=== PATIENT | male | born 1945 | race Caucasian/White ===

== ENCOUNTER 2016-07-29 07:49 | Inpatient (IN) | payer OTHER, MEDICARE ==
[~2016-07-29] VITALS: Ht 170.2 cm; Wt 117.0 kg
--- NOTE | 2016-07-29 07:55 | ED AMS/SEIZURE/WEAK/DIZZY ---
History of Present Illness General Chief Complaint: General Adult Stated Complaint: weakness Source: patient, old records Exam Limitations: no limitations Allergies Coded Allergies: nickel (UNKNOWN 07/10/15) Reconcile Medications Acetaminophen (Acephen) 650 MG SUPP.RECT 1 SUPP IN Q4H PRN PAIN/TEMP>/100 ( Reported) Acetaminophen 325 MG TABLET 2 TAB PO Q4H PRN PAIN/TEMP>/100 (Reported) Allopurinol 100 MG TABLET 2 TAB PO DAILY GOUT (Reported) Amlodipine Besylate 5 MG TABLET 7.5 MG PO DAILY HEART/BP (Reported) Aspirin (Ecotrin*) 81 MG TABLET.DR 1 TAB PO DAILY HEART/BLOOD (Reported) Atorvastatin Calcium 20 MG TABLET 1 TAB PO DAILY CHOLESTEROL (Reported) Docusate Sodium 100 MG CAPSULE 1 CAP PO BID STOOL SOFTENER (Reported) Ezetimibe (Zetia) 10 MG TABLET 1 TAB PO DAILY CHOLESTEROL (Reported) Fluoxetine HCl (Prozac) 40 MG CAPSULE 1 CAP PO DAILY MENTAL HEALTH (Reported) Furosemide (Lasix) 40 MG TABLET 1 TAB PO DAILY DIURETIC (Reported) Gabapentin 300 MG CAPSULE 1 CAP PO BID UNKNOWN (Reported) Gabapentin 600 MG TABLET 1 TAB PO 1600 UNKNOWN (Reported) Guaifenesin 400 MG TABLET 1 TAB PO BID MUCUS (Reported) Insulin Glargine,Hum.rec.anlog (Lantus Solostar) 100 UNIT/ML (3 ML) INSULN.PEN 15 UNITS SC QHS DM (Reported) Ipratropium/Albuterol Sulfate (Iprat-Albut 0.5-3(2.5) MG/3 Ml) 0.5 MG-3 MG (2.5 MG BASE)/3 ML AMPUL.NEB 1 UNIT INH Q4H PRN SOB/WHEEZING/RESP.DISTRESS ( Reported) Lisinopril 30 MG TABLET 60 MG PO DAILY BP (Reported) Mag Hydrox/Al Hydrox/Simeth (Almacone Liquid) (Unknown Strength) ORAL.SUSP 30 ML PO DAILY GI (Reported) Mag Hydrox/Al Hydrox/Simeth (Maalox Advanced Suspension) 200 MG-200 MG-20 MG/5 ML ORAL.SUSP 30 ML PO Q4H PRN GASTRITIS (Reported) Magnesium Hydroxide (Milk Of Magnesia) 400 MG/5 ML ORAL.SUSP 30 ML PO DAILY PRN CONSTIPATION (Reported) Metolazone 2.5 MG TABLET 1 TAB PO Friday UNKNOWN (Reported) Metoprolol Tartrate (Lopressor) 50 MG TABLET 1 TAB PO BID HEART/BP (Reported) Multivitamin (Multi-Day Vitamins) 1 EACH TABLET 1 TAB PO DAILY SUPPLEMENT ( Reported) Na Phos,M-B/Na Phos,Di-Ba (Fleet Enema) 19 GRAM-7 GRAM/118 ML ENEMA 1 E RC DAILY PRN CONSTIPATION (Reported) Oxycodone HCl/Acetaminophen (Percocet 5-325 MG Tablet) 5 MG-325 MG TABLET 1 TAB PO Q8H PRN PAIN (Reported) Pantoprazole Sodium 40 MG TABLET.DR 1 TAB PO DAILY GI (Reported) Phenytoin (Dilantin) 100 MG CAPSULE 2 CAP PO BID SEIZURES (Reported) Polyethylene Glycol 3350 (Miralax) 17 GRAM POWD.PACK 1 PAC PO BID GI ( Reported) dissolve in water Potassium Chloride 20 MEQ TAB.ER.PRT 2 TAB PO 0800 SUPPLEMENT (Reported) Potassium Chloride 20 MEQ TAB.ER.PRT 1 TAB PO 1800 SUPPLEMENT (Reported) Sennosides (Senna) 8.6 MG TABLET 2 TAB PO DAILY GI (Reported) Sodium Chloride (Deep Sea) 0.65 % SPRAY 2 SPRAY NASB TID NASAL CONGESTION ( Reported) Spironolactone (Aldactone) 25 MG TABLET 1 TAB PO DAILY DIURETIC/BP (Reported) Trazodone HCl 50 MG TABLET 25 MG PO PRN INSOMNIA (Reported) Warfarin Sodium (Coumadin) 2.5 MG TABLET 1 TAB PO DAILY BLOOD THINNER ( Reported) Triage Nurses Notes Reviewed? yes Onset: Gradual Duration: week(s):, constant Timing: recent history Injury Environment: home Severity: moderate Severity Numbers: 7 No Modifying Factors: none Associated Symptoms: cough HPI: 70 Year old male biba with history of CVA with aphasia, bed-bound in the senior care, right-sided paralysis, CAD, PAF on coumadin, hypertension, diabetes and obesity presents brought in by ambulance from [facility] due to increased lethargy and weakness for the past few weeks according to the patient's . The patient had an outpatient x-ray performed yesterday that showed no pneumonia however she states that he has been sleeping and lethargic more so than normal. She reports that he had a low-grade fever of 99 yesterday no sick contacts no recent trauma or fall. On arrival the patient is complaining of chronic lower back pain which his states is unchanged from previous as he is normally wheelchair-bound. He denies any leg or arm pain no chest pain abdominal pain nausea vomiting or diarrhea. There are no other modifying factors or associated symptoms otherwise (CHAR CORRAL) Vital Signs & Intake/Output Vital Signs & Intake/Output Vital Signs Date Time Temp Pulse Resp B/P Pulse O2 O2 Flow FiO2 Ox Delivery Rate 07/29 1243 69 18 109/55 99 Room Air Room Air 07/29 1226 76 24 105/54 99 BIPAP 30% 07/29 1210 64 97 / 1207 69 24 102/51 99 BIPAP 30% 07/29 1142 69 24 102/56 96 BIPAP 30% 07/29 1058 98.0 69 2 100/53 BIPAP 07/29 1033 97.1 68 24 108/55 98 BIPAP 30% 07/29 1026 98 04/ 0937 64 20 106/55 99 Nasal 3.0L Cannula 07/29 0925 97.9 74 20 110/56 07/29 0805 96 Nasal 2.0L Cannula 07/29 0759 98.0 70 24 146/65 94 Room Air Past History Medical History Any Pertinent Medical History? see below for history Neurological: CVA (with aphashia) Cardiovascular: AFIB, CAD (W/ STENTS), hypertension, PACEMAKER Pneumonia Vaccine: 11/02/06 Influenza Vaccine: 05/21/11 Surgical History Surgical History: CABG Psychosocial History Who do you live with Other (see notes) Services at Home None What is your primary language Hong Konger Family History Hx Contributory? No (CHAR CORRAL) Review of Systems Review of Systems Constitutional: Reports: see HPI. All Other Systems: Reviewed and Negative Comments Review of systems: See HPI, all other systems negative. Constitutional: No chills (+) fever or weight loss HEENT: No visual changes no sore throat no congestion Cardiovascular: No chest pain ,palpitation , orthopnea or ankle swelling Skin: No jaundice no rashes Respiratory: No dyspnea cough sputum or hemoptysis GI: No nausea no vomiting : No dysuria no hematuria Musclulo skeletal: chronic back pain no neck pain, Neurologic: No numbness no confusion Psych: No stress anxiety or depression,. Heme/endocrine: No bruising no bleeding no polyuria or polydipsia Immunology: No splenectomy (CHAR CORRAL) Physical Exam Physical Exam General Appearance: well developed/nourished, no apparent distress, alert, awake Comments: elderly male in no acute distress HEENT: Normal EENT exam; PERRL, EOMI, HEAD is atraumatic. moist mucous membranes. Neck: Supple, normal range of motion Back: Nontender, no CVA tenderness. Full range of motion Cardiovascular: Regular rate and rhythms no murmurs rubs or gallops, normal JVP Respiratory: Chest nontender.There were no bony deformities, no asymmetry. No respiratory distress. Patient speaking in full complete sentences. Breath sounds clear to auscultation bilaterally: NO W/R/R Abdomen: Soft, nontender nondistended, no appreciable organomegaly. Normal bowel sounds. No rebound/guarding, No ascites. Extremity: No edema, full range of motion of extremities, normal and equal pulses bilaterally, 5 out of 5 strength noted to left upper and lower extremities, right sided extremity weakness chronic secondary to cva Neuro: Alert oriented x3, motor sensory normal, cranial nerves II through XII grossly intact. There were no obvious focal neurologic abnormalities. Skin: No appreciable rash on exposed skin, skin is warm and dry. Psych: Mood and affect is normal, memory and judgment is normal. Core Measures ACS in differential dx? Yes CVA/TIA Diagnosis: No Severe Sepsis Present: No Septic Shock Present: No (NISA TAPIA,CHAR) Progress Differential Diagnosis: arrythmia, anemia, benign positional vertigo, CVA/stroke , dehydration, electrolyte imbalance, GI bleed, hypoglycemia, hypoxia, pneumonia , UTI/pyelo, vertebrobasilar insuff Diagnostic Imaging: Viewed by Me: Radiology Read, CT Scan. Discussed w/RAD: Radiology Read, CT Scan. Radiology Impression: PATIENT: NORAH VOGT PRESENT AGE: 70 PATIENT ACCOUNT NO: [id number] : 45 LOCATION: [facility] ORDERING PHYSICIAN: CHAR TAPIA SERVICE DATE: 07/29/16 EXAM TYPE: RAD - XRY-PORTABLE CHEST XRAY EXAMINATION: XR PORTABLE CHEST CLINICAL INFORMATION: Lethargy and weakness. COMPARISON: 11/21/2012 TECHNIQUE: Portable AP view of the chest was obtained. FINDINGS: Lungs are hypoinflated resulting in crowding of bronchovascular structures in the bases. No evidence of acute interstitial edema, focal consolidation or pleural effusion. Cardiac silhouette is chronically enlarged. The sternotomy wires are intact. There is an AICD/ pacemaker with biventricular leads remaining in their expected positions. No acute skeletal findings. IMPRESSION: Mild cardiomegaly and surgical changes from remote coronary artery bypass grafting. No acute cardiopulmonary findings compared to 11/20/2012. DICTATED BY: RHETT MCDANIEL MD DATE/TIME DICTATED:07/29 SEX CRIMES DETECTIVE:EVERT DATE/TIME TRANSCRIBED:07/29/16910 CONFIDENTIAL, DO NOT COPY WITHOUT APPROPRIATE AUTHORIZATION. <Electronically signed in Other Vendor System> SIGNED BY: RHETT MCDANIEL MD 07/29/16917, PATIENT: NORAH VOGT PRESENT AGE: 70 PATIENT ACCOUNT NO: [id number] : 45 LOCATION: [facility] ORDERING PHYSICIAN: CHAR TAPIA SERVICE DATE: 07/29/16 EXAM TYPE: CAT - CT CHEST WO IV CONTRAST EXAMINATION: CT CHEST WITHOUT CONTRAST CLINICAL INFORMATION: Lethargy. Weakness and cough. COMPARISON: Radiograph from today. CT from 09/04/2008. TECHNIQUE: Multidetector volumetric CT imaging of the chest was done. Axial MIP volume rendering provided. Sagittal and coronal reformatted images were obtained. DLP: 668 mGy-cm FINDINGS: LUNGS: Secretions are seen within the trachea. Scattered bronchial filling defects are noted in the lower lobes. Motion limits evaluation of the lower lobes. Calcified granulomata are noted. Geographic groundglass opacities are seen, most prominently affecting the upper lobes. No pneumothorax. MEDIASTINUM: Left chest wall pacer noted with leads terminating in the right ventricle and coronary sinus. The heart is enlarged. Coronary artery calcifications are present. Small amount of gas seen within the main pulmonary artery, right atrium, and right ventricle. No pericardial effusion. No mediastinal lymphadenopathy. Prominence of the superior mediastinal fat. PLEURA: There is no pleural effusion. No pleural mass or thickening. Pleural calcifications seen at the left base. AXILLA: Multiple small lymph nodes. Edema is seen along the right lateral chest wall. UPPER ABDOMEN: Ascites. Anasarca is seen within the abdominal wall. OSSEOUS STRUCTURES: DISH. No acute or suspicious osseous abnormalities. Median sternotomy wires noted. IMPRESSION: Groundglass opacities bilaterally are nonspecific. These may be infectious or inflammatory in etiology. Hypersensitivity reaction is possible. No septal thickening seen to suggest edema. Scattered filling defects within the bronchi could be associated with aspiration. DICTATED BY: JANEE MASON MD DATE/TIME DICTATED:07/29/161014 SEX CRIMES DETECTIVE:EVERT DATE/TIME TRANSCRIBED:07/29/161014 CONFIDENTIAL, DO NOT COPY WITHOUT APPROPRIATE AUTHORIZATION. <Electronically signed in Other Vendor System> SIGNED BY: JANEE MASON MD 07/29/16 1024 Initial ED EKG: VENTRICULAR PACED AT 70, NONSPECIFIC ST SEG CHANGES,RIGHT AXIS DEVIATION Prior EKG: unchanged (06/2011) Rhythm Strip: paced rhythm (CHAR CORRAL) Plan of Care: Orders Procedure Date/time Status PROTHROMBIN TIME 07/30 0500 Active PHOSPHORUS 07/30 0500 Active MAGNESIUM 07/30 0500 Active HEPATIC FUNCTION PANEL 07/30 0500 Active CBC WITHOUT DIFFERENTIAL 07/30 0500 Active BASIC ELECTROLYTES PLUS BUN&CR 07/30 0500 Active Nothing by Mouth 07/29 L Active BASIC ELECTROLYTES PLUS BUN&CR 07/[address] HEAD WO IV CONTRAST 07/[address] ABD & PELVIS W/O IV CONTRAS 07/29 1248 Active Lab Add-on Test 07/29 1215 Active LACTIC ACID 07/29 1202 Complete ARTERIAL BLOOD GAS (GEN) 07/29 1144 Complete TRC EVALUATION (GEN) 07/29 1054 Active Lab Add-on Test 07/29 1050 Active Admit to inpatient 07/29 1049 Active Pathway - chart 07/29 1047 Active Pathway - chart 07/29 1046 Active House Staff 07/29 1046 Active Patient Data 07/29 1046 Active Code Status 07/29 1046 Active ARTERIAL BLOOD GAS (GEN) 07/29 0927 Complete Patient Data 07/29 0923 Active POTASSIUM-PLASMA 07/29 0923 Complete Add-on Test (ER Only) 07/29 0921 Active Add-on Test (ER Only) 07/29 0904 Active LACTIC ACID 07/29 0902 Complete Straight Cath 07/29 0854 Active Add-on Test (ER Only) 07/29 0851 Active Add-on Test (ER Only) 07/29 0825 Active URINE DRUGS OF ABUSE 07/29 0825 Complete Telemetry/Heat Treat Supervisor 07/29 0823 Active RAPID VIRAL INFLUENZA A 07/29 0810 Complete CULTURE,URINE 07/29 0810 Active BLOOD CULTURE 07/29 0810 Active URINALYSIS 07/29 0810 Complete TROPONIN LEVEL 07/29 0810 Complete PARTIAL THROMBOPLASTIN TIME 07/29 08 Complete PROTHROMBIN TIME 07/29 0810 Complete DILANTIN 07/29 0810 Complete COMPREHENSIVE METABOLIC PANEL 07/29 0810 Complete CBC WITHOUT DIFFERENTIAL 07/29 08 Complete B-TYPE NATRIURETIC PEP (BNP) 07/29 0810 Complete Intake & Output 07/29 0804 Active THYROID STIMULATING HORMONE 07/29 08 Complete MAGNESIUM 07/29 08 Complete CREATINE PHOSPHOKINASE 07/29 0800 Complete EKG 07/29 0756 Active SWALLOW EVALUATION 07/29 UNK Active BIPAP 07/29 UNK Complete VTE Mechanical Prophylaxis 07/29 UNK Active FingerStick- Glucose 07/29 UNK Active [place], Insertion/Removal/Asses 07/29 UNK Active PHYSICIAN CONSULT 07/29 UNK Active ECHOCARDIOGRAM 07/29 UNK Active Current Medications Sig/Phil Start time Last Medication Dose Stop Time Status Admin Insulin Human Regular 0 Q4 07/29 1400 AC (NovoLIN R) Naloxone HCl 0.4 MG ONCE ONE 07/29 1315 UNVr (Narcan) 07/29 1316 Acetaminophen 650 MG Q6P PRN 07/29 1100 AC (Tylenol) Oxycodone/ 1 TAB Q6P PRN 07/29 1100 AC Acetaminophen (Percocet) Oxycodone/ 2 TAB Q6P PRN 07/29 1100 AC Acetaminophen (Percocet) Laboratory Tests 07/29/16 1208: Lactic Acid 1.1 07/29/16 1155: pH 7.30 *L, pCO2 48 H, pO2 90, HCO3 23, ABG O2 Sat (Measured) 95.0 L, P-50 ( Temp Corrected) N, Carboxyhemoglobin 1.4 L, O2 Concentration % 30, Temperature 98.0, Respiration Rate 24, O2 Delivery Method BIPAP, Vent Mode ST, Expiratory Pressure 6, Inspiratory Pressure 18, Phlebotomy Draw Site LEFT RADIAL 07/29/16 0940: pH 7.28 *L, pCO2 50 H, pO2 137 H, HCO3 23, ABG O2 Sat (Measured) 97.0, P-50 ( Temp Corrected) N, Carboxyhemoglobin 1.3 L, O2 Concentration % 3L, Temperature 97.9, O2 Delivery Method N/C, Phlebotomy Draw Site LEFT RADIAL 07/29/16 0923: Plasma Potassium 5.9 H 07/29/16 0911: Lactic Acid 0.7 07/29/16 0828: Urinalysis LIGHT H, Urine Color YEL, Urine Clarity HAZY H, Urine pH 6.0, Ur Specific Mckinney 1.020, Urine Protein 30 H, Urine Ketones NEG, Urine Nitrite NEG, Urine Bilirubin NEG, Urine Urobilinogen 0.2, Ur Leukocyte Esterase MOD H, Ur Microscopic SEDIMENT EXAMINED, Urine RBC 1-3, Urine WBC 5-10 H, Ur Epithelial Cells FEW, Urine Bacteria FEW H, Hyaline Casts 1-3 H, Urine Hemoglobin TRACE-INTACT H, Urine Glucose NEG 07/29/16 0825: Urine Opiates Screen < 100.00, Methadone Screen < 40, Barbiturate Screen 108, Ur Phencyclidine Scrn < 6.00, Amphetamines Screen < 100, U Benzodiazepines Scrn < 85, Urine Cocaine Screen < 50, Urine Cannabis Screen < 5.00 07/29/16 0800: Anion Gap 10, Estimated GFR 46 L, BUN/Creatinine Ratio 34.0 H, Glucose 144 H, Calcium 8.5, Magnesium 3.2 H, Total Bilirubin 0.6, AST 22, ALT 32, Alkaline Phosphatase 135 H, Creatine Kinase < 20 L, Troponin I 0.02, Dbh-K-Sgcvptoepli Pept 6230 H, Total Protein 6.3, Albumin 3.3 L, Globulin 3.0, Albumin/Globulin Ratio 1.1, TSH 1.390, PT 28.0 H, INR 2.69 H, APTT 37, CBC w Diff MAN DIFF ORDERED, RBC 3.77 L, MCV 80.8, MCH 25.5 L, RDW 18.0 H, MPV 7.5, Gran % 83.0 H, Lymphocytes % 9.8 L, Monocytes % 5.7, Eosinophils % 0.6, Basophils % 0.9, Absolute Granulocytes 17.3 H, Absolute Lymphocytes 2.0, Absolute Monocytes 1.2 H, Absolute Eosinophils 0.1, Absolute Basophils 0.2, Platelet Estimate ADEQUATE, Polychromasia 1+, Hypochromic-Microcytic 1+, Anisocytosis 1+, PUBS MCHC 31.6 L, Phenytoin 10.0 Microbiology 07/29 908 NASOPHARYN: Influenza Virus A & B Rapid Smear - COMP 04/10 0830 BLOOD: Blood Culture - RECD 07/29 0828 URINE ROUT: Urine Culture - RECD 07/29 0800 BLOOD: Blood Culture - RECD Labs ordered old records reviewed patient is awake without any complaints at this times Case discussed with Dr. Pizarro will treat with Rocephin 1 g IV given leukocytosis patient remains afebrile and normotensive. I discussed with the patient as well as all this lab results need for admission calcium gluconate 1 g IV ordered, given patient's body habitus and paralysis secondary to previous CVA we'll hold on Kayexalate at this time waiting for plasma potassium 2 results Case discussed with Dr. GOLDMAN- Will admit to telemetry, agrees with plan advised to get CT of the chest to rule out pneumonia 07/29/2016 9:54:19 AM case discussed with Dr. Pizarro will put patient on BIPAP, PT WILL BE upgraded to icu (CHAR CORRAL) Departure Departure Time of Disposition: 923 Disposition: STILL A PATIENT Condition: Stable Clinical Impression Primary Impression: Hypercapnic respiratory failure Secondary Impressions: Hyperkalemia, Leukocytosis, UTI (urinary tract infection) Referrals: CORTEZ GOLDMAN MD (PCP/Family) Departure Forms: Customer Survey General Discharge Information Admission Note Spoke With: CORTEZ GOLDMAN MD Documentation of Exam: Documentation of any treatments & extenuating circumstances including Concerns Regarding Discharge (functional status, medication knowledge or non-compliance, living conditions, etc.) that warrant an admission rather than observation: trend labs, cultures, iv abx, cardiology consult, premature discharge would be medically harmful (CHAR CORRAL) PA/FIRE INVESTIGATION LIEUTENANT Co-Sign Statement Statement: ED Attending supervision documentation- [X] I saw and evaluated the patient. I have also reviewed all the pertinent lab results and diagnostic results. I agree with the findings and the plan of care as documented in the PA's/FIRE INVESTIGATION LIEUTENANT's documentation. [] I have reviewed the ED Record and agree with the PA's/FIRE INVESTIGATION LIEUTENANT's documentation. [] Additions or exceptions (if any) to the PAs/FIRE INVESTIGATION LIEUTENANT's note and plan are summarized below: [] (SEVEN PRESLEY,LYNNE Fernandez) Critical Care Note Critical Care Note Critical Care Time: 30-74 min (CHAR CORRAL)
[2016-07-29 08:36] LABS: ABSOLUTE BASOPHIL COUNT 0.2 /CUMM (0.0-0.2); ABSOLUTE EOSINOPHIL COUNT 0.1 /CUMM (0.0-0.7); ABSOLUTE GRANULOCYTE CT 17.3 /CUMM (1.4-6.5); ABSOLUTE MONOCYTE COUNT 1.2 /CUMM (0.10-0.60); BASOPHIL % 0.9 % (0.0-2.0); EOSINOPHIL % 0.6 % (0-5); HEMATOCRIT 30.4 % (42-52); MEAN CORPUSCULAR HGB 25.5 PG (27.0-31.0); MEAN CORPUSCULAR HGB CONC 31.6 G/DL (33.0-37.0); MEAN CORPUSCULAR VOLUME 80.8 FL (80.0-94.0); MEAN PLATELET VOLUME 7.5 FL (7.4-10.4); PLATELET COUNT 282 /CUMM (130-400); RED BLOOD CELL CT 3.77 /CUMM (4.70-6.10); WHITE BLOOD CELL COUNT 20.9 /CUMM (4.8-10.8)
[2016-07-29 08:46] LABS: PTT 37 SEC (25-37)
--- NOTE | 2016-07-29 09:18 | RADIOLOGY REPORT ---
EXAMINATION: XR PORTABLE CHEST CLINICAL INFORMATION: Lethargy and weakness. COMPARISON: 11/21/2012 TECHNIQUE: Portable AP view of the chest was obtained. FINDINGS: Lungs are hypoinflated resulting in crowding of bronchovascular structures in the bases. No evidence of acute interstitial edema, focal consolidation or pleural effusion. Cardiac silhouette is chronically enlarged. The sternotomy wires are intact. There is an AICD/pacemaker with biventricular leads remaining in their expected positions. No acute skeletal findings. IMPRESSION: Mild cardiomegaly and surgical changes from remote coronary artery bypass grafting. No acute cardiopulmonary findings compared to 11/20/2012.
--- NOTE | 2016-07-29 09:25 | History & Physical ---
JULIO LONG 07/29/16 0925: General Information and HPI MD Statement: I have seen and personally examined NORAH NG and documented this H&P. The patient is a 70 year old M who presented with a patient stated chief complaint of [progressive lethargy]. 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 At his baseline he is interactive on a daily basis is able to feed himself and utilize his left leg for mobility. His reports that over the past week he has been noted to be sleeping more during the day, a leak at night. A urinalysis was performed last week which did not come back remarkable. There was concern for possible aspiration pneumonia and a CXR was also unremarkable. Over the past 2 days his generalized lethargy has become more pronounced with associated decrease PO intake. His reports that one medication change included a decrease in oxycodone and ?? increasing his gabapentin dose due to chronic constipation secondary to narcotics. This morning he was noted to have a low-grade temperature and blood pressure 90/ 60 prior to arrival in the ED. Allergies/Medications Allergies: Coded Allergies: nickel (UNKNOWN 07/10/15) Home Med list Acetaminophen (Acephen) 650 MG SUPP.RECT 1 SUPP CO Q4H PRN PAIN/TEMP>/100 ( Reported) Acetaminophen 325 MG TABLET 2 TAB PO Q4H PRN PAIN/TEMP>/100 (Reported) Allopurinol 100 MG TABLET 2 TAB PO DAILY GOUT (Reported) Amlodipine Besylate 5 MG TABLET 7.5 MG PO DAILY HEART/BP (Reported) Aspirin (Ecotrin*) 81 MG TABLET.DR 1 TAB PO DAILY HEART/BLOOD (Reported) Atorvastatin Calcium 20 MG TABLET 1 TAB PO DAILY CHOLESTEROL (Reported) Docusate Sodium 100 MG CAPSULE 1 CAP PO BID STOOL SOFTENER (Reported) Ezetimibe (Zetia) 10 MG TABLET 1 TAB PO DAILY CHOLESTEROL (Reported) Fluoxetine HCl (Prozac) 40 MG CAPSULE 1 CAP PO DAILY MENTAL HEALTH (Reported) Furosemide (Lasix) 40 MG TABLET 1 TAB PO DAILY DIURETIC (Reported) Gabapentin 300 MG CAPSULE 1 CAP PO BID UNKNOWN (Reported) Gabapentin 600 MG TABLET 1 TAB PO 1600 UNKNOWN (Reported) Guaifenesin 400 MG TABLET 1 TAB PO BID MUCUS (Reported) Insulin Glargine,Hum.rec.anlog (Lantus Solostar) 100 UNIT/ML (3 ML) INSULN.PEN 15 UNITS SC QHS DM (Reported) Ipratropium/Albuterol Sulfate (Iprat-Albut 0.5-3(2.5) MG/3 Ml) 0.5 MG-3 MG (2.5 MG BASE)/3 ML AMPUL.NEB 1 UNIT INH Q4H PRN SOB/WHEEZING/RESP.DISTRESS ( Reported) Lisinopril 30 MG TABLET 60 MG PO DAILY BP (Reported) Mag Hydrox/Al Hydrox/Simeth (Almacone Liquid) (Unknown Strength) ORAL.SUSP 30 ML PO DAILY GI (Reported) Mag Hydrox/Al Hydrox/Simeth (Maalox Advanced Suspension) 200 MG-200 MG-20 MG/5 ML ORAL.SUSP 30 ML PO Q4H PRN GASTRITIS (Reported) Magnesium Hydroxide (Milk Of Magnesia) 400 MG/5 ML ORAL.SUSP 30 ML PO DAILY PRN CONSTIPATION (Reported) Metolazone 2.5 MG TABLET 1 TAB PO Friday UNKNOWN (Reported) Metoprolol Tartrate (Lopressor) 50 MG TABLET 1 TAB PO BID HEART/BP (Reported) Multivitamin (Multi-Day Vitamins) 1 EACH TABLET 1 TAB PO DAILY SUPPLEMENT ( Reported) Na Phos,M-B/Na Phos,Di-Ba (Fleet Enema) 19 GRAM-7 GRAM/118 ML ENEMA 1 E RC DAILY PRN CONSTIPATION (Reported) Oxycodone HCl/Acetaminophen (Percocet 5-325 MG Tablet) 5 MG-325 MG TABLET 1 TAB PO Q8H PRN PAIN (Reported) Pantoprazole Sodium 40 MG TABLET.DR 1 TAB PO DAILY GI (Reported) Phenytoin (Dilantin) 100 MG CAPSULE 2 CAP PO BID SEIZURES (Reported) Polyethylene Glycol 3350 (Miralax) 17 GRAM POWD.PACK 1 PAC PO BID GI ( Reported) dissolve in water Potassium Chloride 20 MEQ TAB.ER.PRT 2 TAB PO 0800 SUPPLEMENT (Reported) Potassium Chloride 20 MEQ TAB.ER.PRT 1 TAB PO 1800 SUPPLEMENT (Reported) Sennosides (Senna) 8.6 MG TABLET 2 TAB PO DAILY GI (Reported) Sodium Chloride (Deep Sea) 0.65 % SPRAY 2 SPRAY NASB TID NASAL CONGESTION ( Reported) Spironolactone (Aldactone) 25 MG TABLET 1 TAB PO DAILY DIURETIC/BP (Reported) Trazodone HCl 50 MG TABLET 25 MG PO PRN INSOMNIA (Reported) Warfarin Sodium (Coumadin) 2.5 MG TABLET 1 TAB PO DAILY BLOOD THINNER ( Reported) Past History Travel History Traveled to [place] past 21 day No Medical History Neurological: CVA (with aphashia) Cardiovascular: AFIB, CAD (W/ STENTS), hypertension, PACEMAKER Endocrine: diabetes Pneumonia Vaccine: 11/02/06 Influenza Vaccine: 05/21/11 Surgical History Surgical History: CABG Past Family/Social History Psychosocial History Services at Home: None Review of Systems Review of Systems Constitutional: Reports: see HPI. EENTM: Reports: see HPI. Cardiovascular: Reports: see HPI. Respiratory: Reports: see HPI. GI: Reports: see HPI. Genitourinary: Reports: see HPI. Musculoskeletal: Reports: see HPI. Exam & Diagnostic Data Last 24 Hrs of Vital Signs/I&O Vital Signs Date Time Temp Pulse Resp B/P Pulse O2 O2 Flow FiO2 Ox Delivery Rate 07/29 1058 98.0 69 2 100/53 BIPAP 07/29 1033 97.1 68 24 108/55 98 BIPAP 30% 07/29 1026 98 07/29 0937 64 20 106/55 99 Nasal 3.0L Cannula 07/29 0925 97.9 74 20 110/56 07/29 0805 96 Nasal 2.0L Cannula 07/29 0759 98.0 70 24 146/65 94 Room Air Intake & Output 07/29 1600 07/29 0800 07/29 0000 Intake Total Output Total 200 Balance -200 Output, Urine 200 Patient 255 lb Weight Physical Exam General Appearance patient is laying in bed unresponsive at this time, minimally arousable to sternal rub Skin No Breakdown HEENT Mucous Membr. moist/pink Cardiovascular Normal S1, Normal S2, irregularly irregular heart rhythm. Distant heart sounds Lungs currently on BiPAP, distant lung sounds, no evidence of wheezing at this time Abdomen Soft, No Tenderness, distended abdomen, tympanic to percussion Neurological unable to complete neuro assessment at this time due to clinical condition. Positive Babinski on left foot Extremities Normal Pulses, 2+ pitting edema on RLE, chronic Vascular Pulses Symmetrical Last 24 Hrs of Labs/Emil: Laboratory Tests 07/29/16 0940: pH 7.28 *L, pCO2 50 H, pO2 137 H, HCO3 23, ABG O2 Sat (Measured) 97.0, P-50 ( Temp Corrected) N, Carboxyhemoglobin 1.3 L, O2 Concentration % 3L, Temperature 97.9, O2 Delivery Method N/C, Phlebotomy Draw Site LEFT RADIAL 07/29/16 0923: Plasma Potassium 5.9 H 07/29/16 0911: Lactic Acid 0.7 07/29/16 0828: Urinalysis LIGHT H, Urine Color YEL, Urine Clarity HAZY H, Urine pH 6.0, Ur Specific Donna 1.020, Urine Protein 30 H, Urine Ketones NEG, Urine Nitrite NEG, Urine Bilirubin NEG, Urine Urobilinogen 0.2, Ur Leukocyte Esterase MOD H, Ur Microscopic SEDIMENT EXAMINED, Urine RBC 1-3, Urine WBC 5-10 H, Ur Epithelial Cells FEW, Urine Bacteria FEW H, Hyaline Casts 1-3 H, Urine Hemoglobin TRACE-INTACT H, Urine Glucose NEG 07/29/16 0800: Anion Gap 10, Estimated GFR 46 L, BUN/Creatinine Ratio 34.0 H, Glucose 144 H, Calcium 8.5, Magnesium 3.2 H, Total Bilirubin 0.6, AST 22, ALT 32, Alkaline Phosphatase 135 H, Creatine Kinase < 20 L, Troponin I 0.02, Fzd-S-Yexsqjhmaai Pept 6230 H, Total Protein 6.3, Albumin 3.3 L, Globulin 3.0, Albumin/Globulin Ratio 1.1, TSH 1.390, PT 28.0 H, INR 2.69 H, APTT 37, CBC w Diff MAN DIFF ORDERED, RBC 3.77 L, MCV 80.8, MCH 25.5 L, RDW 18.0 H, MPV 7.5, Gran % 83.0 H, Lymphocytes % 9.8 L, Monocytes % 5.7, Eosinophils % 0.6, Basophils % 0.9, Absolute Granulocytes 17.3 H, Absolute Lymphocytes 2.0, Absolute Monocytes 1.2 H, Absolute Eosinophils 0.1, Absolute Basophils 0.2, Platelet Estimate ADEQUATE, Polychromasia 1+, Hypochromic-Microcytic 1+, Anisocytosis 1+, PUBS MCHC 31.6 L, Phenytoin 10.0 Microbiology 07/29 908 NASOPHARYN: Influenza Virus A & B Rapid Smear - COMP 07/29 0830 BLOOD: Blood Culture - RECD 07/29 0828 URINE ROUT: Urine Culture - RECD 07/29 0800 BLOOD: Blood Culture - RECD Diagnostic Data EKG Results Ventricular paced rhythm. HR 70 bpm. Low voltage throughout. Nonspecific ST depression. QTC 441 CXR Results Mild cardiomegaly and surgical changes from remote coronary artery bypass grafting. No acute cardiopulmonary findings compared to 11/20/2012. Other Results CT chest: Groundglass opacities bilaterally are nonspecific. These may be infectious or inflammatory in etiology. Hypersensitivity reaction is possible. No septal thickening seen to suggest edema. Scattered filling defects within the bronchi could be associated with aspiration. 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 VS on admission: BP 146/65, HR 70, RR 24, SPO2 94% on 3L NC, T 98.0 Pertinent labs: WBC 20.9, H&H 9.6/30.4, platelets 282, potassium 6.0, chloride 104, bicarbonate 24, BUN/CR 51/1.5, glucose 144 INR: 2.69 AB.28/50/137/23/3L NC ProBNP: 6230 Troponin: 0.02 Urinalysis: Moderate LE, 5-10 WBCs, few bacteria, positive hemoglobin Problem list: 1. Hypercarbic restrictive failure 2. SIRS criteria: WBC 20.9, RR 24 3. Aspiration versus HCAP 4. Hyperkalemia 5. Chronic kidney disease 6. HFrEF (LVEF 35-40% 2011), pulm HTN (60mmHG), CAD s/p CABG (2001), AICD (2007) 7. Previous history of CVA with right-sided deficits 8. BROOKS not on CPAP 9. Obesity Plan: 1. Hypercarbic restrictive failure * Etiology may be secondary to recent changes in his gabapentin dose with underlying chronic kidney disease * Consider holding off on gabapentin, gentle hydration and monitor for clinical improvement * Patient is currently on BiPAP * Will follow up phos level and replete for > 2.0 2. SIRS criteria: WBC 20.9, RR 24 * Etiology could be secondary to aspiration pneumonia vs UTI (less likely in the setting of unremarkable UA) * We'll start patient on vancomycin and ceftaz * Follow-up urine and blood cultures and adjust antibiotics accordingly 3. Aspiration versus HCAP * Recommendations as above * Vancomycin 1.5 g daily, ceftaz 1 g BID 4. Hyperkalemia * Patient has been on spironolactone. In the setting of renal insufficiency this may be the likely etiology * Calcium gluconate 1, insulin 10 units, 1 amp of dextrose * Repeat electrolytes at 2 PM 5. Chronic kidney disease * Renal function appears to be patient's baseline: BUN/CR 51/1.5 * With nephrotoxic agents 6. HFrEF (LVEF 35-40% 2011), pulm HTN (60mmHG), CAD s/p CABG (2001), AICD (2007) * Repeat echocardiogram * Obtain cardio consult in the setting of borderline hypotension 7. Previous Hx of CVA * Swallow eval once more awake * Continue iwht antiplatelet therapy 8. BROOKS not on CPAP * Current settings 05/10 at 25 BPM * Adjust pressures based on patient's systolic blood pressure DVT prophylaxis - heparin Code status - DNR/DNI As Ranked By This Provider Problem List: 1. Hypercapnic respiratory failure 2. SIRS (systemic inflammatory response syndrome) 3. Aspiration pneumonia 4. Hyperkalemia 5. CKD (chronic kidney disease) 6. HFrEF (heart failure with reduced ejection fraction) 7. Obstructive sleep apnea syndrome Core Measures/Miscellaneous Acute Coronary Syndrome ACS Diagnosis: No Cerebrovascular Accident CVA/TIA Diagnosis: No Congestive Heart Failure CHF Diagnosis: No Venous Thromboembolism VTE Risk Factors: Age > 40 No Mech VTE prophylaxis d/t: No contraindications No VTE Pharm Prophylaxis d/t: No contraindications VTE Diagnosis: No VTE Type: NONE VTE Confirmed by (Test): NONE Severe Sepsis Severe Sepsis Present: No Septic Shock Septic Shock Present: No Miscellaneous Documentation Attending Case Discussed With: WISAM PAN MD Primary Care Physician: CORTEZ GOLDMAN MD Patient sees these Specialists Dr Ortiz - cardiology Level of Patient Care: Critical Care (CRI) Resident Review Statement Resident Statement: examined this patient, discussed with email marketing intern, agreed with email marketing intern, discussed with family, reviewed EMR data (avail), discussed with nursing , reviewed images WISAM PAN MD 07/29/16 1613: Attending MD Review Statement Attending Statement Attending MD Statement: examined this patient, discuss w/resident/PA/APPRENTICE PAINTER BRUSH, agreed w/resident/PA/APPRENTICE PAINTER BRUSH, discussed with family, reviewed EMR data (avail) Attending Assessment/Plan: Patient is mostly unresponsive on evaluation General Appearance: Alert, No Acute Distress Skin: Grossly normal HEENT: PEERLA Neck: Supple, No JVD Cardiovascular: Regular Rate, Normal S1, Normal S2, No Murmurs Lungs: Clear to Auscultation, Normal Air Movement Abdomen: Soft non tender abdomen, normal bowel sounds Neurological: Normal Speech, Strength at 5/5 X4 Ext, Cranial Nerves 3-12 NL, Reflexes 2+ Extremities: No Clubbing, No Cyanosis, No Edema Vascular: Normal Pulses Assessment 70-year-old with history of CHF, pulmonary hypertension, coronary artery disease , status post AICD, CVA with right-sided deficit currently wheelchair bound and a skilled nursing resident with history of diabetes, obstructive sleep apnea noncompliant on CPAP presenting with lethargy and unresponsiveness. He presents with high leukocytosis and CAT scan suggested possible aspiration pneumonia. He also had a low blood pressure not I will suggesting sepsis and ABG shows hypercarbic respiratory failure probably in the setting of aspiration and sepsis. Plan Continue IV antibiotics Follow-up cultures Place patient on BiPAP until mental function improved Speech evaluation Keep nothing by mouth Continue IV fluids and place a [place] insulin sliding scale and accuchecks Repeat potassium levels in 6 hours Repeat echocardiogram and check troponins 3 DVT prophylaxis Patient is DNI/DNR
--- NOTE | 2016-07-29 10:24 | CT SCAN REPORT ---
EXAMINATION: CT CHEST WITHOUT CONTRAST CLINICAL INFORMATION: Lethargy. Weakness and cough. COMPARISON: Radiograph from today. CT from 09/04/2008. TECHNIQUE: Multidetector volumetric CT imaging of the chest was done. Axial MIP volume rendering provided. Sagittal and coronal reformatted images were obtained. DLP: 668 mGy-cm FINDINGS: LUNGS: Secretions are seen within the trachea. Scattered bronchial filling defects are noted in the lower lobes. Motion limits evaluation of the lower lobes. Calcified granulomata are noted. Geographic groundglass opacities are seen, most prominently affecting the upper lobes. No pneumothorax. MEDIASTINUM: Left chest wall pacer noted with leads terminating in the right ventricle and coronary sinus. The heart is enlarged. Coronary artery calcifications are present. Small amount of gas seen within the main pulmonary artery, right atrium, and right ventricle. No pericardial effusion. No mediastinal lymphadenopathy. Prominence of the superior mediastinal fat. PLEURA: There is no pleural effusion. No pleural mass or thickening. Pleural calcifications seen at the left base. AXILLA: Multiple small lymph nodes. Edema is seen along the right lateral chest wall. UPPER ABDOMEN: Ascites. Anasarca is seen within the abdominal wall. OSSEOUS STRUCTURES: DISH. No acute or suspicious osseous abnormalities. Median sternotomy wires noted. IMPRESSION: Groundglass opacities bilaterally are nonspecific. These may be infectious or inflammatory in etiology. Hypersensitivity reaction is possible. No septal thickening seen to suggest edema. Scattered filling defects within the bronchi could be associated with aspiration.
--- NOTE | 2016-07-29 11:22 | Cons- CRCU ---
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 As per his over the past week he has been more sleepy and lethargic.At the rehab, a UA was performed last week which was negative.There was also concern for possible aspiration pneumonia and a chest x-ray as OP was done which was unremarkable however he continued to feel more tired, had poor by mouth intake, recently there was a decrease in his oxycodone and increase in his gabapentin dose due to chronic constipation secondary to narcotics. On presentation at the emergency department he had a low-grade temperature and a blood pressure of 90/16 prior to arrival to the ED Allergies/Medications Allergies: Coded Allergies: nickel (UNKNOWN 07/10/15) Home Med List: Acetaminophen (Acephen) 650 MG SUPP.RECT 1 SUPP GA Q4H PRN PAIN/TEMP>/100 ( Reported) Acetaminophen 325 MG TABLET 2 TAB PO Q4H PRN PAIN/TEMP>/100 (Reported) Allopurinol 100 MG TABLET 2 TAB PO DAILY GOUT (Reported) Amlodipine Besylate 5 MG TABLET 7.5 MG PO DAILY HEART/BP (Reported) Aspirin (Ecotrin*) 81 MG TABLET.DR 1 TAB PO DAILY HEART/BLOOD (Reported) Atorvastatin Calcium 20 MG TABLET 1 TAB PO DAILY CHOLESTEROL (Reported) Docusate Sodium 100 MG CAPSULE 1 CAP PO BID STOOL SOFTENER (Reported) Ezetimibe (Zetia) 10 MG TABLET 1 TAB PO DAILY CHOLESTEROL (Reported) Fluoxetine HCl (Prozac) 40 MG CAPSULE 1 CAP PO DAILY MENTAL HEALTH (Reported) Furosemide (Lasix) 40 MG TABLET 1 TAB PO DAILY DIURETIC (Reported) Gabapentin 300 MG CAPSULE 1 CAP PO BID UNKNOWN (Reported) Gabapentin 600 MG TABLET 1 TAB PO 1600 UNKNOWN (Reported) Guaifenesin 400 MG TABLET 1 TAB PO BID MUCUS (Reported) Insulin Glargine,Hum.rec.anlog (Lantus Solostar) 100 UNIT/ML (3 ML) INSULN.PEN 15 UNITS SC QHS DM (Reported) Ipratropium/Albuterol Sulfate (Iprat-Albut 0.5-3(2.5) MG/3 Ml) 0.5 MG-3 MG (2.5 MG BASE)/3 ML AMPUL.NEB 1 UNIT INH Q4H PRN SOB/WHEEZING/RESP.DISTRESS ( Reported) Lisinopril 30 MG TABLET 60 MG PO DAILY BP (Reported) Mag Hydrox/Al Hydrox/Simeth (Almacone Liquid) (Unknown Strength) ORAL.SUSP 30 ML PO DAILY GI (Reported) Mag Hydrox/Al Hydrox/Simeth (Maalox Advanced Suspension) 200 MG-200 MG-20 MG/5 ML ORAL.SUSP 30 ML PO Q4H PRN GASTRITIS (Reported) Magnesium Hydroxide (Milk Of Magnesia) 400 MG/5 ML ORAL.SUSP 30 ML PO DAILY PRN CONSTIPATION (Reported) Metolazone 2.5 MG TABLET 1 TAB PO Friday UNKNOWN (Reported) Metoprolol Tartrate (Lopressor) 50 MG TABLET 1 TAB PO BID HEART/BP (Reported) Multivitamin (Multi-Day Vitamins) 1 EACH TABLET 1 TAB PO DAILY SUPPLEMENT ( Reported) Na Phos,M-B/Na Phos,Di-Ba (Fleet Enema) 19 GRAM-7 GRAM/118 ML ENEMA 1 E RC DAILY PRN CONSTIPATION (Reported) Oxycodone HCl/Acetaminophen (Percocet 5-325 MG Tablet) 5 MG-325 MG TABLET 1 TAB PO Q8H PRN PAIN (Reported) Pantoprazole Sodium 40 MG TABLET.DR 1 TAB PO DAILY GI (Reported) Phenytoin (Dilantin) 100 MG CAPSULE 2 CAP PO BID SEIZURES (Reported) Polyethylene Glycol 3350 (Miralax) 17 GRAM POWD.PACK 1 PAC PO BID GI ( Reported) dissolve in water Potassium Chloride 20 MEQ TAB.ER.PRT 2 TAB PO 0800 SUPPLEMENT (Reported) Potassium Chloride 20 MEQ TAB.ER.PRT 1 TAB PO 1800 SUPPLEMENT (Reported) Sennosides (Senna) 8.6 MG TABLET 2 TAB PO DAILY GI (Reported) Sodium Chloride (Deep Sea) 0.65 % SPRAY 2 SPRAY NASB TID NASAL CONGESTION ( Reported) Spironolactone (Aldactone) 25 MG TABLET 1 TAB PO DAILY DIURETIC/BP (Reported) Trazodone HCl 50 MG TABLET 25 MG PO PRN INSOMNIA (Reported) Warfarin Sodium (Coumadin) 2.5 MG TABLET 1 TAB PO DAILY BLOOD THINNER ( Reported) Current Medications: Current Medications Sig/Phil Start time Last Medication Dose Route Stop Time Status Admin Acetaminophen 650 MG Q6P PRN 07/29 1100 AC PO Allopurinol 200 MG DAILY 07/30 1000 AC PO Aspirin Buffered 81 MG DAILY 07/30 1000 AC PO Atorvastatin Calcium 20 MG DAILY 07/30 1000 AC PO Calcium Gluconate 0 .STK-MED ONE 07/29 0922 DC IV Calcium Gluconate 1 GM ONCE ONE 07/29 0815 DC 07/29 Sodium Chloride 100 ML IV 07/29 1014 0934 Ceftazidime 0 .STK-MED ONE 07/29 1123 DC .ROUTE Ceftazidime 1,000 MG Q12H 07/29 1100 AC 07/29 IV 1147 Ceftriaxone Sodium 0 .STK-MED ONE 07/29 0922 DC .ROUTE Ceftriaxone Sodium 1,000 MG ONCE ONE 07/29 0915 DC 07/29 IV 07/29 0916 0934 Dextrose 0 .STK-MED ONE 07/29 1123 DC IV Dextrose 25 GM ONCE ONE 07/29 1100 DC 07/29 IV 07/29 1101 1147 Docusate Sodium 100 MG BID 07/29 2200 AC PO Ezetimibe 10 MG DAILY 07/30 1000 AC PO Fluoxetine HCl 40 MG DAILY 07/30 1000 AC PO Insulin Detemir 15 UNITS AT BEDTIME 07/29 2200 AC SC Insulin Human Regular 0 Q4 07/29 1400 AC SC Insulin Human Regular 10 UNITS ONCE ONE 07/29 1100 DC 07/29 IV 07/29 1101 1147 Magnesium Hydroxide 30 ML DAILY PRN 07/29 1315 AC PO Naloxone HCl 0.4 MG ONCE ONE 07/29 1315 DC 07/29 IV 07/29 1316 1324 Oxycodone/ 1 TAB Q6P PRN 07/29 1100 AC Acetaminophen PO Oxycodone/ 2 TAB Q6P PRN 07/29 1100 AC Acetaminophen PO Phenytoin 200 MG BID 07/29 2200 AC PO Polyethylene Glycol 17 GM BID 07/29 2200 AC PO Senna 187 MG DAILY 07/30 1000 AC PO Vancomycin HCl 1,500 MG DAILY 07/29 1100 AC 07/29 Sodium Chloride 250 ML IV 1147 Review of Systems Review of Systems Constitutional: Denies: see HPI. Past History Travel History Traveled to [place] past 21 day No Medical History Neurological: CVA (with aphashia) Cardiovascular: AFIB, CAD (W/ STENTS), hypertension, PACEMAKER Endocrine: diabetes Surgical History Surgical History: CABG Psychosocial History Where Do You Live? Retirement Facility Services at Home: None Functional Ability ADLs Needs Assist: dressing, eating, toileting, bathing. Ambulation: wheelchair Exam & Diagnostic Data Last 24 Hrs of Vital Signs/I&O Vital Signs Date Time Temp Pulse Resp B/P Pulse O2 O2 Flow FiO2 Ox Delivery Rate 07/29 1411 74 98 07/29 1347 69 24 112/54 99 BIPAP 30% 07/29 1243 69 18 109/55 99 Room Air Room Air 07/29 1226 76 24 105/54 99 BIPAP 30% 07/29 1210 64 97 07/29 1207 69 24 102/51 99 BIPAP 30% 07/29 1142 69 24 102/56 96 BIPAP 30% 07/29 1058 98.0 69 2 100/53 BIPAP 07/29 1033 97.1 68 24 108/55 98 BIPAP 30% 07/29 1026 98 07/29 0937 64 20 106/55 99 Nasal 3.0L Cannula 07/29 0925 97.9 74 20 110/56 07/29 0805 96 Nasal 2.0L Cannula 07/29 0759 98.0 70 24 146/65 94 Room Air Intake & Output 07/29 1600 07/29 0800 07/29 0000 Intake Total 250 Output Total 300 Balance -50 Intake, IV 250 Output, Urine 300 Patient 115.666 kg Weight Physical Exam General Appearance: patient unresponsive at thsi time, minimal arousable to sternal rub. Head: atraumatic, normal appearance Ears, Nose, Throat: normal pharynx Neck: normal inspection, supple Respiratory: normal breath sounds, chest non-tender, no respiratory distress Cardiovascular: regular rate/rhythm Peripheral Pulses: 2+ radial (R), 2+ radial (L) Gastrointestinal: normal bowel sounds, soft, non-tender Last 48 Hrs of Labs/Emil: Laboratory Tests 07/29/16 1208: Lactic Acid 1.1 07/29/16 1155: pH 7.30 *L, pCO2 48 H, pO2 90, HCO3 23, ABG O2 Sat (Measured) 95.0 L, P-50 ( Temp Corrected) N, Carboxyhemoglobin 1.4 L, O2 Concentration % 30, Temperature 98.0, Respiration Rate 24, O2 Delivery Method BIPAP, Vent Mode ST, Expiratory Pressure 6, Inspiratory Pressure 18, Phlebotomy Draw Site LEFT RADIAL 07/29/16 0940: pH 7.28 *L, pCO2 50 H, pO2 137 H, HCO3 23, ABG O2 Sat (Measured) 97.0, P-50 ( Temp Corrected) N, Carboxyhemoglobin 1.3 L, O2 Concentration % 3L, Temperature 97.9, O2 Delivery Method N/C, Phlebotomy Draw Site LEFT RADIAL 07/29/16 0923: Plasma Potassium 5.9 H 07/29/16 0911: Lactic Acid 0.7 07/29/16 0828: Urinalysis LIGHT H, Urine Color YEL, Urine Clarity HAZY H, Urine pH 6.0, Ur Specific [place] 1.020, Urine Protein 30 H, Urine Ketones NEG, Urine Nitrite NEG, Urine Bilirubin NEG, Urine Urobilinogen 0.2, Ur Leukocyte Esterase MOD H, Ur Microscopic SEDIMENT EXAMINED, Urine RBC 1-3, Urine WBC 5-10 H, Ur Epithelial Cells FEW, Urine Bacteria FEW H, Hyaline Casts 1-3 H, Urine Hemoglobin TRACE-INTACT H, Urine Glucose NEG 07/29/16 0825: Urine Opiates Screen < 100.00, Methadone Screen < 40, Barbiturate Screen 108, Ur Phencyclidine Scrn < 6.00, Amphetamines Screen < 100, U Benzodiazepines Scrn < 85, Urine Cocaine Screen < 50, Urine Cannabis Screen < 5.00 07/29/16 0800: Anion Gap 10, Estimated GFR 46 L, BUN/Creatinine Ratio 34.0 H, Glucose 144 H, Calcium 8.5, Magnesium 3.2 H, Total Bilirubin 0.6, AST 22, ALT 32, Alkaline Phosphatase 135 H, Creatine Kinase < 20 L, Troponin I 0.02, Uzm-O-Lysmjjjuulg Pept 6230 H, Total Protein 6.3, Albumin 3.3 L, Globulin 3.0, Albumin/Globulin Ratio 1.1, TSH 1.390, PT 28.0 H, INR 2.69 H, APTT 37, CBC w Diff MAN DIFF ORDERED, RBC 3.77 L, MCV 80.8, MCH 25.5 L, RDW 18.0 H, MPV 7.5, Gran % 83.0 H, Lymphocytes % 9.8 L, Monocytes % 5.7, Eosinophils % 0.6, Basophils % 0.9, Absolute Granulocytes 17.3 H, Absolute Lymphocytes 2.0, Absolute Monocytes 1.2 H, Absolute Eosinophils 0.1, Absolute Basophils 0.2, Platelet Estimate ADEQUATE, Polychromasia 1+, Hypochromic-Microcytic 1+, Anisocytosis 1+, PUBS MCHC 31.6 L, Phenytoin 10.0 Microbiology 07/29 0909 NASOPHARYN: Influenza Virus A & B Rapid Smear - COMP Diagnostic Data EKG Results Ventricular paced rhythm. HR 70 bpm. Low voltage throughout. Nonspecific ST depression. QTC 441 CXR Results Mild cardiomegaly and surgical changes from remote coronary artery bypass grafting. No acute cardiopulmonary findings compared to 11/20/2012. 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 Today on 07/29/2016 with chief complaint of progressive lethargy and weakness with recent UA and chest x-ray done at short-term rehabilitation found to be negative. His vitals on admission : blood pressure 146/65, heart rate of 70, respiration of 24, SPO2 of 94% on 3 L of nasal cannula, MAXIMUM TEMPERATURE is 98.0. On presentation he had a white count of 20.9, no bands, H/H of 9.6/30.4, platelet of 282, potassium of 6, chloride of 104, bicarbonate 24, and/creatinine of 51/1.5, glucose of 144,INR is 2.69, ABG and 0.28/50/137/23/3 L of nasal cannula, proBNP 6230, troponin of 0.02, urinalysis showed moderate leukocyte esterase, 5-10 RBCs, few bacteria, positive hemoglobin. Respiratory Acute hypercarbic respiratory failure. Suspected pneumonia. Obstructive sleep apnea * Patient was found to be hypercarbic. * Continue Bipap to maintain o2 sats >92% * We will hold Percocet as well as gabapentin as that could be the contribution cause. * Chest x-ray showed mild cardiomegaly and surgical changes from remote CABG, no acute cardiopulmonary findings were found. * CAT scan however bilateral groundglass opacity, was suspected infectious versus inflammatory or an hypersensitivity reaction. * Will continue IV vancomycin and ceftazidime for now. * Patient did receive one time of IV ceftriaxone while in the emergency department. * Ct trc/ nebs ID * white Count of 20.9, no bands. * Patient was not on any chronic steroids. * Patient is afebrile on presentation. * Ct chest shows bilateral groundglass opacities suspected of pneumonia versus inflmmation or hypersensitivity reaction, not completely convincing of pneumonia. * Patient did receive 1 g of IV ceftriaxone at the emergency department. * UA showed 8-10 WBCs, moderate leukocyte esterase him a however due to patient' s unresponsiveness it was very difficult to get any symptoms. * We'll also get a CT abdominal and pelvis along with CT head. * CT abdominal and pelvis to rule out any other source of infection. * ct vanco, leighton for suspected HCAP Cardiology * Patient has history of systolic heart failure in 2011, last echo showed left ventricular ejection fraction of 35-40%, pulmonary hypertension as well up to 60 mmHg. * Patient had CABG in 2001 and AICD placement in 2007. * Echocardiogram awaited. * Cardiology consulted. * Pt has been on spironolactone, also received 1 g of calcium gluconate, insulin and dextrose for hyperkalemia. * Ct coumadin with regular INR checks. Hematology * white Count of 20.9, most likely secondary to sepsis with positive sepsis criteria however the source of sepsis not very clear. * CT abdomen awaited, patient currently on an concept as for community-acquired pneumonia. * Continue to follow white count. * Continue to follow hemoglobin and hematocrit. * Continue monitor vitals every hour. * If he spikes fever please we sent pancultures Metabolic. * Elevated pottasium 5.9. * Patient received 1 g of IV calcium gluconate along with insulin and dextrose. * Repeat BEP at 2 PM. * urine toxicology negative. * Bun and creatinine slightly elevated 1.5/51,baseline(1.1/37) * Ammonia pending. * continue to keep mg > 2.0 and K > 4 * will check phosphorus * continue to monitor i/o and daily icu bundle. Alimetary * NPO * swallow evalve pending. Nuerology * AMS * utox negative. * ammonia pending * Ct scan awaited. DNR/ DNI NPO Problem List: 1. Atrial fibrillation 2. Benign hypertension 3. Hypercapnic respiratory failure 4. Leukocytosis 5. Hyperkalemia 6. Morbid obesity Consult Acknowledgment - Thank you for your consult request. MARISELA PRESLEY,Reji ELIF 07/29/16 1250: Assessment/Plan Other Findings/Comments: I have personally seen and examined the patient, and agree with the resident's assessment and plan as detailed above. Briefly, the patient is a 70-year-old male with a past medical history which includes congestive heart failure with a reduced ejection fraction, pulmonary hypertension, CAD status post CABG in 2001, AICD in 2007, left hemispheric stroke in 2003 with residual aphasia and right- sided paralysis, the city, [place] with intolerance to CPAP, and ambulatory dysfunction noting the patient is wheelchair-bound. The patient was transferred from [facility] after being found with a significant change in mental status. The patient is normally awake and alert and able to feed himself. The patient has been progressively more obtunded. He lives in an ECF noting that his medications have been changed recently. He has had a decrease in his oxycodone and an increase in his gabapentin dose. The patient was sent to the emergency department for further evaluation. His white blood cell count was found to be 20,000 with no bands. His creatinine was slightly elevated up to 1.5. Potassium was 6.0. His INR is therapeutic at 2.69. Urinalysis showed 5-10 WBCs with a moderate amount of esterase. Chest x-ray showed mild cardiomegaly but no acute findings. A CT scan of the chest was done which demonstrated groundglass opacities bilaterally which are nonspecific. There were scattered filling defects within the bronchi, thought to be related to aspiration. An ABG showed a pH of 7.28, PCO2 50, PO2 137, and a bicarbonate of 23. The patient was placed on BiPAP, pancultured and started on vancomycin and ceftazidime. The patient is currently on BiPAP and minimally responsive despite improvement in his blood gas. Plan: * Check a U tox. * Give one dose of narcan to see if this helps with the patient's mental status. * Hold Percocet for now. * Hold gabapentin for now. * Continue vanco and ceftaz. * Follow up cultures. * Nebs/TRC. * Continue BiPAP at current settings. * Check a CT scan of the head and abdomen. * Check an ammonia level. * Nothing by mouth/check aspiration precautions. * Hyperkalemia management as per primary team. * Continue Coumadin for therapeutic INR. * Continue all supportive care. We will monitor the patient in the critical care unit. Thank you for the consult, please call with any issues or questions. Consult Acknowledgment - Thank you for your consult request.
[2016-07-29] MEDS ORDERED: PANTOPRAZOLE SO40 M1 PO (12:33)
[2016-07-29] MEDS ORDERED: METOLAZONE2.5 M1 PO (12:33)
[2016-07-29] MEDS ORDERED: DEEP SEA44 ML NASB (12:35)
[2016-07-29] MEDS ORDERED: AMLODIPINE BESYL5 M1 PO (12:36)
[2016-07-29] MEDS ORDERED: ALDACTONE25 MG PO (12:37)
[2016-07-29] MEDS ORDERED: PROZAC40 M1 PO (12:37)
[2016-07-29] MEDS ORDERED: MIRALAX17 G1 PO (12:38)
[2016-07-29] MEDS ORDERED: ASPIRIN EC81 M1 PO (12:38)
[2016-07-29] MEDS ORDERED: DOCUSATE SODIU100 M3 PO (12:38)
[2016-07-29] MEDS ORDERED: MULTI-DAY VITA1 EACH PO (12:40)
[2016-07-29] MEDS ORDERED: ALMACONE LIQUI355 ML PO (12:41)
[2016-07-29] MEDS ORDERED: ALLOPURINOL100 M1 PO (12:41)
[2016-07-29] MEDS ORDERED: POTASSIUM CHLO20 ME2 PO ×2 (12:42→12:47)
[2016-07-29] MEDS ORDERED: DILANTIN100 M1 PO (12:43)
[2016-07-29] MEDS ORDERED: LOPRESSOR50 M1 PO (12:43)
[2016-07-29] MEDS ORDERED: SENNA8.6 M3 PO (12:45)
[2016-07-29] MEDS ORDERED: LISINOPRIL30 M1 PO (12:46)
[2016-07-29] MEDS ORDERED: ZETIA10 M1 PO (12:46)
[2016-07-29] MEDS ORDERED: LANTUS SOL100 UNIT/1 SC (12:47)
[2016-07-29] MEDS ORDERED: LASIX40 M1 PO (12:49)
[2016-07-29] MEDS ORDERED: ATORVASTATIN CA20 M1 PO (12:49)
[2016-07-29] MEDS ORDERED: GABAPENTIN300 M2 PO (12:50)
[2016-07-29] MEDS ORDERED: GABAPENTIN600 M1 PO (12:50)
[2016-07-29] MEDS ORDERED: GUAIFENESIN400 MG PO (12:52)
[2016-07-29] MEDS ORDERED: COUMADIN2.5 M1 PO (12:52)
[2016-07-29] MEDS ORDERED: MAALOX ADVANCE355 M2 PO (12:54)
[2016-07-29] MEDS ORDERED: ACEPHEN650 M1 PR (12:55)
[2016-07-29] MEDS ORDERED: ACETAMINOPHEN325 M2 PO (13:00)
[2016-07-29] MEDS ORDERED: FLEET ENEMA133 ML RC (13:01)
[2016-07-29] MEDS ORDERED: MILK OF MA400 MG/52 PO (13:02)
[2016-07-29] MEDS ORDERED: IPRAT-ALBUT 0.5-3 ML INH (13:03)
[2016-07-29] MEDS ORDERED: TRAZODONE HCL50 M1 PO (13:03)
[2016-07-29] MEDS ORDERED: PERCOCET 5-3251 EACH PO (13:03)
[2016-07-29 14:00] VITALS: BP 118/64
[2016-07-29 16:00] VITALS: BP 120/50
--- NOTE | 2016-07-29 16:07 | Admission Certification ---
Admission Certification Certification Statement - As attending physician, I certify that at the time of - admission, based on clinical presentation, severity of - symptoms, need for further diagnostic testing and - therapeutic interventions, and risk of adverse outcomes - without in-hospital treatment, in my clinical assessment, - this patient requires an acute hospital stay for a minimum - of two nights or longer. I have also considered psychsocial - factors such as support system, advanced age, financial - issues, cognitive issues, and failed out-patient treatments, - past re-admission history, safety of patient, and lack of - compliance as applicable. Specific rationale supporting this admission is: Altered mental status
--- NOTE | 2016-07-29 17:53 | CT SCAN REPORT ---
EXAMINATION: CT HEAD WITHOUT CONTRAST CLINICAL INFORMATION: Altered mental status. History of CVA. COMPARISON: 06/01/2011 TECHNIQUE: Contiguous axial imaging was performed from the skull base to vertex without intravenous contrast. DLP: 672 mGy-cm. FINDINGS: There is no evidence of acute intracranial hemorrhage or territorial infarction. No abnormal mass effect or midline shift is seen. Chronic encephalomalacia of the left frontal, temporal, and parietal lobes from prior infarct, unchanged. Yañez to white matter differentiation is otherwise well preserved. No extra-axial fluid collections are identified. No hydrocephalus. Proportional prominence of the ventricles and sulcal spaces is consistent with mild volume loss. Scoliosis is seen throughout the left cerebral hemisphere, similar to previous. The osseous structures and soft tissues are normal. There is moderate opacification of the maxillary sinuses. The mastoid air cells and visualized portions of the paranasal sinuses are otherwise well aerated. IMPRESSION: No acute intracranial pathology. Chronic left cerebral encephalomalacia.
--- NOTE | 2016-07-29 18:12 | CT SCAN REPORT ---
EXAMINATION: CT ABDOMEN AND PELVIS WITHOUT CONTRAST CLINICAL INFORMATION: Leukocytosis, hypotension. COMPARISON: 05/17/2011 TECHNIQUE: Multidetector volumetric imaging was performed from the superior aspect of the liver through the pubic symphysis. Sagittal and coronal reformatted images were obtained on the technologist's workstation. DLP: 1598 mGy-cm FINDINGS: LUNG BASES: Bibasilar subsegmental atelectasis. The coronary artery calcifications. Partially visualized cardiac pacer leads. LIVER, GALLBLADDER, AND BILIARY TREE: The liver is normal in size, shape, and attenuation. No focal hepatic lesion or biliary ductal dilatation is present. The gallbladder is unremarkable with no evidence of radiopaque gallstones, gallbladder wall thickening, or obvious pericholecystic inflammatory changes. Small to moderate volume ascites. PANCREAS: Unremarkable. SPLEEN: Unremarkable. ADRENAL GLANDS: Unremarkable. KIDNEYS AND URETERS: The kidneys are normal in size, shape, and attenuation. No hydronephrosis, hydroureter, or calculi seen. No perinephric stranding. Exophytic hypoattenuating left lower pole 4.1 cm renal lesion measures slightly higher than simple fluid. This is unchanged and previously represented a cyst. Right upper pole exophytic renal cyst. BLADDER: Decompressed with a Esc[place] catheter in place. GASTROINTESTINAL TRACT: The stomach and small bowel are unremarkable. No dilated loops of bowel or evidence of obstruction. There is colonic diverticulosis without diverticulitis. No free air. ABDOMINAL WALL: Mild anasarca. Fluid within a small umbilical hernia. Dystrophic calcification seen in the left inguinal region. LYMPH NODES: Normal. VASCULAR: Diffuse atherosclerotic calcifications. PELVIC VISCERA: The prostate and seminal vesicles are unremarkable. OSSEOUS STRUCTURES: No acute or suspicious osseous abnormality. Degenerative changes of the spine. IMPRESSION: No acute findings. Small to moderate volume of ascites. This is a new finding from the prior study from 2011. Additional chronic findings as above.
[2016-07-30] VITALS: BP 118/60
[2016-07-30 02:06] LABS: ABSOLUTE BASOPHIL COUNT 0.1 /CUMM (0.0-0.2); ABSOLUTE EOSINOPHIL COUNT 0.2 /CUMM (0.0-0.7); ABSOLUTE GRANULOCYTE CT 10.9 /CUMM (1.4-6.5); ABSOLUTE LYMPH COUNT 1.2 /CUMM (1.2-3.4); ABSOLUTE MONOCYTE COUNT 0.9 /CUMM (0.10-0.60); BASOPHIL % 0.5 % (0.0-2.0); EOSINOPHIL % 1.6 % (0-5); GRANULOCYTE % 81.8 % (42.2-75.2); HEMATOCRIT 26.4 % (42-52); MEAN CORPUSCULAR HGB 25.4 PG (27.0-31.0); MEAN CORPUSCULAR HGB CONC 31.3 G/DL (33.0-37.0); MEAN CORPUSCULAR VOLUME 81.2 FL (80.0-94.0); MEAN PLATELET VOLUME 7.6 FL (7.4-10.4); PLATELET COUNT 242 /CUMM (130-400); RBC DISTRIBUTION WIDTH 17.8 % (11.5-14.5); RED BLOOD CELL CT 3.26 /CUMM (4.70-6.10); WHITE BLOOD CELL COUNT 13.3 /CUMM (4.8-10.8)
[2016-07-30 02:08] LABS: PT 32.6 SEC (9.4-12.5)
--- NOTE | 2016-07-30 07:06 | PN- Resident CRCU ---
Subjective HPI/CRCU Issues: Mr. Ng was seen and examined this morning. He is resting comfortably in bed. He reports no issues overnight. He did appear somewhat somnolent although was able to answer questions with additional effort. Patient states that his shortness of breath has improved, he is currently on BiPAP. He denies any fever, chills, nausea, vomiting. 24 Hour Events: NONE Objective Vital Signs & I&O Last 8 Hrs of Vitals and I&O: Temperature 97.0. Pulse 74. RR 28. BP: 118/60. Pulse ox 98% on 3.0L Exam General Appearance: well developed/nourished, no apparent distress, alert, lethargic Respiratory: no respiratory distress, rhonchi, wheezing, Increased Breath Sounds Cardiovascular: regular rate/rhythm Gastrointestinal: normal bowel sounds, soft, non-tender Extremities: normal inspection, normal capillary refill Cranial Nerves: normal hearing, normal speech Skin: intact, normal color Current Medications: Current Medications Sig/Phil Start time Last Medication Dose Route Stop Time Status Admin Acetaminophen 650 MG Q6P PRN 07/29 1100 AC 07/30 PO 0946 Albuterol Sulfate 3 ML Q4P PRN 07/29 2230 AC INH Allopurinol 200 MG DAILY 07/30 1000 AC 07/30 PO 0949 Ampicillin Sodium/ 1,500 MG Q6 07/30 1200 AC Sulbactam Sodium IV Sodium Chloride 100 ML Aspirin Buffered 81 MG DAILY 07/30 1000 AC 07/30 PO 0949 Atorvastatin Calcium 20 MG DAILY 07/30 1000 AC 07/30 PO 0949 Ceftazidime 0 .STK-MED ONE 07/29 1123 CAN .ROUTE Ceftazidime 1,000 MG Q12H 07/29 1100 DC 07/29 IV 2220 Docusate Sodium 100 MG BID 07/29 2200 AC 07/30 PO 0950 Ezetimibe 10 MG DAILY 07/30 1000 AC 07/30 PO 0949 Fluoxetine HCl 40 MG DAILY 07/30 1000 AC 07/30 PO 0949 Insulin Aspart 2 UNITS .STK-MED ONE 07/29 2222 DC SC 07/29 2223 Insulin Detemir 15 UNITS AT BEDTIME 07/29 2200 AC 07/29 SC 2226 Insulin Human Regular 6 UNITS .STK-MED ONE 07/30 0230 DC IV 07/30 0231 Insulin Human Regular 0 Q4 07/29 1400 AC 07/30 SC 0511 Magnesium Hydroxide 30 ML DAILY PRN 07/29 1315 AC PO Naloxone HCl 0.4 MG ONCE ONE 07/29 1630 DC 07/29 IV 07/29 1631 1626 Naloxone HCl 0.4 MG ONCE ONE 07/29 1315 DC 07/29 IV 07/29 1316 1324 Nystatin 1 ADITHYA BID PRN 07/29 1600 AC TOP Oxycodone/ 1 TAB Q6P PRN 07/29 1100 AC Acetaminophen PO Oxycodone/ 2 TAB Q6P PRN 07/29 1100 DC Acetaminophen PO Phenytoin 200 MG BID 07/29 2200 AC 07/30 PO 0950 Polyethylene Glycol 17 GM BID 07/29 2200 AC 07/29 PO 2220 Senna 187 MG DAILY 07/30 1000 AC 07/30 PO 0949 Sodium Chloride 500 ML BOLUS ONE 07/29 1615 DC 07/29 IV 07/29 1714 1623 Sodium Polystyrene 60 ML ONCE ONE 07/29 1600 DC 07/29 Sulfonate AK 07/29 1601 1819 Vancomycin HCl 1,500 MG DAILY 07/29 1100 DC 07/29 Sodium Chloride 250 ML IV 1147 Warfarin Sodium 2.5 MG COUMADIN 1700 ONE 07/29 1700 DC 07/29 PO 07/29 1701 1708 Impression/Plan Impression/Problem List Impression: Mr Ng is a 70-year-old gentleman with a PMH of HFrEF (LVEF 35-40% in 2011), pulmonary hypertension (60mmHG), CAD S/P CABG (2001), AICD (02/2008), 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 Respiratory Increased somnolence and lethargy likely related to community-acquired pneumonia and possible polypharmacy. Ceftazidime and vancomycin also been discontinued the patient is currently on IV Unasyn. Patient has been on a combination of BiPAP and Ventimask. Will attempt to reduce his on and off BiPAP and supplemental nasal cannula as needed. Curently Saturating well 98% on 3.0 L Will discontinue any medications with severe sedating properties. Percocet reduced to1 tab Q 6 Hours . Gabapentin has been discontinued. ID Sepsis criteria on admission WBC 20.9. Respiratory rate 24. 07/30/2016 WBC: 13.3 Cardiovascular AICD will be interrogated for any pathologic events. Repeat echocardiogram is pending to assess ventricular function. Hold all additional antihypertensives lisinopril, metolazone, Aldactone, amlodipine, Patient can be started on metoprolol if blood pressure tolerates. Once results from modified barium swallow return we can consider beginning addiotinal meds is condition tolerates. Hematology INR this am 3.14 We'll hold any additional anticoagulation until INR is below 3. Metabolic Cr: 1.4. Likely due to ASHA 2/2 due to dehydration. Patient was hyperkalemic on admission. Repeat potassium this morning is 5.0. Continue to monitor. Magnesium this a.m. 3.1. Alimentary Swallow evaluation obtained this morning recommended that the patient needed a modified barium Swallow for further recommendations on adequate nutritional supplementation. Once approved we can begin the patient on PO intake and medications. Neurology Mentating well. DVT ppx ALPS, holding coumadin, due to Supratherapetic INR Code DNR/DNI Problem List: 1. Morbid obesity 2. Obstructive sleep apnea syndrome 3. Paralytic stroke 4. Hyperkalemia 5. Leukocytosis 6. Hypercapnic respiratory failure Pain Ratin Pain Location: No Pain Tomorrow's Labs & Rationales: CBC: Monitor H/H ICU Bundle Plan DVT/Prophylaxis: mechanical
[2016-07-30 08:00] VITALS: BP 110/70
--- NOTE | 2016-07-30 08:47 | PN- CRCU ---
Subjective HPI/Critical Care Issues: The patient is much more awake and alert. He reports feeling improved and appears much more comfortable. He offers no specific complaints at present. He remains on BiPAP with 30% oxygen, with saturations in the high 90s. He has very good urine output. There were no overnight events reported. Objective Current Medications: Current Medications Sig/Phil Start time Last Medication Dose Route Stop Time Status Admin Acetaminophen 650 MG Q6P PRN 07/29 1100 AC PO Albuterol Sulfate 3 ML Q4P PRN 07/29 2230 AC INH Allopurinol 200 MG DAILY 07/30 1000 AC PO Aspirin Buffered 81 MG DAILY 07/30 1000 AC PO Atorvastatin Calcium 20 MG DAILY 07/30 1000 AC PO Calcium Gluconate 0 .STK-MED ONE 07/29 0922 DC IV Calcium Gluconate 1 GM ONCE ONE 07/29 0915 DC 07/29 Sodium Chloride 100 ML IV 07/29 1014 0934 Ceftazidime 0 .STK-MED ONE 07/29 1123 DC .ROUTE Ceftazidime 1,000 MG Q12H 07/29 1100 AC 07/29 IV 2220 Ceftriaxone Sodium 0 .STK-MED ONE 07/29 0922 DC .ROUTE Ceftriaxone Sodium 1,000 MG ONCE ONE 07/29 0915 DC 07/29 IV 07/29 0916 0934 Dextrose 0 .STK-MED ONE 07/29 1123 DC IV Dextrose 25 GM ONCE ONE 07/29 1100 DC 07/29 IV 07/29 1101 1147 Docusate Sodium 100 MG BID 07/29 2200 AC 07/29 PO 2221 Ezetimibe 10 MG DAILY 07/30 1000 AC PO Fluoxetine HCl 40 MG DAILY 07/30 1000 AC PO Insulin Aspart 2 UNITS .STK-MED ONE 07/29 2222 DC SC 07/29 2223 Insulin Detemir 15 UNITS AT BEDTIME 07/29 2200 AC 07/29 SC 2226 Insulin Human Regular 0 Q4 07/29 1400 AC 07/30 SC 0511 Insulin Human Regular 10 UNITS ONCE ONE 07/29 1100 DC 07/29 IV 07/29 1101 1147 Magnesium Hydroxide 30 ML DAILY PRN 07/29 1315 AC PO Naloxone HCl 0.4 MG ONCE ONE 07/29 1630 DC 07/29 IV 07/29 1631 1626 Naloxone HCl 0.4 MG ONCE ONE 07/29 1315 DC 07/29 IV 04/10 1316 1324 Nystatin 1 ADITHYA BID PRN 07/29 1600 AC TOP Oxycodone/ 1 TAB Q6P PRN 07/29 1100 AC Acetaminophen PO Oxycodone/ 2 TAB Q6P PRN 07/29 1100 AC Acetaminophen PO Phenytoin 200 MG BID 07/29 2200 AC 07/29 PO 2221 Polyethylene Glycol 17 GM BID 07/29 2200 AC 07/29 PO 2220 Senna 187 MG DAILY 07/30 1000 AC PO Sodium Chloride 500 ML BOLUS ONE 07/29 1615 DC 07/29 IV 07/29 1714 1623 Sodium Polystyrene 60 ML ONCE ONE 07/29 1600 DC 07/29 Sulfonate DE 07/29 1601 1819 Vancomycin HCl 1,500 MG DAILY 07/29 1100 AC 07/29 Sodium Chloride 250 ML IV 1147 Warfarin Sodium 2.5 MG COUMADIN 1700 ONE 07/29 1700 DC 07/29 PO 07/29 1701 1708 Vital Signs & I&O Last 24 Hrs of Vitals and I&O: Vital Signs Date Time Temp Pulse Resp B/P Pulse O2 O2 Flow FiO2 Ox Delivery Rate 07/30 812 98 Nasal 3.0L Cannula 07/30 0813 74 98 07/30 0540 69 98 07/30 0400 97 BIPAP 30% 07/30 0329 69 97 07/30 0051 69 97 07/30 0000 97.0 68 28 118/60 97 BIPAP 30% 07/30 0000 97 BIPAP 30% 07/29 2207 BIPAP 30% 07/29 2200 69 97 07/29 2000 98 Venti Mask 30% 07/29 1600 97 BIPAP 30% 07/29 1600 96.8 69 28 120/50 97 BIPAP 30% 07/29 1545 80 96 07/29 1411 74 98 07/29 1400 97.1 78 28 118/64 97 BIPAP 30% 07/29 1400 97 BIPAP 30% 07/29 1347 69 24 112/54 99 BIPAP 30% 07/29 1243 69 18 109/55 99 Room Air Room Air 07/29 1226 76 24 105/54 99 BIPAP 30% 07/29 1210 64 97 07/29 1207 69 24 102/51 99 BIPAP 30% 07/29 1142 69 24 102/56 96 BIPAP 30% 07/29 1058 98.0 69 2 100/53 BIPAP 04/10 1033 97.1 68 24 108/55 98 BIPAP 30% 07/29 1026 98 07/29 0937 64 20 106/55 99 Nasal 3.0L Cannula 07/29 0925 97.9 74 20 110/56 Intake & Output 07/30 1600 07/30 0800 07/30 0000 Intake Total 0 1000 Output Total 260 400 Balance -260 600 Intake, IV 520 Intake, Oral 0 480 Number 0 0 Bowel Movements Output, Urine 260 400 Physical Exam General Appearance: awake, comfortable, following commands Head: atraumatic, normal appearance Ears, Nose, Throat: normal pharynx Neck: normal inspection, supple Respiratory: normal breath sounds, chest non-tender, no respiratory distress Cardiovascular: regular rate/rhythm Gastrointestinal: normal bowel sounds, soft, non-tender Results Last 24 Hrs of Lab Results: Laboratory Tests 07/30/16 0130: Plasma Potassium 5.0 H, Troponin I < 0.01 07/30/16 0130: Anion Gap 10, Estimated GFR 50 L, BUN/Creatinine Ratio 37.1 H, Phosphorus 4.8 H, Magnesium 3.1 H, Total Bilirubin 0.5, Direct Bilirubin 0.5 H, AST 17, ALT 30, Alkaline Phosphatase 119, Total Protein 5.7 L, Albumin 2.9 L, PT 32.6 H, INR 3.14 H, CBC w Diff NO MAN DIFF REQ, RBC 3.26 L, MCV 81.2, MCH 25.4 L, RDW 17.8 H, MPV 7.6, Gran % 81.8 H, Lymphocytes % 9.1 L, Monocytes % 7.0, Eosinophils % 1.6, Basophils % 0.5, Absolute Granulocytes 10.9 H, Absolute Lymphocytes 1.2, Absolute Monocytes 0.9 H, Absolute Eosinophils 0.2, Absolute Basophils 0.1, PUBS MCHC 31.3 L 07/29/160: pH 7.32 L, pCO2 45, pO2 106 H, HCO3 23, ABG O2 Sat (Measured) 97.0, P-50 (Temp Corrected) N, Carboxyhemoglobin 0.8 L, O2 Concentration % 30%, Temperature 98.0 , O2 Delivery Method V/M, Phlebotomy Draw Site LEFT RADIAL 07/29/161954: Troponin I < 0.01 07/29/16 1650: pH 7.37, pCO2 33 L, pO2 88, HCO3 19 L, ABG O2 Sat (Measured) 95.0 L, P-50 ( Temp Corrected) N, Carboxyhemoglobin 2.0, O2 Concentration % 30%, Temperature 97.0, Respiration Rate 28, O2 Delivery Method FFM, Vent Mode ST, Expiratory Pressure 6, Inspiratory Pressure 18, Phlebotomy Draw Site LEFT [facility] 07/29/16 1432: Anion Gap 9, Estimated GFR 50 L, BUN/Creatinine Ratio 37.9 H, Phosphorus 4.9 H 07/29/16 1432: Ammonia 27 07/29/16 1208: Lactic Acid 1.1 07/29/16 1155: pH 7.30 *L, pCO2 48 H, pO2 90, HCO3 23, ABG O2 Sat (Measured) 95.0 L, P-50 ( Temp Corrected) N, Carboxyhemoglobin 1.4 L, O2 Concentration % 30, Temperature 98.0, Respiration Rate 24, O2 Delivery Method BIPAP, Vent Mode ST, Expiratory Pressure 6, Inspiratory Pressure 18, Phlebotomy Draw Site LEFT [facility] 07/29/16 0940: pH 7.28 *L, pCO2 50 H, pO2 137 H, HCO3 23, ABG O2 Sat (Measured) 97.0, P-50 ( Temp Corrected) N, Carboxyhemoglobin 1.3 L, O2 Concentration % 3L, Temperature 97.9, O2 Delivery Method N/C, Phlebotomy Draw Site LEFT [facility] 07/29/16 0923: Plasma Potassium 5.9 H 07/29/16 0911: Lactic Acid 0.[address] Scan Findings: CT head: No acute intracranial pathology. Chronic left cerebral encephalomalacia. CT abdomen: No acute findings. Small to moderate volume of ascites. This is a new finding from the prior study from 2011. Additional chronic findings as above. Impression/Plan Impression/Plan Impression/Plan: 1. Acute hypercarbic respiratory failure, improved on BiPAP. 2. Rule out aspiration pneumonia. 3. Change in mental status/unresponsiveness likely related to medications, now improved. 4. Anemia without evidence of bleeding, likely dilutional. 5. Hyperkalemia, improved. 6. History of systolic heart failure and pulmonary hypertension, now with increased ascites on CT of the abdomen. 7. History of left hemispheric stroke in 2004 with residual aphasia and right- sided paralysis, wheelchair-bound. 8. History of diabetes. 9. Obstructive sleep apnea with CPAP intolerance. 10. CAD status post CABG in 2001, AICD implantation in 2008. 11. Chronic kidney disease. Recommendations: * Give breaks off BiPAP as tolerated. * Follow up culture results. * Changed to Unasyn and discontinue Vigamox and and ceftazidime. * Monitor INR which is currently supratherapeutic. * Continue nebs/TRC. * Check a swallowing evaluation. * Advance diet as tolerated. * Cardiology consult and echocardiogram requested. * Continue bowel regimen for chronic constipation. * Continue Levemir and sliding scale insulin. * Continue all supportive care.
--- NOTE | 2016-07-30 09:06 | Cons- Cardiology ---
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 According to the chart the patient's stated that he was more lethargic which was initially felt to be secondary to oxycodone. That was decreased his symptoms persisted. A chest x-ray and urinalysis in the intermediate were reportedly unremarkable. The cardiac standpoint there is no reports of chest pain or shortness of breath noted. Due to increasing fatigue and weakness he was working emergency room for evaluation where he is found to be borderline hypotensive, hypoxic and lethargic. The patient was placed on BiPAP along with antibiotics for presumed pneumonia and admitted to the ICU. Allergies/Medications Allergies: Coded Allergies: nickel (UNKNOWN 07/10/15) Home Med List: Acetaminophen (Acephen) 650 MG SUPP.RECT 1 SUPP AK Q4H PRN PAIN/TEMP>/100 ( Reported) Acetaminophen 325 MG TABLET 2 TAB PO Q4H PRN PAIN/TEMP>/100 (Reported) Allopurinol 100 MG TABLET 2 TAB PO DAILY GOUT (Reported) Amlodipine Besylate 5 MG TABLET 7.5 MG PO DAILY HEART/BP (Reported) Aspirin (Ecotrin*) 81 MG TABLET.DR 1 TAB PO DAILY HEART/BLOOD (Reported) Atorvastatin Calcium 20 MG TABLET 1 TAB PO DAILY CHOLESTEROL (Reported) Docusate Sodium 100 MG CAPSULE 1 CAP PO BID STOOL SOFTENER (Reported) Ezetimibe (Zetia) 10 MG TABLET 1 TAB PO DAILY CHOLESTEROL (Reported) Fluoxetine HCl (Prozac) 40 MG CAPSULE 1 CAP PO DAILY MENTAL HEALTH (Reported) Furosemide (Lasix) 40 MG TABLET 1 TAB PO DAILY DIURETIC (Reported) Gabapentin 300 MG CAPSULE 1 CAP PO BID UNKNOWN (Reported) Gabapentin 600 MG TABLET 1 TAB PO 1600 UNKNOWN (Reported) Guaifenesin 400 MG TABLET 1 TAB PO BID MUCUS (Reported) Insulin Glargine,Hum.rec.anlog (Lantus Solostar) 100 UNIT/ML (3 ML) INSULN.PEN 15 UNITS SC QHS DM (Reported) Ipratropium/Albuterol Sulfate (Iprat-Albut 0.5-3(2.5) MG/3 Ml) 0.5 MG-3 MG (2.5 MG BASE)/3 ML AMPUL.NEB 1 UNIT INH Q4H PRN SOB/WHEEZING/RESP.DISTRESS ( Reported) Lisinopril 30 MG TABLET 60 MG PO DAILY BP (Reported) Mag Hydrox/Al Hydrox/Simeth (Almacone Liquid) (Unknown Strength) ORAL.SUSP 30 ML PO DAILY GI (Reported) Mag Hydrox/Al Hydrox/Simeth (Maalox Advanced Suspension) 200 MG-200 MG-20 MG/5 ML ORAL.SUSP 30 ML PO Q4H PRN GASTRITIS (Reported) Magnesium Hydroxide (Milk Of Magnesia) 400 MG/5 ML ORAL.SUSP 30 ML PO DAILY PRN CONSTIPATION (Reported) Metolazone 2.5 MG TABLET 1 TAB PO Friday UNKNOWN (Reported) Metoprolol Tartrate (Lopressor) 50 MG TABLET 1 TAB PO BID HEART/BP (Reported) Multivitamin (Multi-Day Vitamins) 1 EACH TABLET 1 TAB PO DAILY SUPPLEMENT ( Reported) Na Phos,M-B/Na Phos,Di-Ba (Fleet Enema) 19 GRAM-7 GRAM/118 ML ENEMA 1 E RC DAILY PRN CONSTIPATION (Reported) Oxycodone HCl/Acetaminophen (Percocet 5-325 MG Tablet) 5 MG-325 MG TABLET 1 TAB PO Q8H PRN PAIN (Reported) Pantoprazole Sodium 40 MG TABLET.DR 1 TAB PO DAILY GI (Reported) Phenytoin (Dilantin) 100 MG CAPSULE 2 CAP PO BID SEIZURES (Reported) Polyethylene Glycol 3350 (Miralax) 17 GRAM POWD.PACK 1 PAC PO BID GI ( Reported) dissolve in water Potassium Chloride 20 MEQ TAB.ER.PRT 2 TAB PO 0800 SUPPLEMENT (Reported) Potassium Chloride 20 MEQ TAB.ER.PRT 1 TAB PO 1800 SUPPLEMENT (Reported) Sennosides (Senna) 8.6 MG TABLET 2 TAB PO DAILY GI (Reported) Sodium Chloride (Deep Sea) 0.65 % SPRAY 2 SPRAY NASB TID NASAL CONGESTION ( Reported) Spironolactone (Aldactone) 25 MG TABLET 1 TAB PO DAILY DIURETIC/BP (Reported) Trazodone HCl 50 MG TABLET 25 MG PO PRN INSOMNIA (Reported) Warfarin Sodium (Coumadin) 2.5 MG TABLET 1 TAB PO DAILY BLOOD THINNER ( Reported) Current Medications: Current Medications Sig/Phil Start time Last Medication Dose Route Stop Time Status Admin Acetaminophen 650 MG Q6P PRN 07/29 1100 AC PO Albuterol Sulfate 3 ML Q4P PRN 07/29 2230 AC INH Allopurinol 200 MG DAILY 07/30 1000 AC PO Aspirin Buffered 81 MG DAILY 07/30 1000 AC PO Atorvastatin Calcium 20 MG DAILY 07/30 1000 AC PO Calcium Gluconate 0 .STK-MED ONE 07/29 0922 DC IV Calcium Gluconate 1 GM ONCE ONE 07/29 0915 DC 07/29 Sodium Chloride 100 ML IV 07/29 1014 0934 Ceftazidime 0 .STK-MED ONE 07/29 1123 DC .ROUTE Ceftazidime 1,000 MG Q12H 07/29 1100 AC 07/29 IV 2220 Ceftriaxone Sodium 0 .STK-MED ONE 07/29 0922 DC .ROUTE Ceftriaxone Sodium 1,000 MG ONCE ONE 07/29 0915 DC 07/29 IV 07/29 0916 0934 Dextrose 0 .STK-MED ONE 07/29 1123 DC IV Dextrose 25 GM ONCE ONE 07/29 1100 DC 07/29 IV 07/29 1101 1147 Docusate Sodium 100 MG BID 07/29 2200 AC 07/29 PO 2221 Ezetimibe 10 MG DAILY 07/30 1000 AC PO Fluoxetine HCl 40 MG DAILY 07/30 1000 AC PO Insulin Aspart 2 UNITS .STK-MED ONE 07/29 2222 DC AL 07/29 2223 Insulin Detemir 15 UNITS AT BEDTIME 07/29 2200 AC 07/29 SC 2226 Insulin Human Regular 0 Q4 07/29 1400 AC 07/30 SC 0511 Insulin Human Regular 10 UNITS ONCE ONE 07/29 1100 DC 07/29 IV 07/29 1101 1147 Magnesium Hydroxide 30 ML DAILY PRN 07/29 1315 AC PO Naloxone HCl 0.4 MG ONCE ONE 07/29 1630 DC 07/29 IV 07/29 1631 1626 Naloxone HCl 0.4 MG ONCE ONE 07/29 1315 DC 07/29 IV 07/29 1316 1324 Nystatin 1 ADITHYA BID PRN 07/29 1600 AC TOP Oxycodone/ 1 TAB Q6P PRN 07/29 1100 AC Acetaminophen PO Oxycodone/ 2 TAB Q6P PRN 07/29 1100 AC Acetaminophen PO Phenytoin 200 MG BID 07/29 2200 AC 07/29 PO 2221 Polyethylene Glycol 17 GM BID 07/29 2200 AC 07/29 PO 2220 Senna 187 MG DAILY 07/30 1000 AC PO Sodium Chloride 500 ML BOLUS ONE 07/29 1615 DC 07/29 IV 07/29 1714 1623 Sodium Polystyrene 60 ML ONCE ONE 07/29 1600 DC 07/29 Sulfonate AK 07/29 1601 1819 Vancomycin HCl 1,500 MG DAILY 07/29 1100 AC 07/29 Sodium Chloride 250 ML IV 1147 Warfarin Sodium 2.5 MG COUMADIN 1700 ONE 07/29 1700 DC 07/29 PO 07/29 1701 1708 Review of Systems Review of Systems: Unobtainable Past History Travel History Traveled to [place] past 21 day No Medical History Neurological: CVA (with aphashia), seizure EENT: NONE Cardiovascular: AFIB, CAD (W/ STENTS), hypertension, PACEMAKER Respiratory: obstructive sleep apnea, pulmonary hypertension Gastrointestinal: constipation, hiatal hernia Hepatic: NONE Renal: chronic kidney disease Musculoskeletal: NONE Psychiatric: chronic pain disorder Endocrine: diabetes Blood Disorders: NONE Cancer(s): NONE CASH APPLICATIONS SPECIALIST/Reproductive: NONE Surgical History Surgical History: CABG, HERNIA Psychosocial History Where Do You Live? Group Home Facility Services at Home: None Smoking Status: Never Smoked Functional Ability ADLs Needs Assist: dressing, eating, toileting, bathing. Ambulation: wheelchair Exam & Diagnostic Data Vital Signs and I&O Vital Signs Date Time Temp Pulse Resp B/P Pulse O2 O2 Flow FiO2 Ox Delivery Rate 07/30 812 98 Nasal 3.0L Cannula 07/30 0813 74 98 07/30 0540 69 98 07/30 0400 97 BIPAP 30% 07/30 0329 69 97 07/30 0051 69 97 07/30 0000 97.0 68 28 118/60 97 BIPAP 30% 07/30 0000 97 BIPAP 30% 07/29 2207 BIPAP 30% 07/29 2200 69 97 07/29 2000 98 Venti Mask 30% 07/29 1600 97 BIPAP 30% 07/29 1600 96.8 69 28 120/50 97 BIPAP 30% 07/29 1545 80 96 07/29 1411 74 98 07/29 1400 97.1 78 28 118/64 97 BIPAP 30% 07/29 1400 97 BIPAP 30% 07/29 1347 69 24 112/54 99 BIPAP 30% 07/29 1243 69 18 109/55 99 Room Air Room Air 07/29 1226 76 24 105/54 99 BIPAP 30% 07/29 1210 64 97 07/29 1207 69 24 102/51 99 BIPAP 30% 07/29 1142 69 24 102/56 96 BIPAP 30% 07/29 1058 98.0 69 2 100/53 BIPAP 07/29 1033 97.1 68 24 108/55 98 BIPAP 30% 07/29 1026 98 07/29 0937 64 20 106/55 99 Nasal 3.0L Cannula 07/29 0925 97.9 74 20 110/56 Intake & Output 07/30 1600 07/30 0800 07/30 0000 07/29 1600 07/29 0800 07/29 0000 Intake Total 0 1000 250 Output Total 260 400 300 Balance -260 600 -50 Intake, IV 520 250 Intake, Oral 0 480 0 Number 0 0 Bowel Movements Output, Urine 260 400 300 Patient 259 lb 255 lb Weight Physical Exam: Patient is a well-developed well-nourished male appearing in no acute distress HEENT is unremarkable Neck is supple there is no JVD Lungs diffuse wheezes and rhonchi bilaterally Heart regular rhythm S1 and S2 are normal no murmurs gallops or rubs Abdomen bowel sounds positive distended with ascites Extremities without edema Skin without erythema Neuro patient is a phasic Labs/Emil Results: Laboratory Tests 07/30 07/30 07/29 0130 0130 2120 Blood Gas pH (7.35 - 7.45 PH) 7.32 L pCO2 (35 - 45 TORR) 45 pO2 (80 - 100 TORR) 106 H HCO3 (21 - 28 MEQ/L) 23 ABG O2 Sat (Measured) (>96.0 %) 97.0 P-50 (Temp Corrected) N Carboxyhemoglobin (1.5 - 5.0 %) 0.8 L O2 Concentration % 30% Temperature (97.0 - 100.0 FARH) 98.0 O2 Delivery Method V/M Chemistry Sodium (137 - 145 mmol/L) 141 Potassium (3.5 - 5.1 mmol/L) 5.2 H Plasma Potassium (3.4 - 4.4 MMOL/L) 5.0 H Chloride (98 - 107 mmol/L) 108 H Carbon Dioxide (22 - 30 mmol/L) 23 Anion Gap (5 - 16) 10 BUN (9 - 20 mg/dL) 52 H Creatinine (0.7 - 1.2 mg/dL) 1.4 H Estimated GFR (>60 ml/min) 50 L BUN/Creatinine Ratio (7 - 25 %) 37.1 H Phosphorus (2.5 - 4.5 mg/dL) 4.8 H Magnesium (1.6 - 2.3 mg/dL) 3.1 H Total Bilirubin (0.2 - 1.3 mg/dL) 0.5 Direct Bilirubin (< 0.4 mg/dL) 0.5 H AST (17 - 59 U/L) 17 ALT (21 - 72 U/L) 30 Alkaline Phosphatase (< 127 U/L) 119 Troponin I (<0.11 ng/ml) < 0.01 Total Protein (6.3 - 8.2 g/dL) 5.7 L Albumin (3.5 - 5.0 g/dL) 2.9 L Coagulation PT (9.4 - 12.5 SEC) 32.6 H INR (0.90 - 1.17) 3.14 H Hematology CBC w Diff NO MAN DIFF REQ WBC (4.8 - 10.8 /CUMM) 13.3 H RBC (4.70 - 6.10 /CUMM) 3.26 L Hgb (14.0 - 18.0 G/DL) 8.3 L Hct (42 - 52 %) 26.4 L MCV (80.0 - 94.0 FL) 81.2 MCH (27.0 - 31.0 PG) 25.4 L RDW (11.5 - 14.5 %) 17.8 H Plt Count (130 - 400 /CUMM) 242 MPV (7.4 - 10.4 FL) 7.6 Gran % (42.2 - 75.2 %) 81.8 H Lymphocytes % (20.5 - 51.1 %) 9.1 L Monocytes % (1.7 - 9.3 %) 7.0 Eosinophils % (0 - 5 %) 1.6 Basophils % (0.0 - 2.0 %) 0.5 Absolute Granulocytes (1.4 - 6.5 /CUMM) 10.9 H Absolute Lymphocytes (1.2 - 3.4 /CUMM) 1.2 Absolute Monocytes (0.10 - 0.60 /CUMM) 0.9 H Absolute Eosinophils (0.0 - 0.7 /CUMM) 0.2 Absolute Basophils (0.0 - 0.2 /CUMM) 0.1 PUBS MCHC (33.0 - 37.0 G/DL) 31.3 L Miscellaneous Phlebotomy Draw Site LEFT RADIAL 07/29 07/29 07/29 07/29 07/29 195 1650 1432 1432 1208 Blood Gas pH (7.35 - 7.45 PH) 7.37 pCO2 (35 - 45 TORR) 33 L pO2 (80 - 100 TORR) 88 HCO3 (21 - 28 MEQ/L) 19 L ABG O2 Sat (Measured) (>96.0 %) 95.0 L P-50 (Temp Corrected) N Carboxyhemoglobin (1.5 - 5.0 %) 2.0 O2 Concentration % 30% Temperature (97.0 - 100.0 FARH) 97.0 Respiration Rate (BPM) 28 O2 Delivery Method FFM Vent Mode ST Expiratory Pressure (CM H2O P) 6 Inspiratory Pressure (CM H2O P) 18 Chemistry Sodium (137 - 145 mmol/L) 139 Potassium (3.5 - 5.1 mmol/L) 5.5 H Chloride (98 - 107 mmol/L) 105 Carbon Dioxide (22 - 30 mmol/L) 24 Anion Gap (5 - 16) 9 BUN (9 - 20 mg/dL) 53 H Creatinine (0.7 - 1.2 mg/dL) 1.4 H Estimated GFR (>60 ml/min) 50 L BUN/Creatinine Ratio (7 - 25 %) 37.9 H Lactic Acid (0.7 - 2.1 mmol/L) 1.1 Phosphorus (2.5 - 4.5 mg/dL) 4.9 H Ammonia (9 - 30 umol/L) 27 Troponin I (<0.11 ng/ml) < 0.01 Miscellaneous Phlebotomy Draw Site LEFT RADIAL 07/29 07/29 07/29 07/29 1155 0940 0928 0911 Blood Gas pH (7.35 - 7.45 PH) 7.30 *L 7.28 *L pCO2 (35 - 45 TORR) 48 H 50 H pO2 (80 - 100 TORR) 90 137 H HCO3 (21 - 28 MEQ/L) 23 23 ABG O2 Sat (Measured) (>96.0 %) 95.0 L 97.0 P-50 (Temp Corrected) N N Carboxyhemoglobin (1.5 - 5.0 %) 1.4 L 1.3 L O2 Concentration % 30 3L Temperature (97.0 - 100.0 FARH) 98.0 97.9 Respiration Rate (BPM) 24 O2 Delivery Method BIPAP N/C Vent Mode ST Expiratory Pressure (CM H2O P) 6 Inspiratory Pressure (CM H2O P) 18 Chemistry Plasma Potassium (3.4 - 4.4 MMOL/L) 5.9 H Lactic Acid (0.7 - 2.1 mmol/L) 0.7 Miscellaneous Phlebotomy Draw Site LEFT RADIAL LEFT RADIAL 07/29 07/29 0828 0825 Toxicology Urine Opiates Screen (>2000 NG/ML) < 100.00 Methadone Screen (>300 NG/ML) < 40 Barbiturate Screen (>200 NG/ML) 108 Ur Phencyclidine Scrn (>25 NG/ML) < 6.00 Amphetamines Screen (>1000 NG/ML) < 100 U Benzodiazepines Scrn (>200 NG/ML) < 85 Urine Cocaine Screen (>300 NG/ML) < 50 Urine Cannabis Screen (>50 NG/ML) < 5.00 Urines Urinalysis LIGHT H Urine Color (YEL,AMB,STR) YEL Urine Clarity (CLEAR) HAZY H Urine pH (5.0 - 8.0) 6.0 Ur Specific [place] (1.001 - 1.035) 1.020 Urine Protein (NEG,<30 MG/DL) 30 H Urine Ketones (NEG) NEG Urine Nitrite (NEG) NEG Urine Bilirubin (NEG) NEG Urine Urobilinogen (0.1 - 1.0 EU/dl) 0.2 Ur Leukocyte Esterase (NEG) MOD H Ur Microscopic SEDIMENT EXAMINED Urine RBC (0 - 5 /HPF) 1-3 Urine WBC (0 - 2 /HPF) 5-10 H Ur Epithelial Cells (NONE,FEW) FEW Urine Bacteria (NEG/NONE) FEW H Hyaline Casts (0/LPF) 1-3 H Urine Hemoglobin (NEG) TRACE-INTACT H Urine Glucose (N MG/DL) NEG 07/29 0800 Chemistry Sodium (137 - 145 mmol/L) 139 Potassium (3.5 - 5.1 mmol/L) 6.0 *H Chloride (98 - 107 mmol/L) 104 Carbon Dioxide (22 - 30 mmol/L) 24 Anion Gap (5 - 16) 10 BUN (9 - 20 mg/dL) 51 H Creatinine (0.7 - 1.2 mg/dL) 1.5 H Estimated GFR (>60 ml/min) 46 L BUN/Creatinine Ratio (7 - 25 %) 34.0 H Glucose (65 - 99 mg/dL) 144 H Calcium (8.4 - 10.2 mg/dL) 8.5 Magnesium (1.6 - 2.3 mg/dL) 3.2 H Total Bilirubin (0.2 - 1.3 mg/dL) 0.6 AST (17 - 59 U/L) 22 ALT (21 - 72 U/L) 32 Alkaline Phosphatase (< 127 U/L) 135 H Creatine Kinase (55 - 170 U/L) < 20 L Troponin I (<0.11 ng/ml) 0.02 [id number] Pept (<125 pg/mL) 6230 H Total Protein (6.3 - 8.2 g/dL) 6.3 Albumin (3.5 - 5.0 g/dL) 3.3 L Globulin (1.9 - 4.2 gm/dL) 3.0 Albumin/Globulin Ratio (1.1 - 2.2 %) 1.1 TSH (0.270 - 4.200 uIU/mL) 1.390 Coagulation PT (9.4 - 12.5 SEC) 28.0 H INR (0.90 - 1.17) 2.69 H APTT (25 - 37 SEC) 37 Hematology CBC w Diff MAN DIFF ORDERED WBC (4.8 - 10.8 /CUMM) 20.9 H RBC (4.70 - 6.10 /CUMM) 3.77 L Hgb (14.0 - 18.0 G/DL) 9.6 L Hct (42 - 52 %) 30.4 L MCV (80.0 - 94.0 FL) 80.8 MCH (27.0 - 31.0 PG) 25.5 L RDW (11.5 - 14.5 %) 18.0 H Plt Count (130 - 400 /CUMM) 282 MPV (7.4 - 10.4 FL) 7.5 Gran % (42.2 - 75.2 %) 83.0 H Lymphocytes % (20.5 - 51.1 %) 9.8 L Monocytes % (1.7 - 9.3 %) 5.7 Eosinophils % (0 - 5 %) 0.6 Basophils % (0.0 - 2.0 %) 0.9 Absolute Granulocytes (1.4 - 6.5 /CUMM) 17.3 H Absolute Lymphocytes (1.2 - 3.4 /CUMM) 2.0 Absolute Monocytes (0.10 - 0.60 /CUMM) 1.2 H Absolute Eosinophils (0.0 - 0.7 /CUMM) 0.1 Absolute Basophils (0.0 - 0.2 /CUMM) 0.2 Platelet Estimate (ADEQUATE) ADEQUATE Polychromasia 1+ Hypochromic-Microcytic 1+ Anisocytosis 1+ PUBS MCHC (33.0 - 37.0 G/DL) 31.6 L Toxicology Phenytoin (10.0 - 20.0 ug/mL) 10.0 Diagnostic Data EKG Results Ventricular paced rhythm CXR Results IMPRESSION: Mild cardiomegaly and surgical changes from remote coronary artery bypass grafting. No acute cardiopulmonary findings compared to 11/20/2012. Other Results CT of the chest IMPRESSION: Groundglass opacities bilaterally are nonspecific. These may be infectious or inflammatory in etiology. Hypersensitivity reaction is possible. No septal thickening seen to suggest edema. Scattered filling defects within the bronchi could be associated with aspiration. Assessment/Plan Assessment/Plan 1. Coronary artery disease status post coronary bypass surgery 2. Ischemic cardiomyopathy ejection fraction 30% status post AICD 3. Persistent atrial fibrillation on Coumadin 4. CVA by history with a aphasia and motor weakness wheelchair bound 5. Diabetes 6. Obstructive sleep apnea on CPAP 7. Hypertension now with borderline hypotension most likely secondary to pneumonia and sepsis 8. Lethargy most likely secondary to community-acquired pneumonia with fever and elevated white count versus medication related 9. Ascites noted on CT the abdomen most likely secondary to right-sided heart failure 10. Acute on chronic Renal insufficiency 11. Anemia possibly dilutional Recommendations 1. Continue antibiotics 2. Hold Coumadin secondary to supratherapeutic INR 3. Repeat echocardiogram is pending to reassess LV function 4. Due to borderline hypotension on admission and renal insufficiency would hold diuresis at present despite elevated BNP 5. Would resume outpatient metoprolol as blood pressure tolerates. Continue to hold amlodipine, lisinopril, metolazone, and Aldactone. 6. Continue to monitor renal function and potassium 7. Will have his AICD interrogated Thank you for allowing [facility] to participate in the care of your patient. Consult Acknowledgment - Thank you for your consult request.
--- NOTE | 2016-07-30 09:22 | PN- Att Addend ---
Attending Addendum Attending Brief Note Patient is awake and alert General Appearance: Alert, No Acute Distress Skin: Grossly normal HEENT: PEERLA Neck: Supple, No JVD Cardiovascular: Regular Rate, Normal S1, Normal S2, No Murmurs Lungs: Decreased air entry Abdomen: Soft non tender abdomen, normal bowel sounds Neurological: Normal Speech, Strength at 5/5 X4 Ext, Cranial Nerves 3-12 NL, Reflexes 2+ Extremities: No Clubbing, No Cyanosis, No Edema Vascular: Normal Pulses Assessment Hypercarbic respiratory failure improved on BiPAP. Patient appears about his baseline. We will transition antibiotics to IV Unasyn. Also get a swallow evaluation. He appears stable from cardiac viewpoint. Ascites likely secondary to low albumin levels. Will get anemia workup. Plan Change antibiotic to IV Unasyn BiPAP when necessary Swallow evaluation Guaiac stools Check iron studies Out of bed to chair Decrease Percocet to 1 tab every 6 hour when necessary pain Discontinue Neurontin DNI/DNR Current Medications Sig/Phil Start time Last Medication Dose Route Stop Time Status Admin Acetaminophen 650 MG Q6P PRN 07/29 1100 AC PO Albuterol Sulfate 3 ML Q4P PRN 07/29 223 AC INH Allopurinol 200 MG DAILY 07/30 1000 AC PO Aspirin Buffered 81 MG DAILY 07/30 1000 AC PO Atorvastatin Calcium 20 MG DAILY 07/30 1000 AC PO Calcium Gluconate 0 .STK-MED ONE 07/29 921 DC IV Calcium Gluconate 1 GM ONCE ONE 07/29 0915 DC 07/29 Sodium Chloride 100 ML IV 07/29 1014 0934 Ceftazidime 0 .STK-MED ONE 07/29 1123 DC .ROUTE Ceftazidime 1,000 MG Q12H 07/29 1100 AC 07/29 IV 2220 Ceftriaxone Sodium 0 .STK-MED ONE 07/29 0922 DC .ROUTE Dextrose 0 .STK-MED ONE 07/29 1123 DC IV Dextrose 25 GM ONCE ONE 07/29 1100 DC 07/29 IV 07/29 1101 1147 Docusate Sodium 100 MG BID 07/29 2199 AC 07/29 PO 2221 Ezetimibe 10 MG DAILY 07/30 1000 AC PO Fluoxetine HCl 40 MG DAILY 07/30 1000 AC PO Insulin Aspart 2 UNITS .STK-MED ONE 07/29 222 DC SC 07/29 222 Insulin Detemir 15 UNITS AT BEDTIME 07/29 2200 AC 07/29 SC 2226 Insulin Human Regular 0 Q4 07/29 1400 AC 07/30 SC 0511 Insulin Human Regular 10 UNITS ONCE ONE 07/29 1100 DC 07/29 IV 07/29 1101 1147 Magnesium Hydroxide 30 ML DAILY PRN 07/29 1315 AC PO Naloxone HCl 0.4 MG ONCE ONE 07/29 1630 DC 07/29 IV 07/29 1631 1626 Naloxone HCl 0.4 MG ONCE ONE 07/29 1315 DC 07/29 IV 07/29 1316 1324 Nystatin 1 ADITHYA BID PRN 07/29 1600 AC TOP Oxycodone/ 1 TAB Q6P PRN 07/29 1100 AC Acetaminophen PO Oxycodone/ 2 TAB Q6P PRN 07/29 1100 AC Acetaminophen PO Phenytoin 200 MG BID 07/29 2200 AC 07/29 PO 2221 Polyethylene Glycol 17 GM BID 07/29 2200 AC 07/29 PO 2220 Senna 187 MG DAILY 07/30 1000 AC PO Sodium Chloride 500 ML BOLUS ONE 07/29 1615 DC 07/29 IV 07/29 1714 1623 Sodium Polystyrene 60 ML ONCE ONE 07/29 1600 DC 07/29 Sulfonate TX 07/29 1601 1819 Vancomycin HCl 1,500 MG DAILY 07/29 1100 AC 07/29 Sodium Chloride 250 ML IV 1147 Warfarin Sodium 2.5 MG COUMADIN 1700 ONE 07/29 1700 DC 07/29 PO 07/29 1701 1708 Laboratory Tests 07/30 07/30 07/29 0130 0130 2120 Blood Gas pH (7.35 - 7.45 PH) 7.32 L pCO2 (35 - 45 TORR) 45 pO2 (80 - 100 TORR) 106 H HCO3 (21 - 28 MEQ/L) 23 ABG O2 Sat (Measured) (>96.0 %) 97.0 P-50 (Temp Corrected) N Carboxyhemoglobin (1.5 - 5.0 %) 0.8 L O2 Concentration % 30% Temperature (97.0 - 100.0 FARH) 98.0 O2 Delivery Method V/M Chemistry Sodium (137 - 145 mmol/L) 141 Potassium (3.5 - 5.1 mmol/L) 5.2 H Plasma Potassium (3.4 - 4.4 MMOL/L) 5.0 H Chloride (98 - 107 mmol/L) 108 H Carbon Dioxide (22 - 30 mmol/L) 23 Anion Gap (5 - 16) 10 BUN (9 - 20 mg/dL) 52 H Creatinine (0.7 - 1.2 mg/dL) 1.4 H Estimated GFR (>60 ml/min) 50 L BUN/Creatinine Ratio (7 - 25 %) 37.1 H Phosphorus (2.5 - 4.5 mg/dL) 4.8 H Magnesium (1.6 - 2.3 mg/dL) 3.1 H Total Bilirubin (0.2 - 1.3 mg/dL) 0.5 Direct Bilirubin (< 0.4 mg/dL) 0.5 H AST (17 - 59 U/L) 17 ALT (21 - 72 U/L) 30 Alkaline Phosphatase (< 127 U/L) 119 Troponin I (<0.11 ng/ml) < 0.01 Total Protein (6.3 - 8.2 g/dL) 5.7 L Albumin (3.5 - 5.0 g/dL) 2.9 L Coagulation PT (9.4 - 12.5 SEC) 32.6 H INR (0.90 - 1.17) 3.14 H Hematology CBC w Diff NO MAN DIFF REQ WBC (4.8 - 10.8 /CUMM) 13.3 H RBC (4.70 - 6.10 /CUMM) 3.26 L Hgb (14.0 - 18.0 G/DL) 8.3 L Hct (42 - 52 %) 26.4 L MCV (80.0 - 94.0 FL) 81.2 MCH (27.0 - 31.0 PG) 25.4 L RDW (11.5 - 14.5 %) 17.8 H Plt Count (130 - 400 /CUMM) 242 MPV (7.4 - 10.4 FL) 7.6 Gran % (42.2 - 75.2 %) 81.8 H Lymphocytes % (20.5 - 51.1 %) 9.1 L Monocytes % (1.7 - 9.3 %) 7.0 Eosinophils % (0 - 5 %) 1.6 Basophils % (0.0 - 2.0 %) 0.5 Absolute Granulocytes (1.4 - 6.5 /CUMM) 10.9 H Absolute Lymphocytes (1.2 - 3.4 /CUMM) 1.2 Absolute Monocytes (0.10 - 0.60 /CUMM) 0.9 H Absolute Eosinophils (0.0 - 0.7 /CUMM) 0.2 Absolute Basophils (0.0 - 0.2 /CUMM) 0.1 PUBS MCHC (33.0 - 37.0 G/DL) 31.3 L Miscellaneous Phlebotomy Draw Site LEFT RADIAL 07/29 1650 1432 1432 1208 Blood Gas pH (7.35 - 7.45 PH) 7.37 pCO2 (35 - 45 TORR) 33 L pO2 (80 - 100 TORR) 88 HCO3 (21 - 28 MEQ/L) 19 L ABG O2 Sat (Measured) (>96.0 %) 95.0 L P-50 (Temp Corrected) N Carboxyhemoglobin (1.5 - 5.0 %) 2.0 O2 Concentration % 30% Temperature (97.0 - 100.0 FARH) 97.0 Respiration Rate (BPM) 28 O2 Delivery Method FFM Vent Mode ST Expiratory Pressure (CM H2O P) 6 Inspiratory Pressure (CM H2O P) 18 Chemistry Sodium (137 - 145 mmol/L) 139 Potassium (3.5 - 5.1 mmol/L) 5.5 H Chloride (98 - 107 mmol/L) 105 Carbon Dioxide (22 - 30 mmol/L) 24 Anion Gap (5 - 16) 9 BUN (9 - 20 mg/dL) 53 H Creatinine (0.7 - 1.2 mg/dL) 1.4 H Estimated GFR (>60 ml/min) 50 L BUN/Creatinine Ratio (7 - 25 %) 37.9 H Lactic Acid (0.7 - 2.1 mmol/L) 1.1 Phosphorus (2.5 - 4.5 mg/dL) 4.9 H Ammonia (9 - 30 umol/L) 27 Troponin I (<0.11 ng/ml) < 0.01 Miscellaneous Phlebotomy Draw Site LEFT RADIAL 07/29 07/29 07/29 1155 0940 0923 Blood Gas pH (7.35 - 7.45 PH) 7.30 *L 7.28 *L pCO2 (35 - 45 TORR) 48 H 50 H pO2 (80 - 100 TORR) 90 137 H HCO3 (21 - 28 MEQ/L) 23 23 ABG O2 Sat (Measured) (>96.0 %) 95.0 L 97.0 P-50 (Temp Corrected) N N Carboxyhemoglobin (1.5 - 5.0 %) 1.4 L 1.3 L O2 Concentration % 30 3L Temperature (97.0 - 100.0 FARH) 98.0 97.9 Respiration Rate (BPM) 24 O2 Delivery Method BIPAP N/C Vent Mode ST Expiratory Pressure (CM H2O P) 6 Inspiratory Pressure (CM H2O P) 18 Chemistry Plasma Potassium (3.4 - 4.4 MMOL/L) 5.9 H Miscellaneous Phlebotomy Draw Site LEFT RADIAL LEFT RADIAL Vital Signs Date Time Temp Pulse Resp B/P Pulse O2 O2 Flow FiO2 Ox Delivery Rate 07/30 812 98 Nasal 3.0L Cannula 07/30 08 74 98 07/30 0540 69 98 07/30 0400 97 BIPAP 30% 07/30 0329 69 97 07/30 0051 69 97 07/30 0000 97.0 68 28 118/60 97 BIPAP 30% 07/30 0000 97 BIPAP 30% 07/29 2207 BIPAP 30% 07/29 2200 69 97 07/29 2000 98 Venti Mask 30% 07/29 1600 97 BIPAP 30% 07/29 1600 96.8 69 28 120/50 97 BIPAP 30% 07/29 1545 80 96 07/29 1411 74 98 0410 1400 97.1 78 28 118/64 97 BIPAP 30% 07/29 1400 97 BIPAP 30% 07/29 1347 69 24 112/54 99 BIPAP 30% 07/29 1243 69 18 109/55 99 Room Air Room Air 07/29 1226 76 24 105/54 99 BIPAP 30% 07/29 1210 64 97 10 1207 69 24 102/51 99 BIPAP 30% 07/29 1142 69 24 102/56 96 BIPAP 30% 10 1058 98.0 69 2 100/53 BIPAP 07/29 1033 97.1 68 24 108/55 98 BIPAP 30% 10 1026 98 10 0937 64 20 106/55 99 Nasal 3.0L Cannula 07/29 0925 97.9 74 20 110/56
[2016-07-30 12:00] VITALS: BP 122/60
--- NOTE | 2016-07-30 12:05 | RADIOLOGY REPORT ---
EXAMINATION: XR MODIFIED BARIUM SWALLOW CLINICAL INFORMATION: 70-year-old male with altered mental status. Unable to pass bedside swallow test. COMPARISON: None. TECHNIQUE: Fluoroscopic assistance was provided during a modified barium swallow performed in coordination with the speech pathology service. FLUOROSCOPY TIME: 1 minute, 42 seconds NUMBER OF SAVED IMAGES: 20 FINDINGS: The modified barium swallow examination was performed in cooperation with the speech pathologist using dynamic fluoroscopic imaging in a lateral projection. The patient's swallowing function was observed during administration of apple sauce puree, honey, nectar, thin barium contrast, and barium coated bread and cracker. Two episodes of tracheal penetration were observed during oral intake of a relatively large volume thin barium contrast. This did not recur when swallowing smaller volumes of barium contrast. Also, no episodes of tracheal aspiration or penetration occurred when swallowing the other substances. No significant retention of barium within the vallecula or piriform sinuses. Incidentally noted is moderate degenerative loss of disc height and traction osteophyte formation at C4-C5. IMPRESSION: Tracheal penetration was observed during swallowing of relatively large volumes of thin barium contrast. Please refer to the speech pathology report regarding their assessment and treatment recommendations.
[2016-07-30 16:00] VITALS: BP 128/64
--- NOTE | 2016-07-30 20:22 | ECHOCARDIOGRAM REPORT ---
NORAH VOGT Age: 70 : 1945 Gender: M Exam Date: 07/30/2016 12:17 Exam Location: [facility] Ht (in): 67 Wt (lb): 255 BSA: 2.39 BP: 118 / 60 Ordering Physician: JULIO LONG MD Referring Physician: JULIO LONG MD Technologist: Bernabe Rangel Room Number: 107 Indications: HYPOTENSIVE, DKA Rhythm: Other Technical Quality: Poor FINDINGS Left Ventricle Left ventricle not well visualized. Mildly abnormal left ventricular ejection fraction estimated at 35-40%. All segments are not well seen. Right Ventricle Right ventricle not well visualized. Catheter/pacemaker wire in the right ventricular cavity. Right Atrium Right atrium not well visualized, grossly normal. Left Atrium Moderate left atrial dilatation. Mitral Valve Moderate mitral annular calcification. Mild mitral regurgitation. Aortic Valve Diffuse thickening of the aortic valve cusps without reduced excursion. Tricuspid Valve Tricuspid valve not well visualized. . Pulmonic Valve Pulmonic valve not well visualized, grossly normal. Pericardium No pericardial effusion. Great Vessels Normal size aortic root. CONCLUSIONS Poor echo window. Fair overall LV systolic function . All segments are not seen. No gross valvular abnormalities noted. Anuel Gandhi M.D. (Electronically Signed) Final Date: 30 July 2016 20:22 MEASUREMENTS (Male / Female) Normal Values 2D ECHO LV Diastolic Diameter PLAX 4.3 cm 4.2 - 5.9 / 3.9 - 5.3 cm LV Systolic Diameter PLAX 3.3 cm 2.1 - 4.0 cm LV Fractional Shortening PLAX 23.3 % 25 - 46 % LV Ejection Fraction 2D Teich 46.9 % IVS Diastolic Thickness 0.8 cm LVPW Diastolic Thickness 1.0 cm LV Relative Wall Thickness 0.4 LVOT Diameter 1.6 cm Aortic Root Diameter 3.5 cm LA Systolic Diameter LX 5.0 cm 3.0 - 4.0 / 2.7 - 3.8 cm DOPPLER AV Peak Velocity 158.0 cm/s AV Peak Gradient 10.0 mmHg AV Mean Velocity 107.0 cm/s AV Mean Gradient 5.0 mmHg AV Velocity Time Integral 33.6 cm LVOT Peak Velocity 57.6 cm/s LVOT Peak Gradient 1.3 mmHg LVOT Mean Velocity 39.5 cm/s LVOT Mean Gradient 1.0 mmHg LVOT Velocity Time Integral 12.5 cm LVOT Stroke Volume 25.1 cm AV Area Cont Eq vti 0.7 cm AV Area Cont Eq pk 0.7 cm Mitral E Point Velocity 143.0 cm/s Mitral A Point Velocity 28.0 cm/s Mitral E to A Ratio 5.1 MV Deceleration Time 211.0 ms MR Peak Velocity 376.0 cm/s MR Peak Gradient 56.6 mmHg TR Peak Velocity 373.0 cm/s TR Peak Gradient 55.7 mmHg PV Peak Velocity 77.5 cm/s PV Peak Gradient 2.4 mmHg PV Mean Velocity 43.3 cm/s PV Mean Gradient 1.0 mmHg PV Velocity Time Integral 13.5 cm
[2016-07-30 22:00] VITALS: BP 147/64
[2016-07-31 05:57] LABS: PT 38.2 SEC (9.4-12.5)
[2016-07-31 05:59] LABS: ABSOLUTE BASOPHIL COUNT 0.1 /CUMM (0.0-0.2); ABSOLUTE EOSINOPHIL COUNT 0.3 /CUMM (0.0-0.7); ABSOLUTE GRANULOCYTE CT 8.9 /CUMM (1.4-6.5); ABSOLUTE LYMPH COUNT 1.3 /CUMM (1.2-3.4); ABSOLUTE MONOCYTE COUNT 0.8 /CUMM (0.10-0.60); BASOPHIL % 0.5 % (0.0-2.0); EOSINOPHIL % 2.2 % (0-5); GRANULOCYTE % 78.7 % (42.2-75.2); HEMATOCRIT 27.1 % (42-52); MEAN CORPUSCULAR HGB 25.5 PG (27.0-31.0); MEAN CORPUSCULAR HGB CONC 31.8 G/DL (33.0-37.0); MEAN CORPUSCULAR VOLUME 80.2 FL (80.0-94.0); MEAN PLATELET VOLUME 7.6 FL (7.4-10.4); PLATELET COUNT 260 /CUMM (130-400); RBC DISTRIBUTION WIDTH 17.9 % (11.5-14.5); RED BLOOD CELL CT 3.38 /CUMM (4.70-6.10); WHITE BLOOD CELL COUNT 11.4 /CUMM (4.8-10.8)
[2016-07-31 06:00] VITALS: BP 130/85
--- NOTE | 2016-07-31 07:15 | PN- Resident CRCU ---
Subjective HPI/CRCU Issues: Mr. Ng was seen and examined this morning. Reports no issues overnight and is able to state in agreement that he does feel better. He also has nonspecific complaints regarding questionable pain in the abdomen. Patient is aphasic. He is however able to follow verbal commands Has been tolerating by mouth intake well. Patient denies any fever, chills, nausea, vomiting. 24 Hour Events: T: 98.0 Objective Vital Signs & I&O Last 8 Hrs of Vitals and I&O: Intake & Output 07/31 0800 Intake Total 370 Output Total 400 Balance -30 Intake, IV 130 Intake, Oral 240 Number 1 Bowel Movements Output, Urine 400 Exam General Appearance: well developed/nourished, no apparent distress, alert, awake , comfortable Respiratory: Expiratory Rhonchi Cardiovascular: irregularly irregular Gastrointestinal: normal bowel sounds, soft, non-tender, distention Extremities: normal inspection, no edema, Decreased ROM Left LE Cranial Nerves: Dysarthric Speech Current Medications: Current Medications Sig/Phil Start time Last Medication Dose Route Stop Time Status Admin Acetaminophen 650 MG Q6P PRN 07/29 1100 AC 07/30 PO 0946 Albuterol Sulfate 3 ML Q4P PRN 07/29 2230 AC INH Allopurinol 200 MG DAILY 07/30 1000 AC 07/31 PO 0854 Ampicillin Sodium/ 1,500 MG Q6 07/30 1200 AC 07/31 Sulbactam Sodium IV 1217 Sodium Chloride 100 ML Aspirin Buffered 81 MG DAILY 07/30 1000 AC 07/31 PO 0854 Atorvastatin Calcium 20 MG DAILY 07/30 1000 AC 07/31 PO 0854 Docusate Sodium 100 MG BID 07/29 2200 AC 07/30 PO 0950 Ezetimibe 10 MG DAILY 07/30 1000 AC 07/31 PO 0854 Ferrous Sulfate 325 MG BID 07/31 1019 AC 07/31 PO 1216 Fluoxetine HCl 40 MG DAILY 07/30 1000 AC 07/31 PO 0854 Furosemide 40 MG DAILY 07/31 1340 AC PO Insulin Aspart 0 TIDAC 07/31 0800 AC 07/31 SC 1216 Insulin Detemir 15 UNITS AT BEDTIME 07/29 2200 AC 07/30 SC 2208 Insulin Human Regular 0 Q4 07/29 1400 DC 07/30 SC 0511 Magnesium Hydroxide 30 ML DAILY PRN 07/29 1315 AC PO Metoprolol Tartrate 50 MG BID 07/31 1000 AC 07/31 PO 0857 Nystatin 1 ADITHYA BID PRN 07/29 1600 AC TOP Oxycodone/ 1 TAB Q6P PRN 07/29 1100 AC 07/31 Acetaminophen PO 0431 Phenytoin 200 MG BID 07/29 2200 AC 07/31 PO 0853 Polyethylene Glycol 17 GM BID 07/29 2200 AC 07/29 PO 2220 Senna 187 MG DAILY 07/30 1000 AC 07/30 PO 0949 Impression/Plan Impression/Problem List Impression: Mr Ng is a 70-year-old gentleman with a PMH of HFrEF (LVEF 35-40% in 2011), pulmonary hypertension (60mmHG), CAD S/P CABG (2001), AICD (02/2008), 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 Respiratory Increased somnolence and lethargy likely related to community-acquired pneumonia and possible polypharmacy. Ceftazidime and vancomycin also been discontinued the patient is currently on IV Unasyn. Patient has been on a combination of BiPAP and Ventimask. Will attempt to reduce his on and off BiPAP and supplemental nasal cannula as needed. L. APAP ordered for this evenin-18 with 3L O2 Bleed in. Will discontinue any medications with severe sedating properties. Percocet reduced to1 tab Q 6 Hours . Gabapentin has been discontinued. ID Sepsis criteria on admission WBC 20.9. Respiratory rate 24. 07/30/2016 WBC: 11.4 Cardiovascular AICD interogation showed no pathologic Events. Repeat echocardiogram is pending to assess ventricular function. Hold all additional antihypertensives lisinopril, metolazone, Aldactone, amlodipine. Metoprolol started this am 07/31/2016. Following Cardiology Recomendations, have also started Lasix 40 mg. Daily. Once results from modified barium swallow return we can consider beginning addiotinal meds is condition tolerates. Hematology INR this am 3.69 We'll hold any additional anticoagulation until INR is below 3. Metabolic Cr: 1.4. Likely due to ASHA 2/2 due to dehydration. Patient was hyperkalemic on admission. Repeat potassium this morning is 4.5. Continue to monitor. Hold Aldactone Magnesium this a.m. 2.8. Alimentary Swallow evaluation obtained this morning recommended that the patient needed a modified barium Swallow for further recommendations on adequate nutritional supplementation. Once approved we can begin the patient on PO intake and medications. Diet was changed today to: Ground/Mechanical Soft and [place] Thick. Neurology Mentating well. DVT ppx ALPS, holding coumadin, due to Supratherapetic INR Code DNR/DNI Problem List: 1. HFrEF (heart failure with reduced ejection fraction) 2. CKD (chronic kidney disease) 3. Aspiration pneumonia 4. Leukocytosis 5. Hypercapnic respiratory failure Pain Ratin Tomorrow's Labs & Rationales: CBC: monitoring WBC ICU Bundle INR: Coumadin Dosing Plan DVT/Prophylaxis: mechanical
--- NOTE | 2016-07-31 08:50 | PN- Pulmonary ---
Subjective HPI/Critical Care Issues: The patient is awake and alert. He reports feeling improved overall. He remains on reduced doses of Percocet and he is no longer receiving Neurontin. He tolerated BiPAP overnight. He is not able to offer complaints. There were no overnight events reported. Objective Current Medications: Current Medications Sig/Phil Start time Last Medication Dose Route Stop Time Status Admin Acetaminophen 650 MG .STK-MED ONE 07/30 0941 DC PO 07/30 0942 Acetaminophen 650 MG Q6P PRN 07/29 1100 AC 07/30 PO 0946 Albuterol Sulfate 3 ML Q4P PRN 07/29 2230 AC INH Allopurinol 200 MG DAILY 07/30 1000 AC 07/30 PO 0949 Ampicillin Sodium/ 1,500 MG Q6 07/30 1200 AC 07/31 Sulbactam Sodium IV 0524 Sodium Chloride 100 ML Aspirin Buffered 81 MG DAILY 07/30 1000 AC 07/30 PO 0949 Atorvastatin Calcium 20 MG DAILY 07/30 1000 AC 07/30 PO 0949 Ceftazidime 0 .STK-MED ONE 07/29 1123 CAN .ROUTE Ceftazidime 1,000 MG Q12H 07/29 1100 DC 07/29 IV 2220 Docusate Sodium 100 MG BID 07/29 2200 AC 07/30 PO 0950 Ezetimibe 10 MG DAILY 07/30 1000 AC 07/30 PO 0949 Fluoxetine HCl 40 MG DAILY 07/30 1000 AC 07/30 PO 0949 Insulin Aspart 0 TIDAC 07/31 0800 AC SC Insulin Detemir 15 UNITS AT BEDTIME 07/29 2200 AC 07/30 SC 2208 Insulin Human Regular 0 Q4 07/29 1400 DC 07/30 SC 0511 Magnesium Hydroxide 30 ML DAILY PRN 07/29 1315 AC PO Metoprolol Tartrate 50 MG BID 07/31 1000 AC PO Nystatin 1 ADITHYA BID PRN 07/29 1600 AC TOP Oxycodone/ 1 TAB Q6P PRN 07/29 1100 AC 07/31 Acetaminophen PO 0431 Oxycodone/ 2 TAB Q6P PRN 07/29 1100 DC Acetaminophen PO Phenytoin 200 MG BID 07/29 2200 AC 07/30 PO 2207 Polyethylene Glycol 17 GM BID 07/29 2200 AC 07/29 PO 2220 Senna 187 MG DAILY 07/30 1000 AC 07/30 PO 0949 Vancomycin HCl 1,500 MG DAILY 07/29 1100 DC 07/29 Sodium Chloride 250 ML IV 1147 Vital Signs & I&O Last 24 Hrs of Vitals and I&O: Vital Signs Date Time Temp Pulse Resp B/P Pulse O2 O2 Flow FiO2 Ox Delivery Rate 07/31 0600 98.0 89 20 130/85 99 Nasal 3.0L Cannula 07/31 0211 71 96 07/31 0025 69 98 07/31 0000 98 BIPAP 07/30 2200 98.0 75 20 147/64 98 BIPAP 07/30 2132 73 98 07/30 1600 Nasal 3.0L Cannula 07/30 1600 96.8 69 20 128/64 96 Nasal 3.0L Cannula 07/30 1200 Nasal 3.0L Cannula 07/30 1200 97.4 69 18 122/60 96 Nasal 3.0L Cannula Intake & Output 07/31 1600 07/31 0800 07/31 0000 Intake Total 370 240 Output Total 400 350 Balance -30 -110 Intake, IV 130 Intake, Oral 240 240 Number 1 1 Bowel Movements Output, Urine 400 350 Physical Exam General Appearance: awake, comfortable, following commands Head: atraumatic, normal appearance Ears, Nose, Throat: normal pharynx Neck: normal inspection, supple Respiratory: normal breath sounds, chest non-tender, no respiratory distress Cardiovascular: regular rate/rhythm, trace edema Gastrointestinal: normal bowel sounds, soft, non-tender Results Last 24 Hrs of Lab Results: Laboratory Tests 07/31/16 0420: Anion Gap 10, Estimated GFR 55 L, Glucose 103 H, Calcium 8.4, Phosphorus 4.2, Magnesium 2.8 H, Total Bilirubin 0.5, AST 24, ALT 31, Albumin 3.1 L, PT 38.2 H, INR 3.69 H, CBC w Diff NO MAN DIFF REQ, RBC 3.38 L, MCV 80.2, MCH 25.5 L, RDW 17.9 H, MPV 7.6, Gran % 78.7 H, Lymphocytes % 11.5 L, Monocytes % 7.1, Eosinophils % 2.2, Basophils % 0.5, Absolute Granulocytes 8.9 H, Absolute Lymphocytes 1.3, Absolute Monocytes 0.8 H, Absolute Eosinophils 0.3, Absolute Basophils 0.1, PUBS MCHC 31.8 L Last 24 Hrs of Micro Results: Urine culture positive for 30,000 colonies of gram-negative rods. Diagnostic Data ECHO Findings: Poor echo window. Fair overall LV systolic function. All segments are not seen. No gross valvular abnormalities noted. Radiology Findings: Tracheal penetration was observed during swallowing of relatively large volumes of thin barium contrast. Impression/Plan Impression/Plan Impression/Plan: 1. Acute hypercarbic respiratory failure, improved on BiPAP. 2. Aspiration pneumonia, with evidence of significant aspiration on MBS. 3. Change in mental status/unresponsiveness likely related to medications, now improved. 4. Anemia without evidence of bleeding, likely dilutional. 5. Hyperkalemia, improved. 6. History of systolic heart failure and pulmonary hypertension, now with increased ascites on CT of the abdomen. Diuretics currently on hold as per cardiology. 7. 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 8. History of diabetes. 9. Obstructive sleep apnea with CPAP intolerance. 10. CAD status post CABG in 2001, AICD implantation in 2007. 11. Chronic kidney disease. Recommendations: * Continue nocturnal positive pressure, but change to APAP with a pressure of 4- 18 cm H2O. * Continue IV Unasyn. * Monitor INR which is currently supratherapeutic, Coumadin on hold. * Continue nebs/TRC. * Follow up speech therapy recommendations. * Advance diet as tolerated. * Cardiology recommendations reviewed, will follow. * Continue bowel regimen for chronic constipation. * Continue Levemir and sliding scale insulin. * Increase activity, out of bed to chair. * Discontinue [place] catheter. * Continue all supportive care.
--- NOTE | 2016-07-31 09:01 | PN- Att Addend ---
Attending Addendum Attending Brief Note Patient is awake and alert General Appearance: Alert, No Acute Distress Skin: Grossly normal HEENT: PEERLA Neck: Supple, No JVD Cardiovascular: Regular Rate, Normal S1, Normal S2, No Murmurs Lungs: Decreased air entry Abdomen: Soft non tender abdomen, normal bowel sounds Neurological: Normal Speech, Strength at 5/5 X4 Ext, Cranial Nerves 3-12 NL, Reflexes 2+ Extremities: No Clubbing, No Cyanosis, No Edema Vascular: Normal Pulses Assessment Hypercarbic respiratory failure improved on when necessary BiPAP. on IV Unasyn. Barium swallow positive for penetration. He is currently on mechanical chopped. Clinically improved. Stool guaiac negative and he has nutritional iron deficiency with anemia. Plan Continue Unasyn BiPAP when necessary Ferrous sulfate 325 mg twice a day Out of bed to chair Percocet to 1 tab every 6 hour when necessary pain Discontinue Neurontin DNI/DNR Current Medications Sig/Phil Start time Last Medication Dose Route Stop Time Status Admin Acetaminophen 650 MG .STK-MED ONE 07/30 0941 DC PO 07/30 0942 Acetaminophen 650 MG Q6P PRN 07/29 1100 AC 07/30 PO 0946 Albuterol Sulfate 3 ML Q4P PRN 07/29 2230 AC INH Allopurinol 200 MG DAILY 07/30 1000 AC 07/31 PO 0854 Ampicillin Sodium/ 1,500 MG Q6 07/30 1200 AC 07/31 Sulbactam Sodium IV 0524 Sodium Chloride 100 ML Aspirin Buffered 81 MG DAILY 07/30 1000 AC 07/31 PO 0854 Atorvastatin Calcium 20 MG DAILY 07/30 1000 AC 07/31 PO 0854 Ceftazidime 0 .STK-MED ONE 07/29 1123 CAN .ROUTE Ceftazidime 1,000 MG Q12H 07/29 1100 DC 07/29 IV 2220 Docusate Sodium 100 MG BID 07/29 2200 AC 07/30 PO 0950 Ezetimibe 10 MG DAILY 07/30 1000 AC 07/31 PO 0854 Fluoxetine HCl 40 MG DAILY 07/30 1000 AC 07/31 PO 0854 Insulin Aspart 0 TIDAC 07/31 0800 AC SC Insulin Detemir 15 UNITS AT BEDTIME 07/29 2200 AC 07/30 SC 2208 Insulin Human Regular 0 Q4 07/29 1400 DC 07/30 SC 0511 Magnesium Hydroxide 30 ML DAILY PRN 07/29 1315 AC PO Metoprolol Tartrate 50 MG BID 07/31 1000 AC 07/31 PO 0857 Nystatin 1 ADITHYA BID PRN 07/29 1600 AC TOP Oxycodone/ 1 TAB Q6P PRN 07/29 1100 AC 07/31 Acetaminophen PO 0431 Oxycodone/ 2 TAB Q6P PRN 07/29 1100 DC Acetaminophen PO Phenytoin 200 MG BID 07/29 2200 AC 07/31 PO 0853 Polyethylene Glycol 17 GM BID 07/29 2200 AC 07/29 PO 2220 Senna 187 MG DAILY 07/30 1000 AC 07/30 PO 0949 Vancomycin HCl 1,500 MG DAILY 07/29 1100 DC 07/29 Sodium Chloride 250 ML IV 1147 Laboratory Tests 07/31 0420 Chemistry Sodium (137 - 145 mmol/L) 141 Potassium (3.5 - 5.1 mmol/L) 4.5 Chloride (98 - 107 mmol/L) 106 Carbon Dioxide (22 - 30 mmol/L) 25 Anion Gap (5 - 16) 10 BUN (9 - 20 mg/dL) 45 H Creatinine (0.7 - 1.2 mg/dL) 1.3 H Estimated GFR (>60 ml/min) 55 L Glucose (65 - 99 mg/dL) 103 H Calcium (8.4 - 10.2 mg/dL) 8.4 Phosphorus (2.5 - 4.5 mg/dL) 4.2 Magnesium (1.6 - 2.3 mg/dL) 2.8 H Total Bilirubin (0.2 - 1.3 mg/dL) 0.5 AST (17 - 59 U/L) 24 ALT (21 - 72 U/L) 31 Albumin (3.5 - 5.0 g/dL) 3.1 L Coagulation PT (9.4 - 12.5 SEC) 38.2 H INR (0.90 - 1.17) 3.69 H Hematology CBC w Diff NO MAN DIFF REQ WBC (4.8 - 10.8 /CUMM) 11.4 H RBC (4.70 - 6.10 /CUMM) 3.38 L Hgb (14.0 - 18.0 G/DL) 8.6 L Hct (42 - 52 %) 27.1 L MCV (80.0 - 94.0 FL) 80.2 MCH (27.0 - 31.0 PG) 25.5 L RDW (11.5 - 14.5 %) 17.9 H Plt Count (130 - 400 /CUMM) 260 MPV (7.4 - 10.4 FL) 7.6 Gran % (42.2 - 75.2 %) 78.7 H Lymphocytes % (20.5 - 51.1 %) 11.5 L Monocytes % (1.7 - 9.3 %) 7.1 Eosinophils % (0 - 5 %) 2.2 Basophils % (0.0 - 2.0 %) 0.5 Absolute Granulocytes (1.4 - 6.5 /CUMM) 8.9 H Absolute Lymphocytes (1.2 - 3.4 /CUMM) 1.3 Absolute Monocytes (0.10 - 0.60 /CUMM) 0.8 H Absolute Eosinophils (0.0 - 0.7 /CUMM) 0.3 Absolute Basophils (0.0 - 0.2 /CUMM) 0.1 PUBS MCHC (33.0 - 37.0 G/DL) 31.8 L Vital Signs Date Time Temp Pulse Resp B/P Pulse O2 O2 Flow FiO2 Ox Delivery Rate 07/31 0857 98.6 69 20 139/70 07/31 0600 98.0 89 20 130/85 99 Nasal 3.0L Cannula 07/31 0211 71 96 07/31 0025 69 98 07/31 0000 98 BIPAP 07/30 2200 98.0 75 20 147/64 98 BIPAP 07/30 2132 73 98 07/30 1600 Nasal 3.0L Cannula 07/30 1600 96.8 69 20 128/64 96 Nasal 3.0L Cannula 07/30 1200 Nasal 3.0L Cannula 07/30 1200 97.4 69 18 122/60 96 Nasal 3.0L Cannula
--- NOTE | 2016-07-31 12:04 | PN- Cardiology ---
Subjective Subjective: Resting comfortably in his chair. Baseline speech deficit noted. Objective Vital Signs and I&Os Vital Signs Date Time Temp Pulse Resp B/P Pulse O2 O2 Flow FiO2 Ox Delivery Rate 07/31 1110 99 Nasal 3.0L Cannula 07/31 0857 98.6 69 20 139/70 07/31 0800 100 Nasal 3.0L Cannula 07/31 0600 98.0 89 20 130/85 99 Nasal 3.0L Cannula 07/31 0211 71 96 07/31 0025 69 98 07/31 0000 98 BIPAP 07/30 2200 98.0 75 20 147/64 98 BIPAP 07/30 2132 73 98 07/30 1600 Nasal 3.0L Cannula 07/30 1600 96.8 69 20 128/64 96 Nasal 3.0L Cannula 07/30 1200 Nasal 3.0L Cannula 07/30 1200 97.4 69 18 122/60 96 Nasal 3.0L Cannula Intake & Output 07/31 1600 07/31 0800 07/31 0000 07/30 1600 07/30 0800 07/30 0000 Intake Total 370 240 370 0 1000 Output Total 400 350 225 260 400 Balance -30 -110 145 -260 600 Intake, IV 130 130 520 Intake, Oral 240 240 240 0 480 Number 1 1 1 0 0 Bowel Movements Output, Urine 400 350 225 260 400 Physical Exam: General: no apparent distress. Slurred speech Eyes: No obvious scleral icterus. HEENT: No jugular venous distention or abnormal jugular venous pulsations. Cardiovascular: Normal intensity S1/S2. Regular. Respiratory: Mildly decreased air entry bilaterally Abdomen: no guarding or rebound tenderness. Musculoskeletal: No clubbing or cyanosis noted, no edema Skin: Warm Neurologic: Slurred speech, right-sided weakness (chronic) Current Medications: Current Medications Sig/Phil Start time Last Medication Dose Route Stop Time Status Admin Acetaminophen 650 MG Q6P PRN 07/29 1100 AC 07/30 PO 0946 Albuterol Sulfate 3 ML Q4P PRN 07/29 2230 AC INH Allopurinol 200 MG DAILY 07/30 1000 AC 07/31 PO 0854 Ampicillin Sodium/ 1,500 MG Q6 07/30 1200 AC 07/31 Sulbactam Sodium IV 0524 Sodium Chloride 100 ML Aspirin Buffered 81 MG DAILY 07/30 1000 AC 07/31 PO 0854 Atorvastatin Calcium 20 MG DAILY 07/30 1000 AC 07/31 PO 0854 Docusate Sodium 100 MG BID 07/29 2200 AC 07/30 PO 0950 Ezetimibe 10 MG DAILY 07/30 1000 AC 07/31 PO 0854 Ferrous Sulfate 325 MG BID 07/31 1019 AC PO Fluoxetine HCl 40 MG DAILY 07/30 1000 AC 07/31 PO 0854 Insulin Aspart 0 TIDAC 07/31 0800 AC SC Insulin Detemir 15 UNITS AT BEDTIME 07/29 2200 AC 07/30 SC 2208 Insulin Human Regular 0 Q4 07/29 1400 DC 07/30 SC 0511 Magnesium Hydroxide 30 ML DAILY PRN 07/29 1315 AC PO Metoprolol Tartrate 50 MG BID 07/31 1000 AC 07/31 PO 0857 Nystatin 1 ADITHYA BID PRN 07/29 1600 AC TOP Oxycodone/ 1 TAB Q6P PRN 07/29 1100 AC 07/31 Acetaminophen PO 0431 Phenytoin 200 MG BID 07/29 2200 AC 07/31 PO 0853 Polyethylene Glycol 17 GM BID 07/29 2200 AC 07/29 PO 2220 Senna 187 MG DAILY 07/30 1000 AC 07/30 PO 0949 Results Last 48 Hrs of Labs/Mics: Laboratory Tests 07/31/16 0420: Anion Gap 10, Estimated GFR 55 L, Glucose 103 H, Calcium 8.4, Phosphorus 4.2, Magnesium 2.8 H, Total Bilirubin 0.5, AST 24, ALT 31, Albumin 3.1 L, PT 38.2 H, INR 3.69 H, CBC w Diff NO MAN DIFF REQ, RBC 3.38 L, MCV 80.2, MCH 25.5 L, RDW 17.9 H, MPV 7.6, Gran % 78.7 H, Lymphocytes % 11.5 L, Monocytes % 7.1, Eosinophils % 2.2, Basophils % 0.5, Absolute Granulocytes 8.9 H, Absolute Lymphocytes 1.3, Absolute Monocytes 0.8 H, Absolute Eosinophils 0.3, Absolute Basophils 0.1, PUBS MCHC 31.8 L 07/30/16 0130: Plasma Potassium 5.0 H, Troponin I < 0.01 07/30/16 0130: Anion Gap 10, Estimated GFR 50 L, BUN/Creatinine Ratio 37.1 H, Phosphorus 4.8 H, Magnesium 3.1 H, Iron 16 L, TIBC 250 L, % Saturation 6 L, Ferritin 49.6, Total Bilirubin 0.5, Direct Bilirubin 0.5 H, AST 17, ALT 30, Alkaline Phosphatase 119, Total Protein 5.7 L, Albumin 2.9 L, PT 32.6 H, INR 3.14 H, CBC w Diff NO MAN DIFF REQ, RBC 3.26 L, MCV 81.2, MCH 25.4 L, RDW 17.8 H, MPV 7.6, Gran % 81.8 H, Lymphocytes % 9.1 L, Monocytes % 7.0, Eosinophils % 1.6, Basophils % 0.5, Absolute Granulocytes 10.9 H, Absolute Lymphocytes 1.2, Absolute Monocytes 0.9 H, Absolute Eosinophils 0.2, Absolute Basophils 0.1, PUBS MCHC 31.3 L 07/29/160: pH 7.32 L, pCO2 45, pO2 106 H, HCO3 23, ABG O2 Sat (Measured) 97.0, P-50 (Temp Corrected) N, Carboxyhemoglobin 0.8 L, O2 Concentration % 30%, Temperature 98.0 , O2 Delivery Method V/M, Phlebotomy Draw Site LEFT RADIAL 07/29/16 1955: Troponin I < 0.01 07/29/16 1650: pH 7.37, pCO2 33 L, pO2 88, HCO3 19 L, ABG O2 Sat (Measured) 95.0 L, P-50 ( Temp Corrected) N, Carboxyhemoglobin 2.0, O2 Concentration % 30%, Temperature 97.0, Respiration Rate 28, O2 Delivery Method FFM, Vent Mode ST, Expiratory Pressure 6, Inspiratory Pressure 18, Phlebotomy Draw Site LEFT RADIAL 07/29/16 1432: Anion Gap 9, Estimated GFR 50 L, BUN/Creatinine Ratio 37.9 H, Phosphorus 4.9 H 07/29/16 1432: Ammonia 27 07/29/16 1208: Lactic Acid 1.1 07/29/16 1155: pH 7.30 *L, pCO2 48 H, pO2 90, HCO3 23, ABG O2 Sat (Measured) 95.0 L, P-50 ( Temp Corrected) N, Carboxyhemoglobin 1.4 L, O2 Concentration % 30, Temperature 98.0, Respiration Rate 24, O2 Delivery Method BIPAP, Vent Mode ST, Expiratory Pressure 6, Inspiratory Pressure 18, Phlebotomy Draw Site LEFT RADIAL Microbiology 07/29 1408 UPPER RESP: Surveillance Culture - COMP 07/29 1408 GI: Surveillance Culture - COMP Recent Imaging Studies: Telemetry tracings were personally reviewed and show a paced rhythm Echo: CONCLUSIONS Poor echo window. Fair overall LV systolic function . All segments are not seen. No gross valvular abnormalities noted. Assessment/Plan Assessment/Plan 1. Coronary artery disease status post coronary bypass surgery 2. Hx Ischemic cardiomyopathy ejection fraction 30% status post AICD 3. Persistent atrial fibrillation on Coumadin 4. CVA by history with a aphasia and motor weakness wheelchair bound 5. Diabetes 6. Obstructive sleep apnea on CPAP 7. Hypertension now with borderline hypotension most likely secondary to pneumonia and sepsis, improving 8. Lethargy most likely secondary to community-acquired pneumonia with fever and elevated white count versus medication related 9. Ascites noted on CT the abdomen 10. Acute on chronic Renal insufficiency with hyperkalemia 11. Anemia Blood pressure appears improved and the beta garry has been resumed. Telemetry and ICD interrogation showed no major arrhythmic events. Echocardiogram shows ejection fraction of 35-40%, limited study. Can likely resume outpatient Lasix. I'm not entirely convinced the ascites is cardiac in etiology but this is in the differential. TASHA inhibitor currently on hold due to presenting hyperkalemia as is the Aldactone. Coumadin is on hold for supratherapeutic INR. Maurice Brooks MD [facility] Continue telemetry? Yes
[2016-07-31 23:00] VITALS: BP 138/62
--- NOTE | 2016-08-01 07:15 | Transfer of Care Summary ---
Hospital Course Course Hospital Course: Please Refer to below. Pertinent Lab Results: SERVICE DATE: 07/30/16- EXAM TYPE: RAD - XRY-MODIFIED BARIUM SWALLOW EXAMINATION: XR MODIFIED BARIUM SWALLOW CLINICAL INFORMATION: 70-year-old male with altered mental status. Unable to pass bedside swallow test. COMPARISON: None. TECHNIQUE: Fluoroscopic assistance was provided during a modified barium swallow performed in coordination with the speech pathology service. FLUOROSCOPY TIME: 1 minute, 42 seconds NUMBER OF SAVED IMAGES: 20 FINDINGS: The modified barium swallow examination was performed in cooperation with the speech pathologist using dynamic fluoroscopic imaging in a lateral projection. The patient's swallowing function was observed during administration of apple sauce puree, honey, nectar, thin barium contrast, and barium coated bread and cracker. Two episodes of tracheal penetration were observed during oral intake of a relatively large volume thin barium contrast. This did not recur when swallowing smaller volumes of barium contrast. Also, no episodes of tracheal aspiration or penetration occurred when swallowing the other substances. No significant retention of barium within the vallecula or piriform sinuses. Incidentally noted is moderate degenerative loss of disc height and traction osteophyte formation at C4-C5. IMPRESSION: Tracheal penetration was observed during swallowing of relatively large volumes of thin barium contrast. Please refer to the speech pathology report regarding their assessment and treatment recommendations. DICTATED BY: RHETT MCDANIEL MD SERVICE DATE: 07/29/16 EXAM TYPE: CAT - CT HEAD WO IV CONTRAST EXAMINATION: CT HEAD WITHOUT CONTRAST CLINICAL INFORMATION: Altered mental status. History of CVA. COMPARISON: 06/01/2011 TECHNIQUE: Contiguous axial imaging was performed from the skull base to vertex without intravenous contrast. DLP: 672 mGy-cm. FINDINGS: There is no evidence of acute intracranial hemorrhage or territorial infarction. No abnormal mass effect or midline shift is seen. Chronic encephalomalacia of the left frontal, temporal, and parietal lobes from prior infarct, unchanged. Yañez to white matter differentiation is otherwise well preserved. No extra-axial fluid collections are identified. No hydrocephalus. Proportional prominence of the ventricles and sulcal spaces is consistent with mild volume loss. Scoliosis is seen throughout the left cerebral hemisphere, similar to previous. The osseous structures and soft tissues are normal. There is moderate opacification of the maxillary sinuses. The mastoid air cells and visualized portions of the paranasal sinuses are otherwise well aerated. IMPRESSION: No acute intracranial pathology. Chronic left cerebral encephalomalacia. DICTATED BY: JANEE MASON MD SERVICE DATE: 07/29/16 EXAM TYPE: CAT - CT CHEST WO IV CONTRAST EXAMINATION: CT CHEST WITHOUT CONTRAST CLINICAL INFORMATION: Lethargy. Weakness and cough. COMPARISON: Radiograph from today. CT from 09/04/2008. TECHNIQUE: Multidetector volumetric CT imaging of the chest was done. Axial MIP volume rendering provided. Sagittal and coronal reformatted images were obtained. DLP: 668 mGy-cm FINDINGS: LUNGS: Secretions are seen within the trachea. Scattered bronchial filling defects are noted in the lower lobes. Motion limits evaluation of the lower lobes. Calcified granulomata are noted. Geographic groundglass opacities are seen, most prominently affecting the upper lobes. No pneumothorax. MEDIASTINUM: Left chest wall pacer noted with leads terminating in the right ventricle and coronary sinus. The heart is enlarged. Coronary artery calcifications are present. Small amount of gas seen within the main pulmonary artery, right atrium, and right ventricle. No pericardial effusion. No mediastinal lymphadenopathy. Prominence of the superior mediastinal fat. PLEURA: There is no pleural effusion. No pleural mass or thickening. Pleural calcifications seen at the left base. AXILLA: Multiple small lymph nodes. Edema is seen along the right lateral chest wall. UPPER ABDOMEN: Ascites. Anasarca is seen within the abdominal wall. OSSEOUS STRUCTURES: DISH. No acute or suspicious osseous abnormalities. Median sternotomy wires noted. IMPRESSION: Groundglass opacities bilaterally are nonspecific. These may be infectious or inflammatory in etiology. Hypersensitivity reaction is possible. No septal thickening seen to suggest edema. Scattered filling defects within the bronchi could be associated with aspiration. 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 Respiratory Increased somnolence and lethargy likely related to community-acquired pneumonia. The patient was started on Ceftazidime and vancomycin and then switched over to IV Unasyn, continue IV Unasyn and consider switching the patient to by mouth antibiotics once clinical condition allows and sensitivities are available. Patient has been on a combination of BiPAP and Ventimask. Prior to transfer from the ICU BiPAP was converted to APAP. Continue to hold sedating medications.Gabapentin has been discontinued. Percocet reduced to1 tab Q 6 Hours . ID Sepsis criteria on admission WBC 20.9. Respiratory rate 24. 07/31/2016 WBC: 11.4. Cardiovascular AICD interogation showed no pathologic Events. Repeat echocardiogram is pending to assess ventricular function. The patient's antihypertensive medications are currently been on hold. Continue to monitor pressure and once electrolytes and patient's pressure can tolerate consider resuming these medications. Home dose of metoprolol was started on 07/31/2016. Lasix 40 mg was also started while the patient was in the ICU. Hematology Throughout admission patient has had an INR that has been supratherapeutic. We have subsequently held his Coumadin. Please continue to monitor Metabolic Cr: 1.4. Likely due to ASHA 2/2 due to dehydration/decreased PO intake. Patient was hyperkalemic on admission. Repeat potassium on the morning of 2016. 4.5. Continue to monitor. Aldactone was held owing to hyperkalemia. Cardiology was on board to offer recommendations when this medication can be started. Alimentary Modified barium swallow did show some evidence of penetration. A formal swallow evaluation was obtained and the patient was changed. Diet was changed today to: Ground/Mechanical Soft and [place] Thick. DVT ppx His Coumadin was held while he was at the ICU due to supratherapeutic Coumadin. Cardiology was on board. Continue trending INR till target is reached and then continue maintenance dose. Code DNR/DNI Attending MD Review Statement Documenting Attending: WISAM PAN MD
--- NOTE | 2016-08-01 07:33 | PN- Housestaff ---
"Subjective Follow-up For: Acute hypercarbic respiratory failure Aspiration pneumonia HFrEF 2/2 ischemic cardiomyopathy s/p AICD Atrial fibrillation IDDM CKD Tele-Events Since Last Visit: Single pacing HR 69 No overnight events Subjective: No acute events overnight. Patient was seen and examined this morning. He reported worsening shortness of breath and was noted to be in respiratory distress with abdominal paradox and wheezing. ABG was performed which showed no evidence of hypercarbia. Patient was given a nebulizer treatment and started on CPAP as he was taking a nap. CXR showed no interval changes. Review of Systems Constitutional: Reports: see HPI. Objective Last 24 Hrs of Vital Signs/I&O Vital Signs Date Time Temp Pulse Resp B/P Pulse O2 O2 Flow FiO2 Ox Delivery Rate 08/01 1119 99 Nasal 3.0L Cannula 08/01 0817 98 Nasal 2.0L Cannula 08/01 0806 97.8 69 20 154/78 99 Nasal 3.0L Cannula 08/01 0014 71 99 08/01 0000 Nasal 3.0L Cannula 07/31 2300 98.6 69 18 138/62 99 Nasal 3.0L Cannula 07/31 2216 70 18 160/60 07/31 2116 95 Nasal 3.0L Cannula 07/31 1600 99 Nasal 3.0L Cannula Intake & Output 08/01 1600 08/01 0800 08/01 0000 Intake Total 240 340 Output Total 1200 Balance 240 -860 Intake, IV 100 Intake, Oral 240 240 Number 1 Bowel Movements Output, Urine 1200 Physical Exam General Appearance: Alert, Oriented X3, No Acute Distress HEENT: Atraumatic, Mucous Membr. moist/pink Cardiovascular: Regular Rate, Normal S1, Normal S2 Lungs: Wheezes Scattered Throughout Bilateral Lung Seth, Mild Respiratory Distress Abdomen: Soft, No Tenderness, Positive Bowel Sounds Extremities: No Clubbing, No Cyanosis, No Edema Current Medications: Current Medications Sig/Phil Start time Last Medication Dose Route Stop Time Status Admin Acetaminophen 650 MG Q6P PRN 07/29 1100 AC 08/01 PO 1348 Albuterol Sulfate 3 ML Q4P PRN 07/29 2230 AC 08/01 INH 1105 Allopurinol 200 MG DAILY 07/30 1000 AC 08/01 PO 1354 Amoxicillin/ 875 MG Q12 08/02 1000 AC Clavulanate Potassium PO Ampicillin Sodium/ 1,500 MG Q6 07/30 1200 AC 08/01 Sulbactam Sodium IV 08/02 0600 1750 Sodium Chloride 100 ML Aspirin Buffered 81 MG DAILY 07/30 1000 AC 07/31 PO 0854 Atorvastatin Calcium 20 MG DAILY 07/30 1000 AC 07/31 PO 0854 Docusate Sodium 100 MG BID 07/29 2200 AC 07/30 PO 0950 Ezetimibe 10 MG DAILY 07/30 1000 AC 07/31 PO 0854 Ferrous Sulfate 325 MG BID 07/31 1019 AC 07/31 PO 2216 Fluoxetine HCl 40 MG DAILY 07/30 1000 AC 07/31 PO 0854 Furosemide 40 MG DAILY 07/31 1340 AC 08/01 PO 1350 Insulin Aspart 0 TIDAC 07/31 0800 AC 07/31 SC 1806 Insulin Detemir 15 UNITS AT BEDTIME 07/29 2200 AC 07/31 SC 2226 Lisinopril 40 MG DAILY 08/01 1100 AC 08/01 PO 1350 Magnesium Hydroxide 30 ML DAILY PRN 07/29 1315 AC PO Metolazone 2.5 MG 08/02 1000 AC PO Metoprolol Tartrate 50 MG BID 07/31 1000 AC 08/01 PO 1350 Nystatin 1 ADITHYA BID 08/01 1111 AC 08/01 TOP 1356 Nystatin 1 ADITHYA BID PRN 07/29 1600 AC TOP Oxycodone/ 1 TAB Q6P PRN 07/29 1100 AC 08/01 Acetaminophen PO 0122 Phenytoin 200 MG BID 07/29 2200 AC 08/01 PO 1350 Polyethylene Glycol 17 GM BID 07/29 2200 AC 07/29 PO 2220 Senna 187 MG DAILY 07/30 1000 AC 07/30 PO 0949 Spironolactone 25 MG DAILY 08/02 1000 AC PO Warfarin Sodium 2.5 MG COUMADIN 1700 ONE 08/01 1700 DC 08/01 PO 08/01 1701 1746 Last 24 Hrs of Lab/Emil Results Last 24 Hrs of Labs/Mics: Laboratory Tests 08/01/16 1111: pH 7.38, pCO2 39, pO2 90, HCO3 22, ABG O2 Sat (Measured) 97.0, P-50 (Temp Corrected) NO, Carboxyhemoglobin 0.3 L, O2 Concentration % 3L, Temperature 97.8 , O2 Delivery Method NC, Phlebotomy Draw Site LEFT RADIAL 08/01/16 0615: Anion Gap 9, Estimated GFR > 60, BUN/Creatinine Ratio 35.5 H, PT 25.4 H, INR 2.44 H, CBC w Diff NO MAN DIFF REQ, RBC 3.41 L, MCV 80.1, MCH 25.6 L, RDW 17.6 H, MPV 7.7, Gran % 76.8 H, Lymphocytes % 13.8 L, Monocytes % 6.9, Eosinophils % 2.3, Basophils % 0.2, Absolute Granulocytes 8.3 H, Absolute Lymphocytes 1.5, Absolute Monocytes 0.7 H, Absolute Eosinophils 0.3, Absolute Basophils 0, PUBS MCHC 31.9 L Orders Radiology Findings: Persistent stable moderate enlargement of the cardiomediastinal silhouette, without any superimposed acute cardiopulmonary process or any significant change since 07/29/2016. Assessment/Plan Assessment: 70 y/o M with PMHx of HFrEF 2/2 ischemic cardiomyopathy s/p AICD, atrial fibrillation, BROOKS noncompliant on CPAP and left hemispheric CVA with residual aphasia and right-sided paralysis who is admitted for acute hypercarbic respiratory failure secondary to aspiration pneumonia. #Aspiration pneumonia: Worsening SOB noted this morning. ABG WNL with no evidence of hypercarbia (7.38|39|90|22). Repeat CXR with no interval changes. SOB has improved and patient is back on 3 L NC. Refused trials of mechanical soft/ground diet today. * Pulmonology following. Appreciate their recs. * Continue BiPAP PRN. * Provide supplemental oxygen as needed to keep SpO2 > 92%. * Speech therapy following. Appreciate their recs. * Strict aspiration precautions. * Diet downgraded to puree and nectar thick liquids today. * Continue Unasyn 1.5 g IV Q6H for one more day. * Switch to Augmentin 875 mg PO BID in the AM. * TRC and nebs. #HFrEF: 2/2 ischemic cardiomyopathy. ECHO with LVEF 35-40%. S/p AICD placement. * Cardiology following. Appreciate their recs. * Resume lisinopril 40 mg PO daily given resolution of hyperkalemia and hypotension. * Continue Lasix 40 mg PO daily. * Resume spirinolactone 40 mg PO daily in the AM. * Resume metolazone 2.5 mg PO MWF. * Continue to monitor I/Os. #ASHA on CKD: Creatinine improved to 1.1. * Continue to monitor kidney function. #IDDM: * Continue Levemir 15 units SQ QHS. * Accu-checks and low-dose sliding scale Novolog TIDAC. #Atrial fibrillation: Takes warfarin 2.5 mg PO daily. INR 2.44 today. * Administer warfarin 2.5 mg PO today. * Continue to monitor INR and dose warfarin accordingly to keep INR between 2 and 3. #Constipation: * Continue aggressive bowel regiment with scheduled Colace, Miralax and Senna and PRN milk of magnesia. #Anemia: * Continue ferrous sulfate 325 mg PO BID. Diet: Consistent Carbohydrate 2 - Puree and [place] Thick Liquids DVT PPx: Warfarin and ALPs CODE: DNR/DNI Problem List: 1. HFrEF (heart failure with reduced ejection fraction) 2. Aspiration pneumonia 3. Acute hypercapnic respiratory failure 4. CKD (chronic kidney disease) 5. HTN (hypertension) 6. History of CVA with residual deficit 7. IDDM (insulin dependent diabetes mellitus) 8. Chronic anemia Pain Ratin Pain Location: N/A Pain Goal: Remain pain free Pain Plan: Percocet 1 tab PO Q6H PRN for moderate pain (scale 4-6) Tylenol 650 mg PO Q6H PRN for mild pain (scale 1-3) Tomorrow's Labs & Rationales: CBC to monitor WBC in the setting of aspiration pneumonia BMP to monitor lytes and kidney function in the setting of ASHA on CKD INR to monitor warfarin therapy"
[2016-08-01 08:00] LABS: ABSOLUTE BASOPHIL COUNT 0 /CUMM (0.0-0.2); ABSOLUTE EOSINOPHIL COUNT 0.3 /CUMM (0.0-0.7); ABSOLUTE GRANULOCYTE CT 8.3 /CUMM (1.4-6.5); ABSOLUTE LYMPH COUNT 1.5 /CUMM (1.2-3.4); ABSOLUTE MONOCYTE COUNT 0.7 /CUMM (0.10-0.60); BASOPHIL % 0.2 % (0.0-2.0); EOSINOPHIL % 2.3 % (0-5); GRANULOCYTE % 76.8 % (42.2-75.2); HEMATOCRIT 27.3 % (42-52); MEAN CORPUSCULAR HGB 25.6 PG (27.0-31.0); MEAN CORPUSCULAR HGB CONC 31.9 G/DL (33.0-37.0); MEAN CORPUSCULAR VOLUME 80.1 FL (80.0-94.0); MEAN PLATELET VOLUME 7.7 FL (7.4-10.4); PLATELET COUNT 258 /CUMM (130-400); RBC DISTRIBUTION WIDTH 17.6 % (11.5-14.5); RED BLOOD CELL CT 3.41 /CUMM (4.70-6.10); WHITE BLOOD CELL COUNT 10.9 /CUMM (4.8-10.8)
[2016-08-01 08:06] VITALS: BP 154/78
[2016-08-01 08:36] LABS: PT 25.4 SEC (9.4-12.5)
--- NOTE | 2016-08-01 09:42 | PN- Att Addend ---
Attending Addendum Attending Brief Note Patient is awake and alert General Appearance: Alert, No Acute Distress Skin: Grossly normal HEENT: PEERLA Neck: Supple, No JVD Cardiovascular: Regular Rate, Normal S1, Normal S2, No Murmurs Lungs: Decreased air entry Abdomen: Soft non tender abdomen, normal bowel sounds Neurological: Normal Speech, Strength at 5/5 X4 Ext, Cranial Nerves 3-12 NL, Reflexes 2+ Extremities: No Clubbing, No Cyanosis, No Edema Vascular: Normal Pulses Assessment Hypercarbic respiratory failure improved on when necessary BiPAP. on IV Unasyn. Barium swallow positive for penetration. He is currently on mechanical chopped. Clinically improved. Stool guaiac negative and he has nutritional iron deficiency with anemia. Plan Continue Unasyn for 1 more day and switch to Augmentin in a.m. BiPAP when necessary Ferrous sulfate 325 mg twice a day Out of bed to chair Percocet to 1 tab every 6 hour when necessary pain Discontinue Neurontin DNI/DNR Current Medications Sig/Phil Start time Last Medication Dose Route Stop Time Status Admin Acetaminophen 650 MG Q6P PRN 07/29 1100 AC 07/30 PO 0946 Albuterol Sulfate 3 ML Q4P PRN 07/29 2230 AC INH Allopurinol 200 MG DAILY 07/30 1000 AC 07/31 PO 0854 Ampicillin Sodium/ 1,500 MG Q6 07/30 1200 AC 08/01 Sulbactam Sodium IV 0541 Sodium Chloride 100 ML Aspirin Buffered 81 MG DAILY 07/30 1000 AC 07/31 PO 0854 Atorvastatin Calcium 20 MG DAILY 07/30 1000 AC 07/31 PO 0854 Docusate Sodium 100 MG BID 07/29 2200 AC 07/30 PO 0950 Ezetimibe 10 MG DAILY 07/30 1000 AC 07/31 PO 0854 Ferrous Sulfate 325 MG BID 07/31 1019 AC 07/31 PO 2216 Fluoxetine HCl 40 MG DAILY 07/30 1000 AC 07/31 PO 0854 Furosemide 40 MG DAILY 07/31 1340 AC 07/31 PO 1752 Insulin Aspart 0 TIDAC 07/31 0800 AC 07/31 SC 1806 Insulin Detemir 15 UNITS AT BEDTIME 07/29 2200 AC 07/31 SC 2226 Magnesium Hydroxide 30 ML DAILY PRN 07/29 1315 AC PO Metoprolol Tartrate 50 MG BID 07/31 1000 AC 07/31 PO 2216 Nystatin 1 ADITHYA BID PRN 07/29 1600 AC TOP Oxycodone/ 1 TAB Q6P PRN 07/29 1100 AC 08/01 Acetaminophen PO 0122 Phenytoin 200 MG BID 07/29 2199 AC 07/31 PO 2216 Polyethylene Glycol 17 GM BID 07/29 2199 AC 07/29 PO 2220 Senna 187 MG DAILY 07/30 1000 AC 07/30 PO 0949 Laboratory Tests 08/01 0615 Chemistry Sodium (137 - 145 mmol/L) 142 Potassium (3.5 - 5.1 mmol/L) 4.3 Chloride (98 - 107 mmol/L) 107 Carbon Dioxide (22 - 30 mmol/L) 26 Anion Gap (5 - 16) 9 BUN (9 - 20 mg/dL) 39 H Creatinine (0.7 - 1.2 mg/dL) 1.1 Estimated GFR (>60 ml/min) > 60 BUN/Creatinine Ratio (7 - 25 %) 35.5 H Coagulation PT (9.4 - 12.5 SEC) 25.4 H INR (0.90 - 1.17) 2.44 H Hematology CBC w Diff NO MAN DIFF REQ WBC (4.8 - 10.8 /CUMM) 10.9 H RBC (4.70 - 6.10 /CUMM) 3.41 L Hgb (14.0 - 18.0 G/DL) 8.7 L Hct (42 - 52 %) 27.3 L MCV (80.0 - 94.0 FL) 80.1 MCH (27.0 - 31.0 PG) 25.6 L RDW (11.5 - 14.5 %) 17.6 H Plt Count (130 - 400 /CUMM) 258 MPV (7.4 - 10.4 FL) 7.7 Gran % (42.2 - 75.2 %) 76.8 H Lymphocytes % (20.5 - 51.1 %) 13.8 L Monocytes % (1.7 - 9.3 %) 6.9 Eosinophils % (0 - 5 %) 2.3 Basophils % (0.0 - 2.0 %) 0.2 Absolute Granulocytes (1.4 - 6.5 /CUMM) 8.3 H Absolute Lymphocytes (1.2 - 3.4 /CUMM) 1.5 Absolute Monocytes (0.10 - 0.60 /CUMM) 0.7 H Absolute Eosinophils (0.0 - 0.7 /CUMM) 0.3 Absolute Basophils (0.0 - 0.2 /CUMM) 0 PUBS MCHC (33.0 - 37.0 G/DL) 31.9 L Vital Signs Date Time Temp Pulse Resp B/P Pulse O2 O2 Flow FiO2 Ox Delivery Rate 08/01 0817 98 Nasal 2.0L Cannula 08/01 0806 97.8 69 20 154/78 99 Nasal 3.0L Cannula 08/01 0014 71 99 08/01 0000 Nasal 3.0L Cannula 07/31 2300 98.6 69 18 138/62 99 Nasal 3.0L Cannula 07/31 2216 70 18 160/60 07/31 2116 95 Nasal 3.0L Cannula 07/31 1600 99 Nasal 3.0L Cannula 07/31 1110 99 Nasal 3.0L Cannula
--- NOTE | 2016-08-01 10:40 | PN- Cardiology ---
Subjective Subjective: Telemetry reviewed. Paced rhythm. Patient transferred from ICU yesterday. Appears in good spirits. Objective Vital Signs and I&Os Vital Signs Date Time Temp Pulse Resp B/P Pulse O2 O2 Flow FiO2 Ox Delivery Rate 08/01 08 98 Nasal 2.0L Cannula 08/01 08 97.8 69 20 154/78 99 Nasal 3.0L Cannula 08/01 0014 71 99 08/01 0000 Nasal 3.0L Cannula 07/31 2300 98.6 69 18 138/62 99 Nasal 3.0L Cannula 07/31 2216 70 18 160/60 07/31 2116 95 Nasal 3.0L Cannula 07/31 1600 99 Nasal 3.0L Cannula 07/31 1110 99 Nasal 3.0L Cannula Intake & Output 08/01 1600 08/01 0800 08/01 0000 07/31 1600 07/31 0800 07/31 0000 Intake Total 240 340 580 370 240 Output Total 1200 400 400 350 Balance 240 -860 180 -30 -110 Intake, IV 100 100 130 Intake, Oral 240 240 480 240 240 Number 1 1 1 Bowel Movements Output, Urine 1200 400 400 350 Patient 258 lb Weight Physical Exam: Gen. exam patient comfortable Head normocephalic atraumatic Eyes sclera anicteric conjunctiva showed no pallor neck soft muscular normal Patient is dysphasic Neck no jugular venous distention no thyroid masses no palpable nodes Chest lungs were clear bilaterally Heart regular rhythm with a grade 1 to 2/6 systolic murmur Abdomen soft protuberant Extremities right hemiplegia Assessment/Plan Assessment/Plan In summary this 70-year-old gentleman has the following problems 1. Coronary artery disease status post coronary bypass surgery 2. Hx Ischemic cardiomyopathy ejection fraction 30% status post AICD 3. Persistent atrial fibrillation on Coumadin 4. CVA by history with a aphasia and motor weakness wheelchair bound 5. Diabetes 6. Obstructive sleep apnea on CPAP 7. Hypertension now with borderline hypotension most likely secondary to pneumonia and sepsis, improving 8. Lethargy most likely secondary to community-acquired pneumonia with fever and elevated white count versus medication related 9. Ascites noted on CT the abdomen 10. Acute on chronic Renal insufficiency with hyperkalemia 11. Anemia The presenting issue was probably related to aspiration pneumonia. CT scan is quite convincing of aspiration pneumonia. I would resume his TASHA inhibitor's since he has cardiomyopathy. His potassium level are now normal. If he is sent back to the senior living facility I would suggest obtaining potassium level with electrolytes once a week for 2 weeks. Preadmission cardiac medications should be resumed. Continue telemetry? Yes
--- NOTE | 2016-08-01 11:35 | PN- Pulmonary ---
Subjective HPI/Critical Care Issues: The patient is awake and alert. He used AutoPap last night per staff. This morning however the patient appears more dyspneic with some slight abdominal paradox. He denies shortness of breath but does appear more distress than yesterday. Objective Current Medications: Current Medications Sig/Phil Start time Last Medication Dose Route Stop Time Status Admin Acetaminophen 650 MG Q6P PRN 07/29 1100 AC 07/30 PO 0946 Albuterol Sulfate 3 ML Q4P PRN 07/29 2230 AC 08/01 INH 1105 Allopurinol 200 MG DAILY 07/30 1000 AC 07/31 PO 0854 Amoxicillin/ 875 MG Q12 08/02 1000 AC Clavulanate Potassium PO Ampicillin Sodium/ 1,500 MG Q6 07/30 1200 AC 08/01 Sulbactam Sodium IV 08/02 0600 0541 Sodium Chloride 100 ML Aspirin Buffered 81 MG DAILY 07/30 1000 AC 07/31 PO 0854 Atorvastatin Calcium 20 MG DAILY 07/30 1000 AC 07/31 PO 0854 Docusate Sodium 100 MG BID 07/29 2200 AC 07/30 PO 0950 Ezetimibe 10 MG DAILY 07/30 1000 AC 07/31 PO 0854 Ferrous Sulfate 325 MG BID 07/31 1019 AC 07/31 PO 2216 Fluoxetine HCl 40 MG DAILY 07/30 1000 AC 07/31 PO 0854 Furosemide 40 MG DAILY 07/31 1340 AC 07/31 PO 1752 Insulin Aspart 0 TIDAC 07/31 0800 AC 07/31 SC 1806 Insulin Detemir 15 UNITS AT BEDTIME 07/29 2200 AC 07/31 SC 2226 Lisinopril 40 MG DAILY 08/01 1100 AC PO Magnesium Hydroxide 30 ML DAILY PRN 07/29 1315 AC PO Metolazone 2.5 MG 08/02 1000 AC PO Metoprolol Tartrate 50 MG BID 07/31 1000 AC 07/31 PO 2216 Nystatin 1 ADITHYA BID 08/01 1111 AC TOP Nystatin 1 ADITHYA BID PRN 07/29 1600 AC TOP Oxycodone/ 1 TAB Q6P PRN 07/29 1100 AC 08/01 Acetaminophen PO 0122 Phenytoin 200 MG BID 07/29 2200 AC 07/31 PO 2216 Polyethylene Glycol 17 GM BID 07/29 2200 AC 07/29 PO 2220 Senna 187 MG DAILY 07/30 1000 AC 07/30 PO 0949 Warfarin Sodium 2.5 MG COUMADIN 1700 ONE 08/01 1700 AC PO 08/01 1701 Vital Signs & I&O Last 24 Hrs of Vitals and I&O: Vital Signs Date Time Temp Pulse Resp B/P Pulse O2 O2 Flow FiO2 Ox Delivery Rate 08/01 1119 99 Nasal 3.0L Cannula 08/01 0817 98 Nasal 2.0L Cannula 08/01 0806 97.8 69 20 154/78 99 Nasal 3.0L Cannula 08/01 0014 71 99 08/01 0000 Nasal 3.0L Cannula 07/31 2300 98.6 69 18 138/62 99 Nasal 3.0L Cannula 07/31 2216 70 18 160/60 07/31 2116 95 Nasal 3.0L Cannula 07/31 1600 99 Nasal 3.0L Cannula Intake & Output 08/01 1600 08/01 0800 08/01 0000 Intake Total 240 340 Output Total 1200 Balance 240 -860 Intake, IV 100 Intake, Oral 240 240 Number 1 Bowel Movements Output, Urine 1200 Physical Exam General Appearance: awake, comfortable, following commands Head: atraumatic, normal appearance Ears, Nose, Throat: normal pharynx Neck: normal inspection, supple Respiratory: normal breath sounds, chest non-tender, no respiratory distress Cardiovascular: regular rate/rhythm, trace edema Gastrointestinal: normal bowel sounds, soft, non-tender Results Last 24 Hrs of Lab Results: Laboratory Tests 08/01/16 1111: pH 7.38, pCO2 39, pO2 90, HCO3 22, ABG O2 Sat (Measured) 97.0, P-50 (Temp Corrected) NO, Carboxyhemoglobin 0.3 L, O2 Concentration % 3L, Temperature 97.8 , O2 Delivery Method NC, Phlebotomy Draw Site LEFT RADIAL 08/01/16 0615: Anion Gap 9, Estimated GFR > 60, BUN/Creatinine Ratio 35.5 H, PT 25.4 H, INR 2.44 H, CBC w Diff NO MAN DIFF REQ, RBC 3.41 L, MCV 80.1, MCH 25.6 L, RDW 17.6 H, MPV 7.7, Gran % 76.8 H, Lymphocytes % 13.8 L, Monocytes % 6.9, Eosinophils % 2.3, Basophils % 0.2, Absolute Granulocytes 8.3 H, Absolute Lymphocytes 1.5, Absolute Monocytes 0.7 H, Absolute Eosinophils 0.3, Absolute Basophils 0, PUBS MCHC 31.9 L Impression/Plan Impression/Plan Impression/Plan: 1. Acute hypercarbic respiratory failure - the patient appears slightly more distressed this morning with increased wheezing. 2. Aspiration pneumonia, with evidence of significant aspiration on MBS. 3. Change in mental status/unresponsiveness likely related to medications, now improved. 4. Anemia without evidence of bleeding, likely dilutional. 5. Hyperkalemia, improved. 6. History of systolic heart failure and pulmonary hypertension, now with increased ascites on CT of the abdomen. Diuretics currently on hold as per cardiology. 7. 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 8. History of diabetes. 9. Obstructive sleep apnea with CPAP intolerance. 10. CAD status post CABG in 2001, AICD implantation in 2007. 11. Chronic kidney disease. Recommendations: * Change back to BiPAP on original settings. * Please request an albuterol nebulizer treatment from respiratory. * ABG reviewed, no evidence of hypercarbia at present. * Check a portable chest x-ray. * Continue IV Unasyn. * Monitor INR which is currently supratherapeutic, Coumadin on hold. * Continue nebs/TRC. * Follow up speech therapy recommendations. * Advance diet as tolerated. * Continue bowel regimen for chronic constipation. * Continue Levemir and sliding scale insulin. * Continue all supportive care. Discussed with covering housestaff. I asked him to contact me if the patient's condition changes or deteriorates.
--- NOTE | 2016-08-01 11:50 | RADIOLOGY REPORT ---
EXAMINATION: XR PORTABLE CHEST CLINICAL INFORMATION: Shortness of breath. Bilateral wheezing. COMPARISON: Chest done on 07/29/2016. TECHNIQUE: Portable AP view of the chest was obtained. FINDINGS: The cardiomediastinal silhouette is moderately enlarged. Low lung volume is present bilaterally. Nonspecific slight nodularity is noted throughout both lung wild, appear unchanged. No definite evidence of any pulmonary venous hypertension, pleural effusion or interstitial edema. The AICD device appear to be intact. No significant change. IMPRESSION: Persistent stable moderate enlargement of the cardiomediastinal silhouette, without any superimposed acute cardiopulmonary process or any significant change since 07/29/2016.
[2016-08-01 16:11] VITALS: BP 126/60
[2016-08-02 01:20] VITALS: BP 160/88
--- NOTE | 2016-08-02 07:27 | PN- Housestaff ---
See Addendum Subjective Follow-up For: Acute hypercarbic respiratory failure Aspiration pneumonia HFrEF 2/2 ischemic cardiomyopathy s/p AICD Atrial fibrillation IDDM CKD Tele-Events Since Last Visit: Single pacing HR 69 No overnight events Subjective: No acute events overnight. Patient seen and examined this morning. He is lying in bed and appears comfortable. Review of Systems Constitutional: Reports: see HPI. Objective Last 24 Hrs of Vital Signs/I&O Vital Signs Date Time Temp Pulse Resp B/P Pulse O2 O2 Flow FiO2 Ox Delivery Rate 08/02 1538 97.5 70 14 160/66 08/02 1140 70 160/66 08/02 1140 70 160/66 08/02 0923 96 Nasal 3.0L Cannula 08/02 0800 97 Nasal 3.0L Cannula 08/02 0746 70 14 150/72 100 BIPAP 08/02 0324 70 99 08/02 0120 97.5 70 20 160/88 98 CPAP 08/02 0058 70 98 08/02 0000 CPAP 08/01 2203 79 98 08/01 2116 69 160/76 Intake & Output 08/02 1600 08/02 0800 08/02 0000 Intake Total 300 200 600 Output Total Balance 300 200 600 Intake, IV 200 150 Intake, Oral 300 450 Number 1 2 Bowel Movements Physical Exam General Appearance: Alert, Oriented X3, No Acute Distress HEENT: Atraumatic, Mucous Membr. moist/pink Neck: Supple Cardiovascular: Regular Rate, Normal S1, Normal S2 Abdomen: Soft, No Tenderness, Positive Bowel Sounds, Obese Extremities: No Clubbing, No Cyanosis, No Edema Current Medications: Current Medications Sig/Phil Start time Last Medication Dose Route Stop Time Status Admin Acetaminophen 650 MG Q6P PRN 07/29 1100 DCD 08/01 PO 1348 Albuterol Sulfate 3 ML Q4P PRN 07/29 2230 DCD 08/01 INH 1105 Allopurinol 200 MG DAILY 07/30 1000 DCD 08/02 PO 1142 Amoxicillin/ 875 MG Q12 08/02 1000 DCD 08/02 Clavulanate Potassium PO 1139 Ampicillin Sodium/ 1,500 MG Q6 07/30 1200 DC 08/02 Sulbactam Sodium IV 08/02 0600 0620 Sodium Chloride 100 ML Aspirin Buffered 81 MG DAILY 07/30 1000 DCD 08/02 PO 1139 Atorvastatin Calcium 20 MG DAILY 07/30 1000 DCD 08/02 PO 1141 Docusate Sodium 100 MG BID 07/29 2200 DCD 08/01 PO 2112 Ezetimibe 10 MG DAILY 07/30 1000 DCD 08/02 PO 1138 Ferrous Sulfate 325 MG BID 07/31 1019 DCD 08/02 PO 1139 Fluoxetine HCl 40 MG DAILY 07/30 1000 DCD 08/02 PO 1138 Furosemide 40 MG DAILY 07/31 1340 DCD 08/02 PO 1139 Gabapentin 300 MG BID 08/02 1358 DCD PO Insulin Aspart 0 TIDAC 07/31 0800 DCD 08/02 SC 1318 Insulin Detemir 15 UNITS AT BEDTIME 07/29 2200 DCD 08/01 SC 2112 Lisinopril 40 MG DAILY 08/01 1100 DCD 08/02 PO 1140 Magnesium Hydroxide 30 ML DAILY PRN 07/29 1315 DCD PO Metolazone 2.5 MG 08/02 1000 DCD 08/02 PO 1138 Metoprolol Tartrate 50 MG BID 07/31 1000 DCD 08/02 PO 1140 Nystatin 1 ADITHYA BID 08/01 1111 DCD 08/02 TOP 1143 Nystatin 1 ADITHYA BID PRN 07/29 1600 DCD TOP Oxycodone/ 1 TAB Q6P PRN 07/29 1100 DCD 08/01 Acetaminophen PO 0122 Phenytoin 200 MG BID 07/290 DCD 08/02 PO 1139 Polyethylene Glycol 17 GM BID 07/29 220 DCD 07/29 PO 2220 Senna 187 MG DAILY 07/30 1000 DCD 07/30 PO 0949 Spironolactone 25 MG DAILY 08/02 1000 DCD 08/02 PO 1139 Last 24 Hrs of Lab/Emil Results Last 24 Hrs of Labs/Mics: Laboratory Tests 08/02/16 0625: Anion Gap 10, Estimated GFR > 60, BUN/Creatinine Ratio 34.0 H, PT 39.3 H, INR 3.79 H, CBC w Diff NO MAN DIFF REQ, RBC 3.46 L, MCV 80.1, MCH 25.4 L, RDW 17.6 H, MPV 7.5, Gran % 81.5 H, Lymphocytes % 10.5 L, Monocytes % 5.8, Eosinophils % 1.8, Basophils % 0.4, Absolute Granulocytes 10.0 H, Absolute Lymphocytes 1.3, Absolute Monocytes 0.7 H, Absolute Eosinophils 0.2, Absolute Basophils 0.1, PUBS MCHC 31.8 L Assessment/Plan Assessment: 70 y/o M with PMHx of HFrEF 2/2 ischemic cardiomyopathy s/p AICD, atrial fibrillation, BROOKS noncompliant on CPAP and left hemispheric CVA with residual aphasia and right-sided paralysis who is admitted for acute hypercarbic respiratory failure secondary to aspiration pneumonia. #Aspiration pneumonia: SOB improved. Remains on 3 L NC. * Discharge to SNF today with outpatient pulmonology follow up. * Continue Augmentin 875 mg PO BID for 7 more days for a total of 10 days of antibiotics. * Mechanical soft/ground and nectar thick liquids as recommended by speech therapy on discharge. #HFrEF: 2/2 ischemic cardiomyopathy. ECHO with LVEF 35-40%. S/p AICD placement. Appears euvolemic on exam. * Resume prior to admission medications amlodipine 7.5 mg PO daily, metoprolol 50 mg PO BID, Lasix 40 mg PO daily, lisinopril 40 mg PO daily, spirinolactone 25 mg PO daily and metolazone 2.5 mg PO MWF on discharge. * Follow up with cardiology in the office one week after discharge. #Atrial fibrillation: Takes warfarin 2.5 mg PO daily. INR has increased to 3.79 from 2.44 yesterday after receiving 2.5 mg of warfarin. * Holding today's dose of warfarin in the setting of setting of supratherapeutic INR. * INR should be checked on 08/03/16 so that warfarin can be dosed accordingly to keep INR between 2 and 3. #Hyperkalemia: K 4.4 today. * BMP should be checked on 08/05/16 to monitor hyperkalemia. #IDDM: * Continue Levemir 15 units SQ QHS. * Accu-checks and low-dose sliding scale Novolog TIDAC. #Iron deficiency anemia: * Continue ferrous sulfate 325 mg PO BID. #Constipation: * Continue aggressive bowel regiment with scheduled Colace, Miralax and Senna and PRN milk of magnesia. Diet: Consistent Carbohydrate 2 - Mechanical soft/ground and nectar thick liquids DVT PPx: Warfarin and ALPs CODE: DNR/DNI Problem List: 1. IDDM (insulin dependent diabetes mellitus) 2. Acute hypercapnic respiratory failure 3. HFrEF (heart failure with reduced ejection fraction) 4. Aspiration pneumonia 5. CKD (chronic kidney disease) 6. Atrial fibrillation 7. Iron deficiency anemia Pain Ratin Pain Location: N/A Pain Goal: Remain pain free Pain Plan: Percocet 1 tab PO Q6H PRN for moderate pain (scale 4-6) Tylenol 650 mg PO Q6H PRN for mild pain (scale 1-3) Tomorrow's Labs & Rationales: None Discharge Plan Discharge Disposition: STR/NH Stable for Discharge? Yes Anticipated Discharge (Day): today
[2016-08-02 07:46] VITALS: BP 150/72
[2016-08-02 08:01] LABS: ABSOLUTE BASOPHIL COUNT 0.1 /CUMM (0.0-0.2); ABSOLUTE EOSINOPHIL COUNT 0.2 /CUMM (0.0-0.7); ABSOLUTE LYMPH COUNT 1.3 /CUMM (1.2-3.4); ABSOLUTE MONOCYTE COUNT 0.7 /CUMM (0.10-0.60); BASOPHIL % 0.4 % (0.0-2.0); EOSINOPHIL % 1.8 % (0-5); GRANULOCYTE % 81.5 % (42.2-75.2); HEMATOCRIT 27.7 % (42-52); MEAN CORPUSCULAR HGB 25.4 PG (27.0-31.0); MEAN CORPUSCULAR HGB CONC 31.8 G/DL (33.0-37.0); MEAN CORPUSCULAR VOLUME 80.1 FL (80.0-94.0); MEAN PLATELET VOLUME 7.5 FL (7.4-10.4); PLATELET COUNT 253 /CUMM (130-400); RBC DISTRIBUTION WIDTH 17.6 % (11.5-14.5); RED BLOOD CELL CT 3.46 /CUMM (4.70-6.10); WHITE BLOOD CELL COUNT 12.3 /CUMM (4.8-10.8)
[2016-08-02 08:22] LABS: PT 39.3 SEC (9.4-12.5)
--- NOTE | 2016-08-02 09:39 | PN- Att Addend ---
Attending Addendum Attending Brief Note Patient is awake and alert. Appears in severe pain. General Appearance: Alert, No Acute Distress Skin: Grossly normal HEENT: PEERLA Neck: Supple, No JVD Cardiovascular: Regular Rate, Normal S1, Normal S2, No Murmurs Lungs: Decreased air entry Abdomen: Soft non tender abdomen, normal bowel sounds Neurological: Normal Speech, Strength at 5/5 X4 Ext, Cranial Nerves 3-12 NL, Reflexes 2+ Extremities: No Clubbing, No Cyanosis, No Edema Vascular: Normal Pulses Assessment Hypercarbic respiratory failure improved on when necessary BiPAP. on Augmentin. Clinically improved, however he complains of extreme pain and appears uncomfortable. We will repeat resume gabapentin at low dose. Stool guaiac negative and he has nutritional iron deficiency with anemia. Plan Augmentin for total 10 days Resume gabapentin 300 mg twice a day and observe for 24 hours BiPAP when necessary Ferrous sulfate 325 mg twice a day Out of bed to chair Percocet to 1 tab every 6 hour when necessary pain DNI/DNR Current Medications Sig/Phil Start time Last Medication Dose Route Stop Time Status Admin Acetaminophen 650 MG .STK-MED ONE 08/01 1342 DC PO 08/01 1343 Acetaminophen 650 MG Q6P PRN 07/29 1100 AC 08/01 PO 1348 Albuterol Sulfate 3 ML Q4P PRN 07/29 2230 AC 08/01 INH 1105 Allopurinol 200 MG DAILY 07/30 1000 AC 08/01 PO 1354 Amoxicillin/ 875 MG Q12 08/02 1000 AC Clavulanate Potassium PO Ampicillin Sodium/ 1,500 MG Q6 07/30 1200 DC 08/02 Sulbactam Sodium IV 08/02 0600 0620 Sodium Chloride 100 ML Aspirin Buffered 81 MG DAILY 07/30 1000 AC 07/31 PO 0854 Atorvastatin Calcium 20 MG DAILY 07/30 1000 AC 07/31 PO 0854 Docusate Sodium 100 MG BID 07/29 2200 AC 08/01 PO 2112 Ezetimibe 10 MG DAILY 07/30 1000 AC 07/31 PO 0854 Ferrous Sulfate 325 MG BID 07/31 1019 AC 08/01 PO 2112 Fluoxetine HCl 40 MG DAILY 07/30 1000 AC 07/31 PO 0854 Furosemide 40 MG DAILY 07/31 1340 AC 08/01 PO 1350 Insulin Aspart 0 TIDAC 07/31 0800 AC 04/12 SC 1806 Insulin Detemir 15 UNITS AT BEDTIME 07/29 2199 AC 08/01 SC 2112 Lisinopril 40 MG DAILY 08/01 1100 AC 08/01 PO 1350 Magnesium Hydroxide 30 ML DAILY PRN 07/29 1315 AC PO Metolazone 2.5 MG 08/02 1000 AC PO Metoprolol Tartrate 50 MG BID 07/31 1000 AC 08/01 PO 2116 Nystatin 1 ADITHYA BID 08/01 1111 AC 08/01 TOP 2113 Nystatin 1 ADITHYA BID PRN 07/29 1600 AC TOP Oxycodone/ 1 TAB Q6P PRN 07/29 1100 AC 08/01 Acetaminophen PO 0122 Phenytoin 200 MG BID 07/29 2200 AC 08/01 PO 2112 Polyethylene Glycol 17 GM BID 07/290 AC 07/29 PO 2220 Senna 187 MG DAILY 07/30 1000 AC 07/30 PO 0949 Spironolactone 25 MG DAILY 08/02 1000 AC PO Warfarin Sodium 2.5 MG COUMADIN 1700 ONE 08/01 1700 DC 08/01 PO 08/01 1701 1746 Laboratory Tests 08/02 08/01 0625 1111 Blood Gas pH (7.35 - 7.45 PH) 7.38 pCO2 (35 - 45 TORR) 39 pO2 (80 - 100 TORR) 90 HCO3 (21 - 28 MEQ/L) 22 ABG O2 Sat (Measured) (>96.0 %) 97.0 P-50 (Temp Corrected) NO Carboxyhemoglobin (1.5 - 5.0 %) 0.3 L O2 Concentration % 3L Temperature (97.0 - 100.0 FARH) 97.8 O2 Delivery Method NC Chemistry Sodium (137 - 145 mmol/L) 143 Potassium (3.5 - 5.1 mmol/L) 4.4 Chloride (98 - 107 mmol/L) 108 H Carbon Dioxide (22 - 30 mmol/L) 25 Anion Gap (5 - 16) 10 BUN (9 - 20 mg/dL) 34 H Creatinine (0.7 - 1.2 mg/dL) 1.0 Estimated GFR (>60 ml/min) > 60 BUN/Creatinine Ratio (7 - 25 %) 34.0 H Coagulation PT (9.4 - 12.5 SEC) 39.3 H INR (0.90 - 1.17) 3.79 H Hematology CBC w Diff NO MAN DIFF REQ WBC (4.8 - 10.8 /CUMM) 12.3 H RBC (4.70 - 6.10 /CUMM) 3.46 L Hgb (14.0 - 18.0 G/DL) 8.8 L Hct (42 - 52 %) 27.7 L MCV (80.0 - 94.0 FL) 80.1 MCH (27.0 - 31.0 PG) 25.4 L RDW (11.5 - 14.5 %) 17.6 H Plt Count (130 - 400 /CUMM) 253 MPV (7.4 - 10.4 FL) 7.5 Gran % (42.2 - 75.2 %) 81.5 H Lymphocytes % (20.5 - 51.1 %) 10.5 L Monocytes % (1.7 - 9.3 %) 5.8 Eosinophils % (0 - 5 %) 1.8 Basophils % (0.0 - 2.0 %) 0.4 Absolute Granulocytes (1.4 - 6.5 /CUMM) 10.0 H Absolute Lymphocytes (1.2 - 3.4 /CUMM) 1.3 Absolute Monocytes (0.10 - 0.60 /CUMM) 0.7 H Absolute Eosinophils (0.0 - 0.7 /CUMM) 0.2 Absolute Basophils (0.0 - 0.2 /CUMM) 0.1 PUBS MCHC (33.0 - 37.0 G/DL) 31.8 L Miscellaneous Phlebotomy Draw Site LEFT RADIAL Vital Signs Date Time Temp Pulse Resp B/P Pulse O2 O2 Flow FiO2 Ox Delivery Rate 08/02 0923 96 Nasal 3.0L Cannula 08/02 0746 70 14 150/72 100 BIPAP 08/02 0324 70 99 08/02 0120 97.5 70 20 160/88 98 CPAP 08/02 0058 70 98 08/02 0000 CPAP 08/01 2203 79 98 08/01 2116 69 160/76 08/01 1907 95 Nasal 3.0L Cannula 08/01 1611 97.8 72 20 126/60 98 Nasal 3.0L Cannula 08/01 1600 95 Nasal 3.0L Cannula 08/01 1350 72 156/62 08/01 1350 72 156/62 08/01 1119 99 Nasal 3.0L Cannula
--- NOTE | 2016-08-02 10:46 | PN- Pulmonary ---
Subjective HPI/Critical Care Issues: The patient is awake and alert. He has been reportedly in severe pain. Objective Current Medications: Current Medications Sig/Phil Start time Last Medication Dose Route Stop Time Status Admin Acetaminophen 650 MG .STK-MED ONE 08/01 1342 DC PO 08/01 1343 Acetaminophen 650 MG Q6P PRN 07/29 1100 AC 08/01 PO 1348 Albuterol Sulfate 3 ML Q4P PRN 07/29 2230 AC 08/01 INH 1105 Allopurinol 200 MG DAILY 07/30 1000 AC 08/01 PO 1354 Amoxicillin/ 875 MG Q12 08/02 1000 AC Clavulanate Potassium PO Ampicillin Sodium/ 1,500 MG Q6 07/30 1200 DC 08/02 Sulbactam Sodium IV 08/02 0600 0620 Sodium Chloride 100 ML Aspirin Buffered 81 MG DAILY 07/30 1000 AC 07/31 PO 0854 Atorvastatin Calcium 20 MG DAILY 07/30 1000 AC 07/31 PO 0854 Docusate Sodium 100 MG BID 07/29 2200 AC 08/01 PO 2112 Ezetimibe 10 MG DAILY 07/30 1000 AC 07/31 PO 0854 Ferrous Sulfate 325 MG BID 07/31 1019 AC 08/01 PO 2112 Fluoxetine HCl 40 MG DAILY 07/30 1000 AC 07/31 PO 0854 Furosemide 40 MG DAILY 07/31 1340 AC 08/01 PO 1350 Insulin Aspart 0 TIDAC 07/31 0800 AC 07/31 SC 1806 Insulin Detemir 15 UNITS AT BEDTIME 07/29 2200 AC 08/01 SC 2112 Lisinopril 40 MG DAILY 08/01 1100 AC 08/01 PO 1350 Magnesium Hydroxide 30 ML DAILY PRN 07/29 1315 AC PO Metolazone 2.5 MG 08/02 1000 AC PO Metoprolol Tartrate 50 MG BID 07/31 1000 AC 08/01 PO 2116 Nystatin 1 ADITHYA BID 08/01 1111 AC 08/01 TOP 2113 Nystatin 1 ADITHYA BID PRN 07/29 1600 AC TOP Oxycodone/ 1 TAB Q6P PRN 07/29 1100 AC 08/01 Acetaminophen PO 0122 Phenytoin 200 MG BID 07/29 2200 AC 08/01 PO 2112 Polyethylene Glycol 17 GM BID 07/29 2200 AC 07/29 PO 2220 Senna 187 MG DAILY 07/30 1000 AC 07/30 PO 0949 Spironolactone 25 MG DAILY 08/02 1000 AC PO Warfarin Sodium 2.5 MG COUMADIN 1700 ONE 08/01 1700 DC 08/01 PO 08/01 1701 1746 Vital Signs & I&O Last 24 Hrs of Vitals and I&O: Pending Exam General Appearance: no apparent distress, alert, awake, comfortable Head: atraumatic, normal appearance Neck: supple Respiratory: few faint scattered expiratory wheezes heard anteriorly, the lungs expand symmetrically and the trachea is midline Cardiovascular: S1 and S2 heard, no rubs murmurs or gallops Abdomen: normal bowel sounds, soft, non-tender Extremities: no edema Skin: intact, normal color, warm/dry Results Last 24 Hrs of Lab Results: Laboratory Tests 08/02/16 0625: Anion Gap 10, Estimated GFR > 60, BUN/Creatinine Ratio 34.0 H, PT 39.3 H, INR 3.79 H, CBC w Diff NO MAN DIFF REQ, RBC 3.46 L, MCV 80.1, MCH 25.4 L, RDW 17.6 H, MPV 7.5, Gran % 81.5 H, Lymphocytes % 10.5 L, Monocytes % 5.8, Eosinophils % 1.8, Basophils % 0.4, Absolute Granulocytes 10.0 H, Absolute Lymphocytes 1.3, Absolute Monocytes 0.7 H, Absolute Eosinophils 0.2, Absolute Basophils 0.1, PUBS MCHC 31.8 L 08/01/16 1111: pH 7.38, pCO2 39, pO2 90, HCO3 22, ABG O2 Sat (Measured) 97.0, P-50 (Temp Corrected) NO, Carboxyhemoglobin 0.3 L, O2 Concentration % 3L, Temperature 97.8 , O2 Delivery Method NC, Phlebotomy Draw Site LEFT RADIAL Impression/Plan Impression/Plan Impression/Plan: 1. Acute hypercarbic respiratory failure - improved overall. 2. Aspiration pneumonia, with evidence of significant aspiration on MBS. 3. Change in mental status/unresponsiveness likely related to medications, now improved. 4. Anemia without evidence of bleeding, likely dilutional. 5. Hyperkalemia, improved. 6. History of systolic heart failure and pulmonary hypertension, now with increased ascites on CT of the abdomen. Diuretics currently on hold as per cardiology. 7. 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 8. History of diabetes. 9. Obstructive sleep apnea with CPAP intolerance. 10. CAD status post CABG in 2001, AICD implantation in 2007. 11. Chronic kidney disease. Recommendations: * Continue AutoPap. * Continue nebs/TRC. * Continue IV Unasyn. * Monitor INR which is currently supratherapeutic, Coumadin on hold. * Follow up speech therapy recommendations. * Advance diet as tolerated. * Continue bowel regimen for chronic constipation. * Continue Levemir and sliding scale insulin. * Continue all supportive care.
--- NOTE | 2016-08-02 12:19 | PN- Cardiology ---
Subjective Subjective: Sitting up in bed. Appears comfortable. His tells me his appetite is poor this morning. Objective Vital Signs and I&Os Vital Signs Date Time Temp Pulse Resp B/P Pulse O2 O2 Flow FiO2 Ox Delivery Rate 08/02 1140 70 160/66 08/02 1140 70 160/66 08/02 0923 96 Nasal 3.0L Cannula 08/02 0746 70 14 150/72 100 BIPAP 08/02 0324 70 99 08/02 0120 97.5 70 20 160/88 98 CPAP 08/02 0058 70 98 08/02 0000 CPAP 08/01 2203 79 98 08/01 2116 69 160/76 08/01 1907 95 Nasal 3.0L Cannula 08/01 1611 97.8 72 20 126/60 98 Nasal 3.0L Cannula 08/01 1600 95 Nasal 3.0L Cannula 08/01 1350 72 156/62 08/01 1350 72 156/62 Intake & Output 08/02 1600 08/02 0800 08/02 0000 08/01 1600 08/01 0800 08/01 0000 Intake Total 200 600 110 240 340 Output Total 1200 Balance 200 600 110 240 -860 Intake, IV 200 150 110 100 Intake, Oral 450 0 240 240 Number 2 1 1 Bowel Movements Output, Urine 1200 Physical Exam: General: no apparent distress. Slurred speech. Follows commands. Eyes: No obvious scleral icterus. HEENT: No jugular venous distention or abnormal jugular venous pulsations. Cardiovascular: Normal intensity S1/S2. Regular. Respiratory: Mildly decreased air entry bilaterally Abdomen: no guarding or rebound tenderness. Musculoskeletal: No clubbing or cyanosis noted, no edema Skin: Warm Neurologic: Slurred speech, right-sided weakness (chronic) Current Medications: Current Medications Sig/Phil Start time Last Medication Dose Route Stop Time Status Admin Acetaminophen 650 MG .STK-MED ONE 08/01 1342 DC PO 08/01 1343 Acetaminophen 650 MG Q6P PRN 07/29 1100 AC 08/01 PO 1348 Albuterol Sulfate 3 ML Q4P PRN 07/29 2230 AC 08/01 INH 1105 Allopurinol 200 MG DAILY 07/30 1000 AC 08/02 PO 1142 Amoxicillin/ 875 MG Q12 08/02 1000 AC 08/02 Clavulanate Potassium PO 1139 Ampicillin Sodium/ 1,500 MG Q6 07/30 1200 DC 08/02 Sulbactam Sodium IV 08/02 0600 0620 Sodium Chloride 100 ML Aspirin Buffered 81 MG DAILY 07/30 1000 AC 08/02 PO 1139 Atorvastatin Calcium 20 MG DAILY 07/30 1000 AC 08/02 PO 1141 Docusate Sodium 100 MG BID 07/29 2200 AC 08/01 PO 2112 Ezetimibe 10 MG DAILY 07/30 1000 AC 08/02 PO 1138 Ferrous Sulfate 325 MG BID 07/31 1019 AC 08/02 PO 1139 Fluoxetine HCl 40 MG DAILY 07/30 1000 AC 08/02 PO 1138 Furosemide 40 MG DAILY 07/31 1340 AC 08/02 PO 1139 Insulin Aspart 0 TIDAC 07/31 0800 AC 07/31 SC 1806 Insulin Detemir 15 UNITS AT BEDTIME 07/29 2200 AC 08/01 SC 2112 Lisinopril 40 MG DAILY 08/01 1100 AC 08/02 PO 1140 Magnesium Hydroxide 30 ML DAILY PRN 07/29 1315 AC PO Metolazone 2.5 MG 08/02 1000 AC 08/02 PO 1138 Metoprolol Tartrate 50 MG BID 07/31 1000 AC 08/02 PO 1140 Nystatin 1 ADITHYA BID 08/01 1111 AC 08/02 TOP 1143 Nystatin 1 ADITHYA BID PRN 07/29 1600 AC TOP Oxycodone/ 1 TAB Q6P PRN 07/29 1100 AC 08/01 Acetaminophen PO 0122 Phenytoin 200 MG BID 07/29 2200 AC 08/02 PO 1139 Polyethylene Glycol 17 GM BID 07/29 2200 AC 07/29 PO 2220 Senna 187 MG DAILY 07/30 1000 AC 07/30 PO 0949 Spironolactone 25 MG DAILY 08/02 1000 AC 08/02 PO 1139 Warfarin Sodium 2.5 MG COUMADIN 1700 ONE 08/01 1700 DC 08/01 PO 08/01 1701 1746 Results Last 48 Hrs of Labs/Mics: Laboratory Tests 08/02/16 0625: Anion Gap 10, Estimated GFR > 60, BUN/Creatinine Ratio 34.0 H, PT 39.3 H, INR 3.79 H, CBC w Diff NO MAN DIFF REQ, RBC 3.46 L, MCV 80.1, MCH 25.4 L, RDW 17.6 H, MPV 7.5, Gran % 81.5 H, Lymphocytes % 10.5 L, Monocytes % 5.8, Eosinophils % 1.8, Basophils % 0.4, Absolute Granulocytes 10.0 H, Absolute Lymphocytes 1.3, Absolute Monocytes 0.7 H, Absolute Eosinophils 0.2, Absolute Basophils 0.1, PUBS MCHC 31.8 L 08/01/16 1111: pH 7.38, pCO2 39, pO2 90, HCO3 22, ABG O2 Sat (Measured) 97.0, P-50 (Temp Corrected) NO, Carboxyhemoglobin 0.3 L, O2 Concentration % 3L, Temperature 97.8 , O2 Delivery Method NC, Phlebotomy Draw Site LEFT RADIAL 08/01/16 0615: Anion Gap 9, Estimated GFR > 60, BUN/Creatinine Ratio 35.5 H, PT 25.4 H, INR 2.44 H, CBC w Diff NO MAN DIFF REQ, RBC 3.41 L, MCV 80.1, MCH 25.6 L, RDW 17.6 H, MPV 7.7, Gran % 76.8 H, Lymphocytes % 13.8 L, Monocytes % 6.9, Eosinophils % 2.3, Basophils % 0.2, Absolute Granulocytes 8.3 H, Absolute Lymphocytes 1.5, Absolute Monocytes 0.7 H, Absolute Eosinophils 0.3, Absolute Basophils 0, PUBS MCHC 31.9 L Recent Imaging Studies: Telemetry tracings were personally reviewed and show paced rhythm CXR yesterday IMPRESSION: Persistent stable moderate enlargement of the cardiomediastinal silhouette, without any superimposed acute cardiopulmonary process or any significant change since 07/29/2016. Assessment/Plan Assessment/Plan 1. Coronary artery disease status post coronary bypass surgery 2. Hx Ischemic cardiomyopathy ejection fraction 30% status post AICD 3. Persistent atrial fibrillation on Coumadin 4. CVA by history with aphasia and motor weakness wheelchair bound 5. Diabetes 6. Obstructive sleep apnea on CPAP 7. Hypertension now with borderline hypotension most likely secondary to pneumonia and sepsis, improving 8. Lethargy most likely secondary to community-acquired pneumonia with fever and elevated white count versus medication related 9. Ascites noted on CT the abdomen 10. Acute on chronic Renal insufficiency with hyperkalemia, improved 11. Anemia Creatinine and potassium have improved. He is now back on TASHA inhibitor, Aldactone, and Zaroxolyn. Adjust Coumadin to target INR of 2-3. Appears euvolemic on exam. Continue on daily oral Lasix. He has been transitioned to oral antibiotics. Follow-up in our office within one week of discharge. Maurice Brooks MD [facility] Continue telemetry? No
[2016-08-02] MEDS ORDERED: AMOX-CLAV 875-1 EACH PO (13:36)
[2016-08-02] MEDS ORDERED: LISINOPRIL20 M1 PO (13:36)
[2016-08-02] MEDS ORDERED: FERROUS SULFAT325 M2 PO (13:36)
--- NOTE | 2016-08-02 13:39 | Patient Discharge Instructions ---
Discharge Instructions General Discharge Information You were seen/treated for: Hypercarbic respiratory failure Pneumonia Special Instructions: -Please follow-up with your primary care provider within 7 days after discharge. -please follow-up with your door frame assembler machine 7 days after discharge -Please follow-up with your electron gun assembler 7 days after discharge -We have made changes to your home medications, please read the instructions carefully. -Please come back to the hospital if your symptoms got worse. Diet Recommended Diet: Diabetic Additional DIET Information: GROUND AND NECTAR Activity Full Activity/No Limits: Yes (as tolerated) Acute Coronary Syndrome Inclusion Criteria At DC or during hospital stay patient has or had the following: ACS DIAGNOSIS No Discharge Core Measures Meds if any: Prescribed or Continued at Discharge Meds if any: NOT Prescribed or Continued at Discharge Congestive Heart Failure Inclusion Criteria At DC or during hospital stay patient has or had the following: CHF DIAGNOSIS No Discharge Core Measures Meds if any: Prescribed or Continued at Discharge Meds if any: NOT Prescribed or Continued at Discharge Cerebrovascular accident Inclusion Criteria At DC or during hospital stay patient has or had the following: CVA/TIA Diagnosis No Discharge Core Measures Meds if any: Prescribed or Continued at Discharge Meds if any: NOT Prescribed or Continued at Discharge Venous thromboembolism Inclusion Criteria VTE Diagnosis No VTE Type NONE VTE Confirmed by (Test) NONE Discharge Core Measures - Per Current guidelines, there needs to be overlap - treatment for the first 5 days of Warfarin therapy. - If discharged on Warfarin prior to 5 days of - overlap therapy, the patient will need to be - assessed for post discharge needs including - *Post discharge parental anticoagulation - *Warfarin and/or parental anticoagulation education - *Follow up date to check INR post discharge At least 5 days overlap therapy as Inpatient No Meds if any: Prescribed or Continued at Discharge Note: Overlap Therapy is Warfarin and Anticoagulant Meds if any: NOT Prescribed or Continued at Discharge
--- NOTE | 2016-08-02 14:03 | Discharge Summary ---
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 VS on admission: BP 146/65, HR 70, RR 24, SPO2 94% on 3L NC, T 98.0 Physical Exam General Appearance patient is laying in bed unresponsive at this time, minimally arousable to sternal rub Skin No Breakdown HEENT Mucous Membr. moist/pink Cardiovascular Normal S1, Normal S2, irregularly irregular heart rhythm. Distant heart sounds Lungs currently on BiPAP, distant lung sounds, no evidence of wheezing at this time Abdomen Soft, No Tenderness, distended abdomen, tympanic to percussion Neurological unable to complete neuro assessment at this time due to clinical condition. Positive Babinski on left foot Extremities Normal Pulses, 2+ pitting edema on RLE, chronic Vascular Pulses Symmetrical 07/29/16 0940: pH 7.28 *L, pCO2 50 H, pO2 137 H, HCO3 23, ABG O2 Sat (Measured) 97.0, P-50 ( Temp Corrected) N, Carboxyhemoglobin 1.3 L, O2 Concentration % 3L, Temperature 97.9, O2 Delivery Method N/C, Phlebotomy Draw Site LEFT RADIAL 07/29/16 0923: Plasma Potassium 5.9 H 07/29/16 0911: Lactic Acid 0.7 07/29/16 0828: Urinalysis LIGHT H, Urine Color YEL, Urine Clarity HAZY H, Urine pH 6.0, Ur Specific [place] 1.020, Urine Protein 30 H, Urine Ketones NEG, Urine Nitrite NEG, Urine Bilirubin NEG, Urine Urobilinogen 0.2, Ur Leukocyte Esterase MOD H, Ur Microscopic SEDIMENT EXAMINED, Urine RBC 1-3, Urine WBC 5-10 H, Ur Epithelial Cells FEW, Urine Bacteria FEW H, Hyaline Casts 1-3 H, Urine Hemoglobin TRACE-INTACT H, Urine Glucose NEG 07/29/16 0800: Anion Gap 10, Estimated GFR 46 L, BUN/Creatinine Ratio 34.0 H, Glucose 144 H, Calcium 8.5, Magnesium 3.2 H, Total Bilirubin 0.6, AST 22, ALT 32, Alkaline Phosphatase 135 H, Creatine Kinase < 20 L, Troponin I 0.02, Rda-V-Touachpxovg Pept 6230 H, Total Protein 6.3, Albumin 3.3 L, Globulin 3.0, Albumin/Globulin Ratio 1.1, TSH 1.390, PT 28.0 H, INR 2.69 H, APTT 37, CBC w Diff MAN DIFF ORDERED, RBC 3.77 L, MCV 80.8, MCH 25.5 L, RDW 18.0 H, MPV 7.5, Gran % 83.0 H, Lymphocytes % 9.8 L, Monocytes % 5.7, Eosinophils % 0.6, Basophils % 0.9, Absolute Granulocytes 17.3 H, Absolute Lymphocytes 2.0, Absolute Monocytes 1.2 H, Absolute Eosinophils 0.1, Absolute Basophils 0.2, Platelet Estimate ADEQUATE, Polychromasia 1+, Hypochromic-Microcytic 1+, Anisocytosis 1+, PUBS MCHC 31.6 L, Phenytoin 10.0 Diagnostic Data EKG Results Ventricular paced rhythm. HR 70 bpm. Low voltage throughout. Nonspecific ST depression. QTC 441 CXR Results Mild cardiomegaly and surgical changes from remote coronary artery bypass grafting. No acute cardiopulmonary findings compared to 11/20/2012. Other Results CT chest: Groundglass opacities bilaterally are nonspecific. These may be infectious or inflammatory in etiology. Hypersensitivity reaction is possible. No septal thickening seen to suggest edema. Scattered filling defects within the bronchi could be associated with aspiration. Assessment and plan 1. Hypercarbic restrictive failure/pneumonia/sepsis Patient was put on BiPAP and was treated ceftaz and vanc initially however was changed to with Unasyn for aspiration pneumonia. His overall clinical status improved. Modified barium swallow showed " Tracheal penetration was observed during swallowing of relatively large volumes of thin barium contrast." After several swallow evaluations, patient was finally we Put him on nectar full liquids and ground for solids. Patient does require when necessary BiPAP per pulmonology recommendation. we changed medication to by mouth Augmentin for complete 10 days of antibiotic therapy. 2. Hyperkalemia We discontinued his prolactin and insulin. Initially however patient hyperkalemia improved and we restarted his amlodipine, metolazone , spironolactone, lisinopril(lower dose), metoprolol and d/c his potassium supplement for now. BEP should be checked on 2016. 3. HFrEF (LVEF 35-40% 2011), pulm HTN (60mmHG), CAD s/p CABG (2001), AICD (2007) cardiology was on board. Repeat echocardiogram showed " Left ventricle not well visualized. Mildly abnormal left ventricular ejection fraction estimated at 35- 40%. All segments are not well seen." He gradually resumed his blood pressure medication. Patient to follow- up with Dr. Gay's group in an outpatient setting within 7 days. 4. Supratherapeutic INR Patient INR was supratherapeutic on admission. It trended down to 2.44 and we gave the patient 2.5 mg warfarin. However upon discharge patient's INR was 3.74. Thus we held warfarin. INR should be checked on 08/03/2016 and warfarin should be dosed accordingly. Allergies: Coded Allergies: nickel (UNKNOWN 07/10/15) Disposition Summary Disposition Principal Diagnosis: Respiratory failure and pneumonia Additional Diagnosis: Diabetes Hypertension Discharge Disposition: SNF Discharge Instructions General Discharge Information Code Status: Do Not Resucitate/Intubat Patient's Diet: Diabetes grounds for soild and nectar for fluids Patient's Activity: As tolerated Follow-Up Instructions/Appts: -Please follow-up with your primary care provider within 7 days after discharge. -please follow-up with your neurological surgeon 7 days after discharge -Please follow-up with your scientologist 7 days after discharge -We have made changes to your home medications, please read the instructions carefully. -Please come back to the hospital if your symptoms got worse. Medications at Discharge Discharge Medications: Stop taking the following medications: Potassium Chloride (Potassium Chloride) 20 MEQ TAB.ER.PRT ORAL DAILY @8 AM Lisinopril (Lisinopril) 30 MG TABLET ORAL DAILY Potassium Chloride (Potassium Chloride) 20 MEQ TAB.ER.PRT ORAL 1800 Gabapentin (Gabapentin) 600 MG TABLET ORAL 1600 Warfarin Sodium (Coumadin) 2.5 MG TABLET ORAL DAILY Continue taking these medications: Metolazone (Metolazone) 2.5 MG TABLET 1 Tablet ORAL FRIDAY, FRIDAY AND FRIDAY Pantoprazole Sodium (Pantoprazole Sodium) 40 MG TABLET.DR 1 Tablet ORAL DAILY Sodium Chloride (Deep Sea) 0.65 % SPRAY 2 [place] Both sides of nose THREE TIMES DAILY Amlodipine Besylate (Amlodipine Besylate) 5 MG TABLET 7.5 Milligram ORAL DAILY Spironolactone (Aldactone) 25 MG TABLET 1 Tablet ORAL DAILY Fluoxetine HCl (Prozac) 40 MG CAPSULE 1 Capsule ORAL DAILY Docusate Sodium (Docusate Sodium) 100 MG CAPSULE 1 Capsule ORAL TWICE DAILY Polyethylene Glycol 3350 (Miralax) 17 GRAM POWD.PACK 1 Packet ORAL TWICE DAILY Instructions: dissolve in water Aspirin (Ecotrin*) 81 MG TABLET.DR 1 Tablet ORAL DAILY Multivitamin (Multi-Day Vitamins) 1 EACH TABLET 1 Tablet ORAL DAILY Mag Hydrox/Al Hydrox/Simeth (Almacone Liquid) (Unknown Strength) ORAL.SUSP 30 Milliliters ORAL DAILY Allopurinol (Allopurinol) 100 MG TABLET 2 Tablet ORAL DAILY Phenytoin (Dilantin) 100 MG CAPSULE 2 Capsule ORAL TWICE DAILY Metoprolol Tartrate (Lopressor) 50 MG TABLET 1 Tablet ORAL TWICE DAILY Sennosides (Senna) 8.6 MG TABLET 2 Tablet ORAL DAILY Ezetimibe (Zetia) 10 MG TABLET 1 Tablet ORAL DAILY Insulin Glargine,Hum.rec.anlog (Lantus Solostar) 100 UNIT/ML (3 ML) INSULN.PEN 15 Units Inject into fatty tissue TAKE AT BEDTIME Atorvastatin Calcium (Atorvastatin Calcium) 20 MG TABLET 1 Tablet ORAL DAILY Furosemide (Lasix) 40 MG TABLET 1 Tablet ORAL DAILY Gabapentin (Gabapentin) 300 MG CAPSULE 1 Capsule ORAL TWICE DAILY Guaifenesin (Guaifenesin) 400 MG TABLET 1 Tablet ORAL TWICE DAILY Mag Hydrox/Al Hydrox/Simeth (Maalox Advanced Suspension) 200 MG-200 MG-20 MG/5 ML ORAL.SUSP 30 Milliliters ORAL Q4H as needed for GASTRITIS Acetaminophen (Acephen) 650 MG SUPP.RECT 1 SUPPOSITORY RECTALLY Q4H as needed for PAIN/TEMP>/100 Acetaminophen (Acetaminophen) 325 MG TABLET 2 Tablet ORAL Q4H as needed for PAIN/TEMP>/100 Na Phos,M-B/Na Phos,Di-Ba (Fleet Enema) 19 GRAM-7 GRAM/118 ML ENEMA 1 Enema RECTAL DAILY as needed for CONSTIPATION Magnesium Hydroxide (Milk Of Magnesia) 400 MG/5 ML ORAL.SUSP 30 Milliliters ORAL DAILY as needed for CONSTIPATION Ipratropium/Albuterol Sulfate (Iprat-Albut 0.5-3(2.5) MG/3 Ml) 0.5 MG-3 MG (2.5 MG BASE)/3 ML AMPUL.NEB 1 Unit Inhale through mouth Q4H as needed for SOB/WHEEZING/RESP.DISTRESS Oxycodone HCl/Acetaminophen (Percocet 5-325 MG Tablet) 5 MG-325 MG TABLET 1 Tablet ORAL Q8H as needed for PAIN Trazodone HCl (Trazodone HCl) 50 MG TABLET 25 Milligram ORAL as needed for INSOMNIA Start taking the following new medications: Amoxicillin/Clavulanate Potass (Amox-Clav 875-125 MG Tablet) 875 MG-125 MG TABLET 875 Milligram ORAL EVERY 12 HOURS Days = 7 No Refills Ferrous Sulfate (Ferrous Sulfate) 325 MG (65 MG IRON) TABLET.DR 325 Milligram ORAL TWICE DAILY Days = 28 No Refills Lisinopril (Lisinopril) 20 MG TABLET 40 Milligram ORAL DAILY Days = 28 No Refills Copies To: MARISELA PRESLEY,Reji ASENCIO; SUSI PRESLEY,CORTEZ Kirk; DELANEY PRESLEY,ABBIE
[2016-08-02 15:38] VITALS: BP 160/66
== END 2016-08-02 16:00 | DRG 177 ==
LOC: ENRESERVDT → ENRESERVTM → ERH 07:49 → ERHI 10:49 → CRI 10:49 → ENPENDDIS 10:49 → CRI 14:10 → 1NO 07-31 23:03
PROVIDERS: Dermatology; Internal Medicine; Physician Assistant Medical; Student in an Organized Health Care Education/Training Program; ADMIT Internal Medicine
PROC: 5A09357 Assistance with Respiratory Ventilation, Less than 24 Consecutive Hours, Continuous Positive Airway Pressure (ICD-10-PCS; principal; 2016-07-29)
DX: J69.0 Pneumonitis due to inhalation of food and vomit (principal); J96.02 Acute respiratory failure with hypercapnia; I69.959 Hemiplegia and hemiparesis following unspecified cerebrovascular disease affecting unspecified side; I13.0 Hypertensive heart and chronic kidney disease with heart failure and stage 1 through stage 4 chronic kidney disease, or unspecified chronic kidney disease; I50.22 Chronic systolic (congestive) heart failure; I27.2 Other secondary pulmonary hypertension; E87.5 Hyperkalemia; Z68.41 Body mass index [BMI] 40.0-44.9, adult; I25.5 Ischemic cardiomyopathy; E66.01 Morbid (severe) obesity due to excess calories; E11.9 Type 2 diabetes mellitus without complications; N18.9 Chronic kidney disease, unspecified; Z95.1 Presence of aortocoronary bypass graft; Z79.4 Long term (current) use of insulin; Z95.0 Presence of cardiac pacemaker; G47.33 Obstructive sleep apnea (adult) (pediatric); Z66 Do not resuscitate; D50.9 Iron deficiency anemia, unspecified
CPT/HCPCS: 1NSP; CCU; 36415; 74176; 74230; 80307; 81001; 82436; 87040; 87086; 87804; 87804-59; 93005; 93010; 93306; 96365; 96375; 99291; J0610; J0696; J0713; J1815; J2310; J3370; J7040